=== PATIENT | male | born 1965 | race Caucasian/White ===

== ENCOUNTER 2018-06-03 11:03 | Emergency (ER) | payer MEDICARE, MEDICAID, SELFPAY ==
[2018-06-03 11:06] VITALS: BP 136/82; PULSE 90; RESP 18; TEMP 36.2; O2SAT 98
--- NOTE | 2018-06-03 11:12 | DI.RAD.S_ITS ---
PROCEDURE: XR KNEE RT 3V INDICATIONS: twist and fall TECHNIQUE: 3 views of the knee were acquired. COMPARISON: None. FINDINGS: Bones: No fractures or dislocations. No suspicious bony lesions. Soft tissues: No joint effusion. No suspicious soft tissue calcifications. IMPRESSION: No acute radiographic findings. If pain persists, followup imaging in 5-7 days is recommended to exclude occult fracture. Dictated by: Erma Jewell M.D. on 06/03/2018 at 12:28 Approved by: Erma Jewell M.D. on 06/03/2018 at 12:28
--- NOTE | 2018-06-03 11:56 | ED.LOWEXIN ---
HPI - Extremity Injury (Lower) <Mony Parra PA-C - Last Filed: 06/03/18 19:37> General Chief Complaint: Extremity Injury, Lower Stated Complaint: FELL, HURT RT KNEE Time Seen by Provider: 06/03/18 11:43 Source: patient Mode of arrival: ambulatory Limitations: no limitations History of Present Illness HPI Narrative: This 52-year-old male slipped on ice last night and fell with his right knee at an awkward angle. He states that it is jacked up . He denies any other injury. He is not sure the exactly how he landed. He states that he was able to get up and bear weight but it was very painful and continues to hurt a lot today. He did take some aspirin, but not feeling better so came here to make sure no fracture. He states he does have a feeling like the knee will give out when he bears weight as well. He denies any other complaints today. He does take pain medication for chronic back problems. Related Data Home Medications Medication Instructions Recorded Confirmed aspirin 325 mg PO DAILY 06/03/18 06/03/18 cyclobenzaprine 10 mg PO TID PRN 06/03/18 06/03/18 methocarbamol 500 mg PO DAILY 06/03/18 06/03/18 quetiapine [Seroquel] 50 mg PO BEDTIME 06/03/18 06/03/18 Previous Rx's Medication Instructions Recorded hydrocodone-acetaminophen [[place]] 1 tab PO Q6H PRN #4 tab 06/03/18 meloxicam [Mobic] 15 mg PO DAILY #10 tab 06/03/18 Allergies Allergy/AdvReac Type Severity Reaction Status Date / Time Penicillins Allergy Severe Anaphylaxis Verified 06/03/18 11:09 Review of Systems <Mony Parra PA-C - Last Filed: 06/03/18 19:37> Review of Systems ROS Unobtainable: All systems reviewed & are unremarkable except as noted in HPI and below PFSH <Mony Parra PA-C - Last Filed: 06/03/18 19:37> Medical History Chronic back pain (Chronic) Degenerative disc disease (Chronic) Smoker (Chronic) Surgical History History of colostomy reversal (Resolved) Status post cholecystectomy (Resolved) Status post exploratory laparotomy (Resolved) Status post rotator cuff repair (Resolved) Family History Other No pertinent family history in first degree relatives Social History Smoking Status: Current every day smoker Family History Other No pertinent family history in first degree relatives Social History Smoking Status: Current every day smoker Exam <Mony Parra PA-C - Last Filed: 06/03/18 19:37> Narrative Exam Narrative: GENERAL APPEARANCE: Patient sitting comfortably, in no distress. LUNGS: Clear to auscultation bilaterally. HEART: Rate and rhythm regular without murmur, normal S1 and S2, no S3 or S4. MUSCULOSKELETAL: Right knee there is no effusion. No joint line tenderness but he is tender superior medial to the joint line. He has limited range of motion actively secondary to tenderness, near full passive range of motion. Unable to assess for laxity secondary to tenderness. Initial Vital Signs Initial Vital Signs: Vital Signs Temperature 97.1 F L 06/03/18 11:06 Pulse Rate 90 06/03/18 11:06 Respiratory Rate 18 06/03/18 11:06 Blood Pressure 136/82 06/03/18 11:06 Pulse Oximetry 98 06/03/18 11:06 <Narcisa Owens DO - Last Filed: 06/05/18 07:20> Initial Vital Signs Initial Vital Signs: Vital Signs Temperature 97.1 F L 06/03/18 11:06 Pulse Rate 90 06/03/18 11:06 Respiratory Rate 18 06/03/18 11:06 Blood Pressure 136/82 06/03/18 11:06 Pulse Oximetry 98 06/03/18 11:06 Course <Mony Parra PA-C - Last Filed: 06/03/18 19:37> Additional Information: Patient is comfortable ambulating with knee immobilizer. He will follow up with PCM in a few days for repeat exam and to determine whether any further workup/imaging needed. Orders Ordered: Discontinued Medications Hydrocodone Bitart/Acetaminophen ([place] 5/325) 2 tab PO NOW ONE Stop: 06/03/18 12:25 Last Admin: 06/03/18 12:27 Dose: 2 tab Vital Signs - 8 hr 06/03/18 12:53 Pulse Rate 87 Respiratory Rate 18 Blood Pressure [Left Arm] 134/94 H Pulse Oximetry 95 <Narcisa Owens DO - Last Filed: 06/05/18 07:20> Orders Ordered: Discontinued Medications Hydrocodone Bitart/Acetaminophen ([place] 5/325) 2 tab PO NOW ONE Stop: 06/03/18 12:25 Last Admin: 06/03/18 12:27 Dose: 2 tab Vital Signs - 8 hr 06/03/18 12:53 Pulse Rate 87 Respiratory Rate 18 Blood Pressure [Left Arm] 134/94 H Pulse Oximetry 95 MDM - Extremity Injury (Lower) <Mony Parra PA-C - Last Filed: 06/03/18 19:37> Imaging Data knee: Radiologist's impression: Shane Antunez 52 M [address] [address] XRay Report Signed Patient: Shane Antunez MMR#: [id number] : 1965Acct:[id number] Age/Sex: 52 / MDate of Service: 06/03/18 Loc: ED Accession Number: [id number] Procedure: XR knee RT 3V Ordering Provider: Narcisa Owens D.O. PROCEDURE: XR KNEE RT 3V INDICATIONS: twist and fall TECHNIQUE: 3 views of the knee were acquired. COMPARISON: None. FINDINGS: Bones: No fractures or dislocations. No suspicious bony lesions. Soft tissues: No joint effusion. No suspicious soft tissue calcifications. IMPRESSION: No acute radiographic findings. If pain persists, followup imaging in 5-7 days is recommended to exclude occult fracture. Dictated by: Erma Jewell M.D. on 06/03/2018 at 12:28 Approved by: Erma Jewell M.D. on 06/03/2018 at 12:28 Discharge Plan Departure Patient Disposition: Home Clinical Impression: Internal derangement of knee Qualifiers: Laterality: right Qualified Code(s): M23.91 - Unspecified internal derangement of right knee Discharge Date/Time: 06/03/18 13:04 Interventions: ED Discharge Assessment Last Done: 06/03/18 13:03 Instructions: DI for Knee Pain Activity Restrictions/Additional Instructions: Please wear your knee brace whenever your bearing weight. Rest Try the once daily anti-inflammatory meloxicam that I have sent in for you, as this is more likely to help the acute inflammation than your back pain medicine. Please see your PCP in a few days to reassess. If you are not getting better, you may need further testing and referral. Return if you have any acutely worsening symptoms in the interim Prescriptions: New hydrocodone-acetaminophen [[place]] 5-325 mg tablet 1 tab PO Q6H PRN (Reason: acute knee pain) Qty: 4 RF: 0 meloxicam [Mobic] 15 mg tablet 15 mg PO DAILY Qty: 10 RF: 0 No Action cyclobenzaprine 10 mg Tablet 10 mg PO TID PRN (Reason: Back Pain) RF: 0 methocarbamol 500 mg tablet 500 mg PO DAILY RF: 0 aspirin 325 mg Tablet 325 mg PO DAILY RF: 0 quetiapine [Seroquel] 50 mg Tablet 50 mg PO BEDTIME RF: 0 Referrals: Abdi Allne MD [Non-Staff] - <Narcisa Owens DO - Last Filed: 06/05/18 07:20> Cosign ED Attending Cosignature Attestation: I was immediately available in the department for consultation. This documentation has been reviewed and I agree with assessment and plan. Supervised by Narcisa Owens DO
[2018-06-03] MEDS: HYDROCODONE/ACET 5/325 TABLET 2 TAB PO (12:27)
--- NOTE | 2018-06-03 12:36 | ED_ITS ---
HPI - Extremity Injury (Lower) <Mony Parra PA-C - Last Filed: 06/03/18 19:37> General Chief Complaint: Extremity Injury, Lower Stated Complaint: FELL, HURT RT KNEE Time Seen by Provider: 06/03/18 11:43 Source: patient Mode of arrival: ambulatory Limitations: no limitations History of Present Illness HPI Narrative: This 52-year-old male slipped on ice last night and fell with his right knee at an awkward angle. He states that it is jacked up . He denies any other injury. He is not sure the exactly how he landed. He states that he was able to get up and bear weight but it was very painful and continues to hurt a lot today. He did take some aspirin, but not feeling better so came here to make sure no fracture. He states he does have a feeling like the knee will give out when he bears weight as well. He denies any other complaints today. He does take pain medication for chronic back problems. Related Data Home Medications Medication Instructions Recorded Confirmed aspirin 325 mg PO DAILY 06/03/18 06/03/18 cyclobenzaprine 10 mg PO TID PRN 06/03/18 06/03/18 methocarbamol 500 mg PO DAILY 06/03/18 06/03/18 quetiapine [Seroquel] 50 mg PO BEDTIME 06/03/18 06/03/18 Previous Rx's Medication Instructions Recorded hydrocodone-acetaminophen [[place]] 1 tab PO Q6H PRN #4 tab 06/03/18 meloxicam [Mobic] 15 mg PO DAILY #10 tab 06/03/18 Allergies Allergy/AdvReac Type Severity Reaction Status Date / Time Penicillins Allergy Severe Anaphylaxis Verified 06/03/18 11:09 Review of Systems <Mony Parra PA-C - Last Filed: 06/03/18 19:37> Review of Systems ROS Unobtainable: All systems reviewed & are unremarkable except as noted in HPI and below PFSH <Mony Parra PA-C - Last Filed: 06/03/18 19:37> Medical History Chronic back pain (Chronic) Degenerative disc disease (Chronic) Smoker (Chronic) Surgical History History of colostomy reversal (Resolved) Status post cholecystectomy (Resolved) Status post exploratory laparotomy (Resolved) Status post rotator cuff repair (Resolved) Family History Other No pertinent family history in first degree relatives Social History Smoking Status: Current every day smoker Family History Other No pertinent family history in first degree relatives Social History Smoking Status: Current every day smoker Exam <Mony Parra PA-C - Last Filed: 06/03/18 19:37> Narrative Exam Narrative: GENERAL APPEARANCE: Patient sitting comfortably, in no distress. LUNGS: Clear to auscultation bilaterally. HEART: Rate and rhythm regular without murmur, normal S1 and S2, no S3 or S4. MUSCULOSKELETAL: Right knee there is no effusion. No joint line tenderness but he is tender superior medial to the joint line. He has limited range of motion actively secondary to tenderness, near full passive range of motion. Unable to assess for laxity secondary to tenderness. Initial Vital Signs Initial Vital Signs: Vital Signs Temperature 97.1 F L 06/03/18 11:06 Pulse Rate 90 06/03/18 11:06 Respiratory Rate 18 06/03/18 11:06 Blood Pressure 136/82 06/03/18 11:06 Pulse Oximetry 98 06/03/18 11:06 <Narcisa Owens DO - Last Filed: 06/05/18 07:20> Initial Vital Signs Initial Vital Signs: Vital Signs Temperature 97.1 F L 06/03/18 11:06 Pulse Rate 90 06/03/18 11:06 Respiratory Rate 18 06/03/18 11:06 Blood Pressure 136/82 06/03/18 11:06 Pulse Oximetry 98 06/03/18 11:06 Course <Mony Parra PA-C - Last Filed: 06/03/18 19:37> Additional Information: Patient is comfortable ambulating with knee immobilizer. He will follow up with PCM in a few days for repeat exam and to determine whether any further workup/imaging needed. Orders Ordered: Discontinued Medications Hydrocodone Bitart/Acetaminophen ([place] 5/325) 2 tab PO NOW ONE Stop: 06/03/18 12:25 Last Admin: 06/03/18 12:27 Dose: 2 tab Vital Signs - 8 hr 06/03/18 12:53 Pulse Rate 87 Respiratory Rate 18 Blood Pressure [Left Arm] 134/94 H Pulse Oximetry 95 <Narcisa Owens DO - Last Filed: 06/05/18 07:20> Orders Ordered: Discontinued Medications Hydrocodone Bitart/Acetaminophen ([place] 5/325) 2 tab PO NOW ONE Stop: 06/03/18 12:25 Last Admin: 06/03/18 12:27 Dose: 2 tab Vital Signs - 8 hr 06/03/18 12:53 Pulse Rate 87 Respiratory Rate 18 Blood Pressure [Left Arm] 134/94 H Pulse Oximetry 95 MDM - Extremity Injury (Lower) <Mony Parra PA-C - Last Filed: 06/03/18 19:37> Imaging Data knee: Radiologist's impression: Shane Antunez 52 M [address] [address] XRay Report Signed Patient: Shane Antunez MMR#: [id number] : 1965Acct:[id number] Age/Sex: 52 / MDate of Service: 06/03/18 Loc: ED Accession Number: [id number] Procedure: XR knee RT 3V Ordering Provider: Narcisa Owens D.O. PROCEDURE: XR KNEE RT 3V INDICATIONS: twist and fall TECHNIQUE: 3 views of the knee were acquired. COMPARISON: None. FINDINGS: Bones: No fractures or dislocations. No suspicious bony lesions. Soft tissues: No joint effusion. No suspicious soft tissue calcifications. IMPRESSION: No acute radiographic findings. If pain persists, followup imaging in 5-7 days is recommended to exclude occult fracture. Dictated by: Erma Jewell M.D. on 06/03/2018 at 12:28 Approved by: Erma Jewell M.D. on 06/03/2018 at 12:28 Discharge Plan Departure Patient Disposition: Home Clinical Impression: Internal derangement of knee Qualifiers: Laterality: right Qualified Code(s): M23.91 - Unspecified internal derangement of right knee Discharge Date/Time: 06/03/18 13:04 Interventions: ED Discharge Assessment Last Done: 06/03/18 13:03 Instructions: DI for Knee Pain Activity Restrictions/Additional Instructions: Please wear your knee brace whenever your bearing weight. Rest Try the once daily anti-inflammatory meloxicam that I have sent in for you, as this is more likely to help the acute inflammation than your back pain medicine. Please see your PCP in a few days to reassess. If you are not getting better, you may need further testing and referral. Return if you have any acutely worsening symptoms in the interim Prescriptions: New hydrocodone-acetaminophen [Rector] 5-325 mg tablet 1 tab PO Q6H PRN (Reason: acute knee pain) Qty: 4 RF: 0 meloxicam [Mobic] 15 mg tablet 15 mg PO DAILY Qty: 10 RF: 0 No Action cyclobenzaprine 10 mg Tablet 10 mg PO TID PRN (Reason: Back Pain) RF: 0 methocarbamol 500 mg tablet 500 mg PO DAILY RF: 0 aspirin 325 mg Tablet 325 mg PO DAILY RF: 0 quetiapine [Seroquel] 50 mg Tablet 50 mg PO BEDTIME RF: 0 Referrals: Abdi Allen MD [Non-Staff] - <Narcisa Owens DO - Last Filed: 06/05/18 07:20> Cosign ED Attending Cosignature Attestation: I was immediately available in the department for consultation. This documentation has been reviewed and I agree with assessment and plan. Supervised by Narcisa Owens DO
[2018-06-03 12:53] VITALS: BP 134/94; PULSE 87; RESP 18; O2SAT 95
== END 2018-06-03 13:04 | disposition home or self-care (01) ==
PROVIDERS: Emergency Provider Internal Medicine
DX: M23.91 Unspecified internal derangement of right knee (principal); W01.0XXA Fall on same level from slipping, tripping and stumbling without subsequent striking against object, initial encounter
CPT/HCPCS: 29530; 73562; 99283

== ENCOUNTER → 2018-09-17 12:34 | Outpatient (CLI) | payer MEDICARE, MEDICAID, SELFPAY ==
--- NOTE | 2018-09-17 | DI.MRI.S_ITS ---
PROCEDURE: MR KNEE RT WO CON INDICATIONS: Sprain of medial collateral ligament of right knee. Medial right knee pain TECHNIQUE: Noncontrast sagittal PD fast spin echo and T2 fast spin echo with fat saturation, sagittal 3-D FLASH with fat saturation; coronal T1 spin echo and PD fast spin echo with fat saturation, and axial PD fast spin echo with fat saturation through the knee. COMPARISON: None. FINDINGS: Image quality: Excellent. Menisci: The medial and lateral menisci demonstrate normal morphology and internal signal. The meniscal root ligaments appear intact. Cruciate ligaments: The anterior and posterior cruciate ligaments appear intact. Medial structures: The medial collateral ligament appears intact but there is mild edema involving the anterior extension of the MCL into the medial patellar retinaculum. This appears to represent sprain injury without disruption of the ligamentous structures. The posterior oblique ligament, semimembranosus tendon insertions, oblique popliteal ligament, and meniscocapsular junction appear intact. Visualized portions of the pes anserinus tendons appear normal. No abnormal bursal fluid. Lateral structures: The lateral collateral ligament, long and short heads of the biceps femoris tendon appear intact. The popliteus tendon appears normal; the popliteofibular ligament appears intact. The posterosuperior and anteroinferior popliteomeniscal fascicles appear intact. The arcuate and fabellofibular ligaments appear intact, on either side of the lateral inferior geniculate artery. Iliotibial band appears normal. Anterior structures: The quadriceps and patellar tendons appear intact. Patellar alignment is normal. No femoral trochlear dysplasia or ventral trochlear prominence. No edema in the infrapatellar fat pad. Bones and cartilage: No bone marrow contusions or fractures. The cartilage of the medial and lateral femorotibial compartments, as well as the patellofemoral compartment, appears normal in thickness. Joint space: There is physiologic knee joint fluid. No Bobby's cyst. Normal appearing synovial plicae are incidentally noted. IMPRESSION: Anterior mild soft tissue injury involving the medial collateral ligament as it contiguously extends anteriorly into the medial patellar retinaculum appears present. This is most convincingly demonstrated on the axial fat suppressed proton density scanning series 5, centered on image 25. A ligamentous disruption is not present, no underlying bone bruising is found. There is no sign of osteochondral injury. No effusion or loose body is present. Dictated by: Pedro Mcdaniel M.D. on 09/17/2018 at 15:52 Approved by: Pedro Mcdaniel M.D. on 09/17/2018 at 15:54
== END ==
PROVIDERS: Visit Provider Physician Assistant Surgical
DX: M25.561 Pain in right knee (principal); S83.411D Sprain of medial collateral ligament of right knee, subsequent encounter
CPT/HCPCS: 73721

== ENCOUNTER → 2018-12-26 10:47 | Outpatient (CLI) | payer MEDICARE, MEDICAID, SELFPAY ==
--- NOTE | 2018-12-26 10:52 | DI.MRI.S_ITS ---
PROCEDURE: MR LUMBAR SPINE WO CON INDICATIONS: lumbar pain with radiculopathy TECHNIQUE: Noncontrast sagittal T1 spin echo and T2 fast echo, sagittal STIR, axial T1 and T2 fast spin echo through the lumbar spine. In cases with scoliosis, additional coronal T2 fast spin echo may be performed. COMPARISON: [facility], MR, L-SPINE WITHOUT CONTRAST, 08/17/2010, 17:39. [facility], CR, XR LUMBAR SPINE 2-3V, 12/26/2018, 11:12. FINDINGS: Image quality: Excellent. Alignment and Curvature: There is normal bony alignment. Bone Marrow: Marrow is of normal overall signal. No acute vertebral body compression fractures. Spinal Cord: Conus medullaris terminates at the T12-L1 level. Visualized cord demonstrates normal signal and size. Paraspinous Soft Tissues: No paravertebral masses. T12-L1: No canal stenosis or foraminal stenosis. Facet joints are unremarkable. L1-L2: Unchanged. Mild disc height loss. Mild disc bulge. No canal stenosis or foraminal stenosis. Facet joints are unremarkable. L2-L3: Unchanged. Disc height preserved. No canal stenosis or foraminal stenosis. Facet joint hypertrophy. L3-L4: Unchanged. Disc height preserved. No canal stenosis or foraminal stenosis. Facet joint hypertrophy. L4-L5: Unchanged. Disc desiccation. Disc height preserved. Central posterior annulus tear associated with mild central posterior disc protrusion indenting on the ventral aspect of the thecal sac, abutting the bilateral L5 nerve roots in the lateral recesses. Bilateral facet hypertrophy. Mild bilateral foraminal stenosis. L5-S1: Unchanged. Disc desiccation. Diffuse disc bulge. No canal stenosis or significant foraminal stenosis. Bilateral facet hypertrophy. IMPRESSION: 1. As before, at L4-L5 there is a central posterior annulus tear associated with mild central posterior disc protrusion, abutting the bilateral L5 nerve roots in the lateral recesses. 2. Multilevel facet hypertrophy. Dictated by: Jeremy Sanders M.D. on 12/29/2018 at 10:55 Approved by: Jeremy Sanders M.D. on 12/29/2018 at 11:08
--- NOTE | 2018-12-26 10:52 | DI.RAD.S_ITS ---
PROCEDURE: XR LUMBAR SPINE 2-3V INDICATIONS: lumbar pain with radiculopathy TECHNIQUE: 3 views of the lumbar spine were acquired. COMPARISON: [facility], MR, MR LUMBAR SPINE WO CON, 12/26/2018, 10:56. [facility], CR, XR HIP W PEL IF DONE NOEL 3TO4V, 12/26/2018, 11:14. FINDINGS: Bones: 5 [id number] vertebrae are present. There is normal bony alignment. No vertebral body compression fractures. No suspicious bony lesions. The disc heights are well-preserved. Lower lumbar spine facet arthropathy is seen. Soft tissues: Overlying bowel gas pattern is normal. No suspicious soft tissue calcifications. Cholecystectomy clips are seen. IMPRESSION: Lower lumbar spine facet arthropathy seen by plain film. Dictated by: Patel Machado M.D. on 12/26/2018 at 14:31 Approved by: Patel Machado M.D. on 12/26/2018 at 14:33
--- NOTE | 2018-12-26 10:52 | DI.RAD.S_ITS ---
PROCEDURE: XR HIP W PEL IF DONE LT MIN 4V INDICATIONS: lumbar pain with radiculopathy TECHNIQUE: AP pelvis with lateral view(s) of both hip(s). COMPARISON: [facility], CR, XR LUMBAR SPINE 2-3V, 12/26/2018, 11:12. [facility], MR, MR LUMBAR SPINE WO CON, 12/26/2018, 10:56. FINDINGS: Bones: No acute fractures or dislocations. A remote appearing bone fragment can be seen adjacent to the right lateral acetabulum measuring 9 mm. This may be related to a remote fracture or an unusual appearing os acetabuli. Pelvic ring appears intact. No suspicious bony lesions. There is mild to moderate superior joint space narrowing seen of both hips, with associated remodeling changes with subchondral sclerosis and osteophyte formation. Soft tissues: The visualized bowel gas pattern is normal. No suspicious soft tissue calcifications. IMPRESSION: Mild to moderate degenerative changes are seen of both hips. A remote fracture fragment versus an os acetabuli can be seen on the right. Dictated by: Patel Machado M.D. on 12/26/2018 at 14:33 Approved by: Patel Machado M.D. on 12/26/2018 at 14:35
== END ==
PROVIDERS: PCP Student in an Organized Health Care Education/Training Program; Visit Provider Registered Nurse
DX: M51.16 Intervertebral disc disorders with radiculopathy, lumbar region (principal); M25.551 Pain in right hip; M47.27 Other spondylosis with radiculopathy, lumbosacral region
CPT/HCPCS: 72100; 72148; 73522

== ENCOUNTER 2018-12-26 11:26 | Emergency (ER) | payer MEDICARE, MEDICAID, SELFPAY ==
[2018-12-26 11:34] VITALS: BP 145/99; PULSE 82; RESP 20; TEMP 36.6; O2SAT 98; BMI 27.3
[2018-12-26] MEDS: KETOROLAC 60 MG/2 ML VIAL IM (12:42)
[2018-12-26 12:48] LABS: INR 0.9 (0.9-1.3)
[2018-12-26 12:49] LABS: Add Manual Diff / Slide Review NO; Basophils Absolute Auto 100 /uL (0-100); Basophils Percent Auto 0.7 % (0-2); Eosinophils Absolute Auto 200 /uL (0-450); Eosinophils Percent Auto 2.6 % (2-4); Hematocrit 42.9 % (41-53); Hemoglobin 14.5 g/dL (13.5-17.5); Lymphocytes Absolute Auto 1300 /uL (1100-4500); Lymphocytes Percent Auto 16.3 % (25-40); Mean Corpuscular HGB Conc 33.8 % (30-36); Mean Corpuscular Hemoglobin 30.9 PG (26-34); Mean Corpuscular Volume 91.4 fL (80-100); Monocytes Absolute Auto 500 /uL (0-900); Monocytes Percent Auto 5.9 % (3-14); Neutrophils Absolute Auto 6000 /uL (1500-7000); Neutrophils Percent Auto 74.5 % (50-75); Platelet Count 245 X10^3/uL (150-400); Red Blood Cell Count 4.69 X10^6/uL (4.5-5.9); Red Cell Distribution Width 15.7 % (11.6-14.8); White Blood Cell Count 8.1 X10^3/uL (4.5-11.0)
[2018-12-26 12:50] LABS: PTT Partial Thromboplastin Tim 33 SECONDS (26.4-36.2)
[2018-12-26 12:57] LABS: Alanine Aminotransferase 34 IU/L (21-72); Albumin 4.6 g/dL (3.5-5.0); Albumin Globulin Ratio 1.4 (1.0-2.8); Alkaline Phosphatase 118 U/L (38-126); Aspartate Aminotransferase 49 IU/L (17-59); BUN Creatinine Ratio 11.3 (6-22); Bilirubin Total 0.5 mg/dL (0.2-1.3); Blood Urea Nitrogen 9 mg/dL (9-20); Calcium 9.5 mg/dL (8.4-10.2); Carbon Dioxide 29 mmol/L (22-32); Chloride 102 mmol/L (98-107); Estimated Glomerular Filt Rate > 60.0 mL/min (>60); Globulin 3.4 g/dL (1.7-4.1); Glucose 99 mg/dL (70-100); HEMOLYSIS < 15 (0-50); Magnesium 2.2 mg/dL (1.6-2.3); Potassium 4.4 mmol/L (3.4-5.1); Sodium 141 mmol/L (137-145)
[2018-12-26 13:26] VITALS: BP 152/86; PULSE 98; RESP 20; O2SAT 99
--- NOTE | 2018-12-26 13:33 | ED_ITS ---
HPI - Male Genitourinary <EUGENIO Gonzalez - Last Filed: 12/26/18 14:14> General Chief complaint: Urogenital-Male Stated complaint: surg 2yrs ago/hernia injury x3 days Time Seen by Provider: 12/26/18 11:48 Source: patient and family Mode of arrival: ambulatory Limitations: no limitations History of Present Illness HPI Narrative: The patient is a 53-year-old male current smoker with history of hernia who presents with a chief complaint of ?I think I ruptured my hernia again.He states that he was lifting motor 2 days ago, when he felt sudden pain on his left lower quadrant. He states he has history of hernia repair at that location, with mesh placement. He states that there pain has gotten better over the past 2 days, but he came to town today for an MRI of his back. He states that while he was here getting an MRI, he figured he should come to the emergency department to have this evaluated. He denies any fevers nausea vomiting or diarrhea. He has not taken anything for the pain. He denies any chest pain or shortness of breath. He denies any dysuria urgency or frequency or testicular pain. Related Data Previous Rx's Medication Instructions Recorded cyclobenzaprine 10 mg tablet 10 mg PO TID PRN #90 tab 11/13/18 acetaminophen 300 mg-codeine 30 mg 1 tab PO TID PRN #10 tab 11/18/18 tablet meloxicam 7.5 mg tablet 15 mg PO DAILY #180 tab MDD 15 mg 12/14/18 pregabalin 25 mg capsule 25 mg PO TID #90 cap 12/14/18 hydrocodone-acetaminophen [[place]] 1 tab PO Q4-6H PRN #7 tab 12/26/18 Allergies Allergy/AdvReac Type Severity Reaction Status Date / Time Penicillins Allergy Severe Anaphylaxis Verified 12/14/18 13:36 Review of Systems <EUGENIO Gonzalez - Last Filed: 12/26/18 14:14> Review of Systems Narrative: GENERAL: Denies chills, fatigue, malaise, fever, sweats. HEENT: Denies sinus pain, ear pain, sore throat, difficulty swallowing, dizziness. RESPIRATORY: Denies dyspnea, cough, wheezing, hemoptysis, sputum. CARDIOVASCULAR: Denies chest pain, palpitations, orthopnea, edema, GASTROINTESTINAL: See HPI : Denies dysuria, frequency, incontinence, hematuria, urinary retention. MUSCULOSKELETAL: denies weakness, joint pain, or bony pain SKIN: Denies rash, skin lesions, or other NEUROLOGIC: Denies weakness, headache, numbness, change in speech, confusion, seizures, incoordination. PSYCHIATRIC: No concerning psychosocial issues. 12 point review of systems is negative except for those stated above PFSH <EUGENIO Gonzalez - Last Filed: 12/26/18 14:14> Medical History Chronic back pain (Chronic) Degenerative disc disease (Chronic) Smoker (Chronic) Surgical History History of colostomy reversal (Resolved) Status post cholecystectomy (Resolved) Status post exploratory laparotomy (Resolved) Status post rotator cuff repair (Resolved) Family History Other No pertinent family history in first degree relatives Social History Smoking Status: Current every day smoker Family History Other No pertinent family history in first degree relatives Social History Smoking Status: Current every day smoker Exam <EUGENIO Gonzalez - Last Filed: 12/26/18 14:14> Narrative Exam Narrative: GENERAL: This is a well-nourished, well-developed patient, no acute distress HEAD: Atraumatic. Normocephalic. No temporal or scalp tenderness. EYES: Pupils equal round and reactive. Extraocular motions intact. No scleral icterus. No injection or drainage. ENT: Nose without bleeding, purulent drainage or septal hematoma. Throat without erythema, tonsillar hypertrophy or exudate. Uvula midline. Airway patent. NECK: Trachea midline. No JVD or lymphadenopathy. Supple, nontender, no meningeal signs. CARDIOVASCULAR: Regular rate and rhythm RESPIRATORY: Clear to auscultation. Breath sounds equal bilaterally. No wheezes, rales, or rhonchi. No cough. No increased respiratory effort. No accessory muscle use. GASTROINTESTINAL: Abdomen soft, diffusely tender to palpation left side nondistended. No hepato-splenomegaly, or palpable masses. No guarding. Active bowel sounds all 4 quadrants. BACK: Nontender without deformity or crepitance. No flank tenderness. NEURO: AOx3. SKIN: No rash or erythema. Initial Vital Signs Initial Vital Signs: Vital Signs Temperature 97.9 F 12/26/18 11:34 Pulse Rate 82 12/26/18 11:34 Respiratory Rate 20 12/26/18 11:34 Blood Pressure 145/99 H 12/26/18 11:34 Pulse Oximetry 98 12/26/18 11:34 <Abdi Cabrera DO - Last Filed: 12/26/18 14:24> Initial Vital Signs Initial Vital Signs: Vital Signs Temperature 97.9 F 12/26/18 11:34 Pulse Rate 82 12/26/18 11:34 Respiratory Rate 20 12/26/18 11:34 Blood Pressure 145/99 H 12/26/18 11:34 Pulse Oximetry 98 12/26/18 11:34 Course <EUGENIO Gonzalez - Last Filed: 12/26/18 14:14> Orders Ordered: ED Orders 12/26/18 12:31 Complete Blood Count AUTO DIFF Stat Comprehensive Metabolic Panel Stat Magnesium Stat Partial Thromboplastin Time Stat Prothrombin Time INR Stat Discontinued Medications Ketorolac Tromethamine (Toradol) 60 mg IM NOW ONE Stop: 12/26/18 12:37 Last Admin: 12/26/18 12:42 Dose: 60 mg Documented by: TASHA Vital Signs Vital signs: Vital Signs - 8 hr 12/26/18 11:34 12/26/18 13:26 Temperature 97.9 F Pulse Rate 82 98 H Respiratory Rate 20 20 Blood Pressure 145/99 H Blood Pressure [Right Arm] 152/86 H Pulse Oximetry 98 99 <Abdi Cabrera DO - Last Filed: 12/26/18 14:24> Orders Ordered: ED Orders 12/26/18 12:31 Complete Blood Count AUTO DIFF Stat Comprehensive Metabolic Panel Stat Magnesium Stat Partial Thromboplastin Time Stat Prothrombin Time INR Stat Discontinued Medications Ketorolac Tromethamine (Toradol) 60 mg IM NOW ONE Stop: 12/26/18 12:37 Last Admin: 12/26/18 12:42 Dose: 60 mg Documented by: RSTONE Vital Signs Vital signs: Vital Signs - 8 hr 12/26/18 11:34 12/26/18 13:26 Temperature 97.9 F Pulse Rate 82 98 H Respiratory Rate 20 20 Blood Pressure 145/99 H Blood Pressure [Right Arm] 152/86 H Pulse Oximetry 98 99 MDM - Male Genitourinary <Narcisa Lr, CHANNELING MACHINE OPERATOR-BC - Last Filed: 12/26/18 14:14> Lab Data Result diagrams: 12/26/18 12:31 12/26/18 12:31 Labs: Lab Results 12/26/18 12/26/18 12/26/18 Range/Units 12:31 12:31 12:31 WBC 8.1 (4.5-11.0) X10^3/uL RBC 4.69 (4.5-5.9) X10^6/uL Hgb 14.5 (13.5-17.5) g/dL Hct 42.9 (41-53) % MCV 91.4 (80-100) fL MCH 30.9 (26-34) PG MCHC 33.8 (30-36) % RDW 15.7 H (11.6-14.8) % Plt Count 245 (150-400) X10^3/uL Neut % (Auto) 74.5 (50-75) % Lymph % (Auto) 16.3 L (25-40) % Page % (Auto) 5.9 (3-14) % Eos % (Auto) 2.6 (2-4) % Baso % (Auto) 0.7 (0-2) % Neut # (Auto) 6000 (6164-5824) /uL Lymph # (Auto) 1300 (7925-8482) /uL [place] # (Auto) 500 (0-900) /uL Eos # (Auto) 200 (0-450) /uL Baso # (Auto) 100 (0-100) /uL PT 10.0 L (10.1-12.7) SECONDS INR 0.9 (0.9-1.3) APTT 33 (26.4-36.2) SECONDS Sodium 141 (137-145) mmol/L Potassium 4.4 (3.4-5.1) mmol/L Chloride 102 (98-107) mmol/L Carbon Dioxide 29 (22-32) mmol/L BUN 9 (9-20) mg/dL Creatinine 0.80 (0.66-1.25) mg/dL Estimated GFR > 60.0 (>60) mL/min BUN/Creatinine Ratio 11.3 (6-22) Glucose 99 (70-100) mg/dL Calcium 9.5 (8.4-10.2) mg/dL Magnesium 2.2 (1.6-2.3) mg/dL Total Bilirubin 0.5 (0.2-1.3) mg/dL AST 49 (17-59) IU/L ALT 34 (21-72) IU/L Alkaline Phosphatase 118 (38-126) U/L Total Protein 8.0 (6.3-8.2) g/dL Albumin 4.6 (3.5-5.0) g/dL Globulin 3.4 (1.7-4.1) g/dL Albumin/Globulin Ratio 1.4 (1.0-2.8) Urine Dip Bedside Urine Glucose Negative Bedside Urine Bilirubin - Negative Bedside Urine Ketone - Negative Urine Specific [place] 1.010 Bedside Urine Occult Blood - Negative Bedside Urine pH 6.0 Bedside Urine Protein - Negative Bedside Urine Urobilinogen - Negative Bedside Urine Nitrite - Negative Bedside Urine Leukocytes - Negative Esterase MDM Narrative Medical decision making narrative: The patient is a 53-year-old male who presents with a chief complaint of a probable hernia. He states that he felt pain and burning 2 days ago when lifting a motor. He does not suspect any strangulation, as he does not have any fever vomiting diarrhea and the pain has been improving. I tend to agree with him, supported by the fact that he has no leukocytosis. I discussed at length the possibility of an ultrasound to visualize the etiology of his pain. He does not have an acute abdominal exam. However the patient does not want to wait for any imaging to be done today, and would rather follow-up with his PCP. The patient repeatedly declined any imaging today. I discussed at length follow up with his PCP, return precautions such as worsening pain, inability keep down fluids etc. Patient have no questions or concerns upon discharge. <Abdi Cabrera, - Last Filed: 12/26/18 14:24> Lab Data Labs: Lab Results 12/26/18 12/26/18 12/26/18 Range/Units 12:31 12:31 12:31 WBC 8.1 (4.5-11.0) X10^3/uL RBC 4.69 (4.5-5.9) X10^6/uL Hgb 14.5 (13.5-17.5) g/dL Hct 42.9 (41-53) % MCV 91.4 (80-100) fL MCH 30.9 (26-34) PG MCHC 33.8 (30-36) % RDW 15.7 H (11.6-14.8) % Plt Count 245 (150-400) X10^3/uL Neut % (Auto) 74.5 (50-75) % Lymph % (Auto) 16.3 L (25-40) % Page % (Auto) 5.9 (3-14) % Eos % (Auto) 2.6 (2-4) % Baso % (Auto) 0.7 (0-2) % Neut # (Auto) 6000 (4868-7022) /uL Lymph # (Auto) 1300 (2485-8382) /uL Page # (Auto) 500 (0-900) /uL Eos # (Auto) 200 (0-450) /uL Baso # (Auto) 100 (0-100) /uL PT 10.0 L (10.1-12.7) SECONDS INR 0.9 (0.9-1.3) APTT 33 (26.4-36.2) SECONDS Sodium 141 (137-145) mmol/L Potassium 4.4 (3.4-5.1) mmol/L Chloride 102 (98-107) mmol/L Carbon Dioxide 29 (22-32) mmol/L BUN 9 (9-20) mg/dL Creatinine 0.80 (0.66-1.25) mg/dL Estimated GFR > 60.0 (>60) mL/min BUN/Creatinine Ratio 11.3 (6-22) Glucose 99 (70-100) mg/dL Calcium 9.5 (8.4-10.2) mg/dL Magnesium 2.2 (1.6-2.3) mg/dL Total Bilirubin 0.5 (0.2-1.3) mg/dL AST 49 (17-59) IU/L ALT 34 (21-72) IU/L Alkaline Phosphatase 118 (38-126) U/L Total Protein 8.0 (6.3-8.2) g/dL Albumin 4.6 (3.5-5.0) g/dL Globulin 3.4 (1.7-4.1) g/dL Albumin/Globulin Ratio 1.4 (1.0-2.8) Urine Dip Bedside Urine Glucose Negative Bedside Urine Bilirubin - Negative Bedside Urine Ketone - Negative Urine Specific [place] 1.010 Bedside Urine Occult Blood - Negative Bedside Urine pH 6.0 Bedside Urine Protein - Negative Bedside Urine Urobilinogen - Negative Bedside Urine Nitrite - Negative Bedside Urine Leukocytes - Negative Esterase Discharge Plan Departure Patient Disposition: Home Clinical Impression: Abdominal pain Qualifiers: Abdominal location: left lower quadrant Qualified Code(s): R10.32 - Left lower quadrant pain Discharge Date/Time: 12/26/18 13:27 Instructions: DI for Abdominal Pain-Adult, Abdominal Hernia Activity Restrictions/Additional Instructions: I have given you a small prescription of pain medication. This can be constip ating or sedating. As discussed, your lab work came back normal. You declined to wait for an abdominal ultrasound today. However given your pain at your previous hernia site, I believe an ultrasound would be beneficial. Please follow up with primary care provider in the next few days. Please come back to the emergency department for any acute concerns such as severe abdominal pain, inability keep down fluids etc Prescriptions: New hydrocodone-acetaminophen [[place]] 5-325 mg tablet 1 tab PO Q4-6H PRN (Reason: pain) Qty: 7 RF: 0 No Action acetaminophen-codeine 300-30 mg tablet 1 tab PO TID PRN (Reason: pain) Qty: 10 RF: 0 meloxicam 7.5 mg tablet 15 mg PO DAILY MDD 15 mg Qty: 180 RF: 1 cyclobenzaprine 10 mg tablet 10 mg PO TID PRN (Reason: Back Pain) Qty: 90 RF: 2 pregabalin 25 mg capsule 25 mg PO TID Qty: 90 RF: 3 Referrals: Collin Renee MD [Primary Care Provider] - <Abdi Cabrera DO - Last Filed: 12/26/18 14:24> Sign Out Provider Sign Out Attestation: I was available for consultation during this patient's emergency department encounter
[2018-12-30 11:59] LABS: Cholesterol 231 mg/dL (140-199); Triglycerides 115 mg/dL (35-150)
[2018-12-30 12:09] LABS: HDL Cholesterol 121 mg/dL (40-60); LDL Cholesterol Calculated 87 mg/dL (<100)
[2018-12-30 12:16] LABS: Vitamin D 25 Hydroxy (D3) 15.3 ng/mL (30.0-100.0)
== END 2018-12-26 13:27 | disposition home or self-care (01) ==
PROVIDERS: Emergency Provider Nurse Practitioner Family; PCP Student in an Organized Health Care Education/Training Program
DX: R10.32 Left lower quadrant pain (principal); M54.16 Radiculopathy, lumbar region; M25.551 Pain in right hip; M47.27 Other spondylosis with radiculopathy, lumbosacral region
CPT/HCPCS: 72100; 72148; 73522; 80053; 80061; 81003; 82306; 83735; 85025; 85610; 85730; 96372; 99282; 99284; J1885

== ENCOUNTER 2019-01-05 12:43 | Emergency (ER) | payer MEDICARE, MEDICAID, SELFPAY ==
[2019-01-05 13:02] VITALS: BP 148/99; PULSE 70; RESP 14; TEMP 36.2; O2SAT 99
--- NOTE | 2019-01-05 13:06 | ED.ABDPAIN ---
HPI - Abdominal Pain General Chief Complaint: Abdominal Pain Stated Complaint: Severe stomach pain on left side Time Seen by Provider: 01/05/19 12:59 Source: patient Mode of arrival: ambulatory Limitations: no limitations History of Present Illness HPI narrative: The patient is a 53-year-old male with history of colectomy presenting with worsening abdominal pain. He says it has been ongoing for last 2 weeks he was seen and evaluated here December 26 read blood work and a CT. He says it has gotten worse. He is able to eat and drink normally. He denies any nausea or vomiting no fevers. He is having bowel movements. He has intense pain that starts on the right side of his abdomen and moved to the left. He is unable to get comfortable. MD complaint: abdominal pain Onset (ago): week(s) (2) Pain Consistency: intermittent Severity: mild Quality: cramping and stabbing Related Data Home Medications Medication Instructions Recorded Confirmed quetiapine 50 mg PO BEDTIME 01/05/19 01/05/19 tramadol 50 mg PO BID PRN 01/05/19 Previous Rx's Medication Instructions Recorded cyclobenzaprine 10 mg tablet 10 mg PO TID PRN #90 tab 11/13/18 meloxicam 7.5 mg tablet 15 mg PO DAILY #180 tab MDD 15 mg 12/14/18 pregabalin 25 mg capsule 25 mg PO TID #90 cap 12/14/18 hydrocodone-acetaminophen [[place]] 1 tab PO Q4-6H PRN #7 tab 12/26/18 hydrocodone-acetaminophen 1 tab PO Q6H PRN #10 tab 01/05/19 ondansetron 4 mg PO Q6-8H PRN #10 tab 01/05/19 Allergies Allergy/AdvReac Type Severity Reaction Status Date / Time Penicillins Allergy Severe Anaphylaxis Verified 12/14/18 13:36 Review of Systems Review of Systems Narrative: GENERAL: Denies chills, fatigue, malaise, fever, sweats, travel HEENT: Denies sinus pain, ear pain, sore throat, difficulty swallowing, neck pain RESPIRATORY: Denies dyspnea, cough, wheezing, hemoptysis, sputum. CARDIOVASCULAR: Denies chest pain, palpitations, orthopnea, edema GASTROINTESTINAL: See HPI : Denies dysuria, frequency, incontinence, hematuria, urinary retention, flank pain. MUSCULOSKELETAL: Denies weakness, joint pain, or bony pain SKIN: No rash, no erythema, no pruritus NEUROLOGIC: Denies weakness, dizziness, headache, numbness, change in speech, confusion PSYCHIATRIC: No concerning psychosocial issues. 12 point review of systems is negative except for those stated above and HPI PFSH Medical History Chronic back pain (Chronic) Degenerative disc disease (Chronic) Smoker (Chronic) Surgical History History of colostomy reversal (Resolved) Status post cholecystectomy (Resolved) Status post exploratory laparotomy (Resolved) Status post rotator cuff repair (Resolved) Family History Other No pertinent family history in first degree relatives Social History Smoking Status: Current every day smoker Family History Other No pertinent family history in first degree relatives Social History Smoking Status: Current every day smoker Exam Initial Vital Signs Initial Vital Signs: Vital Signs Temperature 97.2 F L 01/05/19 13:02 Pulse Rate 70 01/05/19 13:02 Respiratory Rate 14 01/05/19 13:02 Blood Pressure 148/99 H 01/05/19 13:02 Pulse Oximetry 99 01/05/19 13:02 GENERAL: Alert male hunched over appears in pain HEENT: Head atraumatic,EOMI, pupils reactive, face symmetric, moist mucous membranes CARDIOVASCULAR: Regular rate and rhythm without murmurs, rubs or gallops. RESPIRATORY: Breath sounds equal bilaterally, no wheezes rales or rhonchi. ABDOMEN: Soft, scars noted abdomen is nondistended normal bowel sounds minimally tender across the mid abdomen no guarding rebound or localization EXTREMITIES: Normal range of motion, no clubbing or edema. Neurovascularly intact NEUROLOGICAL: Alert and oriented x4.Normal gait and speech. SKIN: Warm, dry, no laceration, no petechiae, no rashes or lesions. Course Orders Ordered: ED Orders 01/05/19 13:10 Complete Blood Count AUTO DIFF Stat Comprehensive Metabolic Panel Stat Lipase Stat 01/05/19 13:23 CT abdomen pelvis w con Stat Discontinued Medications Hydromorphone HCl (Dilaudid) 0.5 mg IV NOW ONE Stop: 01/05/19 13:18 Last Admin: 01/05/19 13:29 Dose: 0.5 mg Documented by: GINO Hydromorphone HCl (Dilaudid) 1 mg IV NOW ONE Stop: 01/05/19 15:53 Last Admin: 01/05/19 16:00 Dose: 1 mg Documented by: GINO Sodium Chloride (Normal Saline 0.9%) 1,000 mls @ 150 mls/hr IV CONT SHAINA Last Infusion: 01/05/19 16:28 Dose: 0 mls/hr Documented by: Admin: 01/05/19 13:29 Dose: 150 mls/hr Documented by: GINO Ketorolac Tromethamine (Toradol) 30 mg IV NOW ONE Stop: 01/05/19 15:15 Last Admin: 01/05/19 15:34 Dose: 30 mg Documented by: GINO Prochlorperazine (Compazine) 10 mg IV NOW ONE Stop: 01/05/19 15:53 Last Admin: 01/05/19 15:59 Dose: 10 mg Documented by: GINO Vital Signs Vital signs: Vital Signs - 8 hr 01/05/19 13:02 01/05/19 14:23 01/05/19 15:04 Temperature 97.2 F L Pulse Rate 70 85 81 Respiratory Rate 14 20 17 Blood Pressure 148/99 H Blood Pressure [Left Arm] 130/80 129/81 Pulse Oximetry 99 99 97 01/05/19 15:59 01/05/19 16:29 Temperature Pulse Rate 70 74 Respiratory Rate 14 Blood Pressure 115/73 119/78 Blood Pressure [Left Arm] Pulse Oximetry 96 MDM - Abdominal Pain Lab Data Attestation: I reviewed the patient's lab results. Result diagrams: 01/05/19 13:10 01/05/19 13:10 Labs: Lab Results 01/05/19 01/05/19 Range/Units 13:10 13:10 WBC 5.5 (4.5-11.0) X10^3/uL RBC 4.79 (4.5-5.9) X10^6/uL Hgb 14.7 (13.5-17.5) g/dL Hct 43.5 (41-53) % MCV 90.7 (80-100) fL MCH 30.7 (26-34) PG MCHC 33.8 (30-36) % RDW 15.7 H (11.6-14.8) % Plt Count 166 (150-400) X10^3/uL Neut % (Auto) 63.4 (50-75) % Lymph % (Auto) 27.8 (25-40) % [place] % (Auto) 5.0 (3-14) % Eos % (Auto) 2.7 (2-4) % Baso % (Auto) 1.1 (0-2) % Neut # (Auto) 3500 (0060-7371) /uL Lymph # (Auto) 1500 (0343-6329) /uL [place] # (Auto) 300 (0-900) /uL Eos # (Auto) 100 (0-450) /uL Baso # (Auto) 100 (0-100) /uL Sodium 142 (137-145) mmol/L Potassium 4.2 (3.4-5.1) mmol/L Chloride 102 (98-107) mmol/L Carbon Dioxide 23 (22-32) mmol/L BUN 9 (9-20) mg/dL Creatinine 0.70 (0.66-1.25) mg/dL Estimated GFR > 60.0 (>60) mL/min BUN/Creatinine Ratio 12.9 (6-22) Glucose 115 H (70-100) mg/dL Calcium 8.8 (8.4-10.2) mg/dL Total Bilirubin 0.5 (0.2-1.3) mg/dL AST 172 H (17-59) IU/L ALT 76 H (21-72) IU/L Alkaline Phosphatase 127 H (38-126) U/L Total Protein 8.0 (6.3-8.2) g/dL Albumin 4.8 (3.5-5.0) g/dL Globulin 3.2 (1.7-4.1) g/dL Albumin/Globulin Ratio 1.5 (1.0-2.8) Lipase 169 (23-300) U/L Point of care testing: Urine Dip Bedside Urine Glucose Negative Bedside Urine Bilirubin - Negative Bedside Urine Ketone - Negative Urine Specific [place] 1.010 Bedside Urine Occult Blood - Negative Bedside Urine pH 6.0 Bedside Urine Protein - Negative Bedside Urine Urobilinogen - Negative Bedside Urine Nitrite - Negative Bedside Urine Leukocytes - Negative Esterase Imaging Data Chest x-ray: Radiologist's impression: PROCEDURE: CT ABDOMEN PELVIS W CON INDICATIONS: severe abd pain TECHNIQUE: After the administration of intravenous contrast, 5 mm thick sections acquired from the diaphragm to the symphysis. 5 mm coronal and sagittal reformats were acquired. For radiation dose reduction, the following was used: automated exposure control, adjustment of mA and/or kV according to patient size. COMPARISON: None. FINDINGS: Image quality: Excellent. ABDOMEN: Lung bases: Lung bases are clear. Heart size is normal. Solid organs: Liver is enlarged, and demonstrates diffusely decreased density. Gallbladder is surgically absent. Biliary system is non dilated. Pancreas enhances normally. Spleen is normal in size and enhancement. No adrenal nodules. Kidneys demonstrate normal size and enhancement, without hydronephrosis. Peritoneum and bowel: Small hiatal hernia. Bowel loops demonstrate normal wall thickness and caliber. No free fluid or air. Normal appendix. Bowel anastomosis within the mid sigmoid colon. Nodes and vessels: No retroperitoneal or mesenteric adenopathy by size criteria. Aorta and inferior vena cava are normal in size. Miscellaneous: No ventral hernias. PELVIS: Genitourinary: Bladder wall thickness is normal. Miscellaneous: No inguinal hernias or adenopathy. Bones: No suspicious bony lesions. No vertebral body compression fractures. IMPRESSION: 1. No acute process. 2. Normal appendix. 3. Hepatic stent ptosis. Dictated by: Blank Pedroza M.D. on 01/05/2019 at 13:58 MDM Narrative Medical decision making narrative: Patient's pain is slightly better after Dilaudid of still having pain he is given Toradol and another dose of Dilaudid. At this time CT does not show any abnormality. Blood work also reassuring. I recommended that he follow up PCP and may need a referral to surgery is for consultation. But at this time there is no need for any emergent surgery consultation. Discharge Plan Departure Patient Disposition: Home Clinical Impression: Abdominal pain Qualifiers: Abdominal location: generalized Qualified Code(s): R10.84 - Generalized abdominal pain Discharge Date/Time: 01/05/19 16:30 Instructions: DI for Abdominal Pain-Adult Activity Restrictions/Additional Instructions: *You have been diagnosed with abdominal pain *What to do: You may require a surgery referral which her primary care physician help you with. At this time her CT scan does not show any need for emergent surgery but it does not identify the problem either. Blood work today is reassuring. *Continue to take medications as directed [place] 1 tablet every 6 hours if needed for pain Zofran 4 mg every 8 hours if needed for nausea or vomiting *Follow up with your primary care provider in 2-3 days *Return to ER if you should have increasing abdominal pain inability to tolerate fluids, persistent vomiting, or any new, worsening or concerning symptoms CONTROLLED SUBSTANCE DISCHARGE (Narcotoic/benzodiazepine/Flexeril/Phenergan) 1. You have been prescribed narcotic medications, it does have acetaminophen/Tylenol/paracetamol in it so do not take extra Tylenol or Tylenol containing products 2. Please understand that we cannot provide further refills of narcotics, benzodiazepines or controlled substances through the ED and her pain management will need to be through your provider. 3. While on these medications you cannot drive or operate heavy machinery. 4. You cannot sign legal documents or perform any duties such as this. 5. As long as you're taking opiate pain medications he should also be taking a stool softener such as Colace, Dulcolax, MiraLAX or prune juice, to help avoid constipation. Prescriptions: New hydrocodone-acetaminophen 5-325 mg tablet 1 tab PO Q6H PRN (Reason: pain) Qty: 10 RF: 0 ondansetron 4 mg tablet,disintegrating 4 mg PO Q6-8H PRN (Reason: nausea and vomiting) Qty: 10 RF: 0 No Action meloxicam 7.5 mg tablet 15 mg PO DAILY MDD 15 mg Qty: 180 RF: 1 cyclobenzaprine 10 mg tablet 10 mg PO TID PRN (Reason: Back Pain) Qty: 90 RF: 2 tramadol 50 mg tablet 50 mg PO BID PRN (Reason: pain) RF: 0 quetiapine 50 mg tablet 50 mg PO BEDTIME RF: 0 hydrocodone-acetaminophen [[place]] 5-325 mg tablet 1 tab PO Q4-6H PRN (Reason: pain) Qty: 7 RF: 0 pregabalin 25 mg capsule 25 mg PO TID Qty: 90 RF: 3 Referrals: Collin Renee MD [Primary Care Provider] -
[2019-01-05 13:23] LABS: Add Manual Diff / Slide Review NO; Basophils Absolute Auto 100 /uL (0-100); Basophils Percent Auto 1.1 % (0-2); Eosinophils Absolute Auto 100 /uL (0-450); Eosinophils Percent Auto 2.7 % (2-4); Hematocrit 43.5 % (41-53); Hemoglobin 14.7 g/dL (13.5-17.5); Lymphocytes Absolute Auto 1500 /uL (1100-4500); Lymphocytes Percent Auto 27.8 % (25-40); Mean Corpuscular HGB Conc 33.8 % (30-36); Mean Corpuscular Hemoglobin 30.7 PG (26-34); Mean Corpuscular Volume 90.7 fL (80-100); Monocytes Absolute Auto 300 /uL (0-900); Neutrophils Absolute Auto 3500 /uL (1500-7000); Neutrophils Percent Auto 63.4 % (50-75); Platelet Count 166 X10^3/uL (150-400); Red Blood Cell Count 4.79 X10^6/uL (4.5-5.9); Red Cell Distribution Width 15.7 % (11.6-14.8); White Blood Cell Count 5.5 X10^3/uL (4.5-11.0)
--- NOTE | 2019-01-05 13:23 | DI.CT.S_ITS ---
PROCEDURE: CT ABDOMEN PELVIS W CON INDICATIONS: severe abd pain TECHNIQUE: After the administration of intravenous contrast, 5 mm thick sections acquired from the diaphragm to the symphysis. 5 mm coronal and sagittal reformats were acquired. For radiation dose reduction, the following was used: automated exposure control, adjustment of mA and/or kV according to patient size. COMPARISON: None. FINDINGS: Image quality: Excellent. ABDOMEN: Lung bases: Lung bases are clear. Heart size is normal. Solid organs: Liver is enlarged, and demonstrates diffusely decreased density. Gallbladder is surgically absent. Biliary system is non dilated. Pancreas enhances normally. Spleen is normal in size and enhancement. No adrenal nodules. Kidneys demonstrate normal size and enhancement, without hydronephrosis. Peritoneum and bowel: Small hiatal hernia. Bowel loops demonstrate normal wall thickness and caliber. No free fluid or air. Normal appendix. Bowel anastomosis within the mid sigmoid colon. Nodes and vessels: No retroperitoneal or mesenteric adenopathy by size criteria. Aorta and inferior vena cava are normal in size. Miscellaneous: No ventral hernias. PELVIS: Genitourinary: Bladder wall thickness is normal. Miscellaneous: No inguinal hernias or adenopathy. Bones: No suspicious bony lesions. No vertebral body compression fractures. IMPRESSION: 1. No acute process. 2. Normal appendix. 3. Hepatic stent ptosis. Dictated by: Blank Pedroza M.D. on 01/05/2019 at 13:58 Approved by: Blank Pedroza M.D. on 01/05/2019 at 14:07
[2019-01-05] MEDS: HYDROMORPHONE 1 MG INJ 0.5 MG IV (13:29)
[2019-01-05] MEDS: SODIUM CHLORIDE 0.9% 1,000 ML 150 ML IV (13:29)
[2019-01-05 13:35] LABS: Alanine Aminotransferase 76 IU/L (21-72); Albumin 4.8 g/dL (3.5-5.0); Albumin Globulin Ratio 1.5 (1.0-2.8); Alkaline Phosphatase 127 U/L (38-126); Aspartate Aminotransferase 172 IU/L (17-59); BUN Creatinine Ratio 12.9 (6-22); Bilirubin Total 0.5 mg/dL (0.2-1.3); Blood Urea Nitrogen 9 mg/dL (9-20); Calcium 8.8 mg/dL (8.4-10.2); Carbon Dioxide 23 mmol/L (22-32); Chloride 102 mmol/L (98-107); Estimated Glomerular Filt Rate > 60.0 mL/min (>60); Globulin 3.2 g/dL (1.7-4.1); Glucose 115 mg/dL (70-100); HEMOLYSIS < 15 (0-50); Lipase 169 U/L (23-300); Potassium 4.2 mmol/L (3.4-5.1); Sodium 142 mmol/L (137-145)
[2019-01-05 14:23] VITALS: BP 130/80; PULSE 85; RESP 20; O2SAT 99
[2019-01-05 15:04] VITALS: BP 129/81; PULSE 81; RESP 17; O2SAT 97
[2019-01-05] MEDS: KETOROLAC 60 MG/2 ML VIAL 30 MG IV (15:34)
[2019-01-05 15:59] VITALS: BP 115/73; PULSE 70
[2019-01-05] MEDS: PROCHLORPERAZINE 10 MG/2 ML VIAL IV (15:59)
[2019-01-05] MEDS: HYDROMORPHONE 1 MG INJ IV (16:00)
[2019-01-05 16:29] VITALS: BP 119/78; PULSE 74; RESP 14; O2SAT 96
== END 2019-01-05 16:30 | disposition home or self-care (01) ==
PROVIDERS: Emergency Provider Emergency Medicine; PCP Student in an Organized Health Care Education/Training Program
DX: R10.84 Generalized abdominal pain (principal)
CPT/HCPCS: 36591; 74177; 80053; 81003; 83690; 85025; 96361; 96374; 96375; 96376; 99283; 99285; J0780; J1170; J1885; Q9967

== ENCOUNTER → 2019-05-30 12:21 | Outpatient (CLI) | payer MEDICARE, MEDICAID, SELFPAY ==
--- NOTE | 2019-05-30 | DI.MRI.S_ITS ---
PROCEDURE: MR LUMBAR SPINE WO CON INDICATIONS: Radiculopathy, lumbar region TECHNIQUE: Noncontrast sagittal T1 spin echo and T2 fast echo, sagittal STIR, axial T1 and T2 fast spin echo through the lumbar spine. In cases with scoliosis, additional coronal T2 fast spin echo may be performed. COMPARISON: [facility], MR, MR LUMBAR SPINE WO CON, 12/26/2018, 10:56. FINDINGS: Image quality: Excellent. Alignment and Curvature: There is normal bony alignment. Bone Marrow: Marrow is of normal overall signal. No acute vertebral body compression fractures. Spinal Cord: Conus medullaris terminates at the T12 level. Visualized cord demonstrates normal signal and size. Paraspinous Soft Tissues: No paravertebral masses. L1-L2: There is moderate disc desiccation and height loss. The extent of disc desiccation is slightly increased when compared with the prior MRI dated 12/26/18. There is a small focal posterior high intensity zone. No canal stenosis. Mild facet ligamentum flavum hypertrophy. No neural foraminal stenosis. L2-L3: Mild facet ligamentum flavum hypertrophy. No canal stenosis or neuroforaminal narrowing. L3-L4: Mild facet ligamentum flavum hypertrophy. No canal stenosis or neuroforaminal stenosis. L4-L5: Mild disc desiccation and height loss similar in extent to the prior study. Central broad-based disc bulge is present with moderate facet and ligamentum flavum hypertrophy. There is resultant mild canal stenosis. Previously visualized posterior annular tear is less conspicuous on the prior study but likely still present. There is mild epidural lipomatosis. No neuroforaminal stenosis. L5-S1: Mild disc desiccation and height loss. Posterior broad-based disc bulge. Moderate facet ligamentum flavum hypertrophy. No canal stenosis. Mild bilateral neuroforaminal narrowing. These findings are unchanged. IMPRESSION: 1. Slightly increased disc desiccation and height loss of L1-L2 when compared with the prior MRI dated 12/26/18. 2. Unchanged posterior annulus tear at L1-L2 and L4-L5. 3. Mild canal stenosis redemonstrated at L4-5 unchanged from the prior study. No new canal stenosis or significant foraminal stenosis. Dictated by: Erma Jewell M.D. on 05/31/2019 at 9:34 Approved by: Erma Jewell M.D. on 05/31/2019 at 9:44
== END ==
PROVIDERS: PCP Family Medicine; Referring Provider Orthopaedic Surgery; Visit Provider Orthopaedic Surgery
DX: M51.16 Intervertebral disc disorders with radiculopathy, lumbar region (principal); M51.17 Intervertebral disc disorders with radiculopathy, lumbosacral region; M48.061 Spinal stenosis, lumbar region without neurogenic claudication
CPT/HCPCS: 72148

== ENCOUNTER 2019-06-10 09:39 | Emergency (ER) | payer MEDICARE, MEDICAID, SELFPAY ==
[2019-06-10] VITALS (7 sets, daily range): BP systolic 93–122; BP diastolic 59–74; PULSE 63–105; RESP 15–16; TEMP 36.8; O2SAT 98–99; BMI 25.8
--- NOTE | 2019-06-10 10:58 | PC.NURSE ---
pt upset, due to long wait 1 hour and 20 minutes pt here due to right hip pain, radiating pain right lateral leg, usually stops at the knee, now down to the ankle. MRI done ,waiting for result. requesting pain medication, states, takes vicodin last dose , was friday. denies bowel/bladder issue.
--- NOTE | 2019-06-10 11:08 | DI.RAD.S_ITS ---
PROCEDURE: XR HIP W PEL IF DONE RT 2V INDICATIONS: hip pain post fall TECHNIQUE: AP pelvis with lateral view(s) of the right hip(s). COMPARISON: [facility], CR, XR HIP W PEL IF DONE NOEL 3TO4V, 12/26/2018, 11:14. FINDINGS: Bones: No fractures or dislocations. Pelvic ring appears intact. No suspicious bony lesions. Soft tissues: The visualized bowel gas pattern is normal. No suspicious soft tissue calcifications. IMPRESSION: No evidence acute bony abnormality of the pelvis and right hip. If clinical suspicion and/or symptoms persist, further assessment with repeat plain films, or advanced imaging (e.g., CT, MRI, or bone scan) may be helpful for further assessment. Dictated by: Jeremy Sanders M.D. on 06/10/2019 at 11:40 Approved by: Jeremy Sanders M.D. on 06/10/2019 at 11:41
[2019-06-10] MEDS: THIAMINE 200 MG/2 ML VIAL 100 MG IM (11:28)
[2019-06-10] MEDS: OXYCODONE IR 5 MG TABLET PO (11:29)
--- NOTE | 2019-06-10 11:30 | ED.LOWEXIN ---
HPI - Extremity Injury (Lower) <Santa GonzalesDONAVON - Last Filed: 06/10/19 22:17> General Chief Complaint: Extremity Injury, Lower Stated Complaint: pain in right hip going down leg Time Seen by Provider: 06/10/19 10:56 Source: patient Mode of arrival: Ambulatory Limitations: no limitations History of Present Illness HPI Narrative: 53yo history of alcoholism, presents to the emergency department complaining of increasing right hip pain. He states he has had ongoing right hip pain for over the past few years but lately it has increased. He states about 2 weeks ago he had an MRI which he has not had the results of but is being seen by his primary care provider. Patient states he was recently in rehabilitation for alcoholism last week. Patient states has had worsening right hip pain since rehabilitation and states he has had an increase in falls since rehabilitation. He believes this is due to increasing right hip pain, patient reports the pain usually is in his hip and radiates down his knee and now the pain is radiating past his knee. Patient denies any dizziness or vertigo. He denies chest pain, shortness of breath, headaches, abdominal pain vision changes, nausea, vomiting, diarrhea, or other concerns. He denies hitting his head when he fell. He states he fell a few times last week from tripping over his feet and the sidewalk, reports he fell onto his right hip and his pain has been worse since then. He has been taking Vicodin without significant pain relief. Patient states he has an appointment next week for follow-up with but is hip pain. Related Data Home Medications Medication Instructions Recorded Confirmed quetiapine 50 mg PO BEDTIME 01/05/19 01/05/19 tramadol 50 mg PO BID PRN 01/05/19 Previous Rx's Medication Instructions Recorded cyclobenzaprine 10 mg tablet 10 mg PO TID PRN #90 tab 11/13/18 meloxicam 7.5 mg tablet 15 mg PO DAILY #180 tab MDD 15 mg 12/14/18 pregabalin 25 mg capsule 25 mg PO TID #90 cap 12/14/18 hydrocodone-acetaminophen [Northrop] 1 tab PO Q4-6H PRN #7 tab 12/26/18 hydrocodone-acetaminophen 1 tab PO Q6H PRN #10 tab 01/05/19 ondansetron 4 mg PO Q6-8H PRN #10 tab 01/05/19 oxycodone 5 mg PO BID PRN #10 tab 06/10/19 Allergies Allergy/AdvReac Type Severity Reaction Status Date / Time Penicillins Allergy Severe Anaphylaxis Verified 06/10/19 10:01 Review of Systems <WILLIS MoreiraP - Last Filed: 06/10/19 22:17> Review of Systems Narrative: REVIEW OF SYSTEMS: GENERAL: Denies fever or chills. HENT: No head trauma. EYES: No double vision or vision loss. CARDIOVASCULAR: No chest pain or syncope. RESPIRATORY: No shortness of breath or cough. GASTROINTESTINAL: No nausea, vomiting, diarrhea, or constipation. GENITOURINARY: No flank pain or dysuria. MUSCULOSKELETAL: Complains of right hip pain, see HPI. INTEGUMENTARY: No rash, lesions, or pruritus. NEURO: No numbness, tingling. PSYCH: No behavior or mood changes. Patient History <Santa Gonzales INTERNATIONAL LOGISTICS COORDINATOR - Last Filed: 06/10/19 22:17> Social History Smoking Status: Current every day smoker Smoking Status: Current every day smoker alcohol intake frequency: holidays/special occasions only Substance Use Type: does not use Exam <WILLIS MoreiraP - Last Filed: 06/10/19 22:17> Initial Vital Signs Initial Vital Signs: Vital Signs Pulse Rate 73 06/10/19 10:00 Respiratory Rate 16 06/10/19 10:00 Blood Pressure 102/62 06/10/19 10:00 Pulse Oximetry 98 06/10/19 10:00 PHYSICAL EXAMINATION: GENERAL: Well groomed, alert, and cooperative. Answers questions promptly and appropriately. Vital signs noted. HENT: Normocephalic, atraumatic. Ear canals patent. Oral mucosa is pink and moist. EYES: PERRLA, EOMIs, No opthalmopelgia, conjunctiva pink, sclera white, no periorbital swelling. CHEST: Normal to inspection and without deformities. CARDIOVASCULAR: S1 and S2 sounds normal. Regular rate and rhythm, no murmurs, clicks, or bruits. No pedal edema. RESPIRATORY: Normal respiratory rate, trachea midline, airway patent. No stridor, nasal flaring or accessory muscle use. Lungs are clear in all byrd without wheeze, rhonchi, or crackles. GASTROINTESTINAL: Bowel sounds normoactive. Abdomen is soft and non-tender. No organomegaly, no bulge. MUSCULOSKELETAL: Normal gait and coordination, patient was able to ambulate over 30 ft without stumbling or ataxia. Equal tone and mass bilaterally. EXTREMITIES: CMS intact. Moves all extremities. SKIN: Warm, dry, soft, appropriate color for ethnicity. No lesions, rashes, or wounds. NEURO: Alert and Oriented X 3. Good coordination. No sensory deficits. Patient ambulated without ataxia. PSYCH: Patient was originally agitated due to week, remains calm and cooperative during emergency department stay. <Shane Cali MD - Last Filed: 06/11/19 07:42> Initial Vital Signs Initial Vital Signs: Vital Signs Pulse Rate 73 06/10/19 10:00 Respiratory Rate 16 06/10/19 10:00 Blood Pressure 102/62 06/10/19 10:00 Pulse Oximetry 98 06/10/19 10:00 Course <DONAVON Moreira - Last Filed: 06/10/19 22:17> Orders Ordered: Discontinued Medications Oxycodone HCl (Percolone) 5 mg PO NOW ONE Stop: 06/10/19 11:23 Last Admin: 06/10/19 11:29 Dose: 5 mg Documented by: THAIS Thiamine HCl (Vitamin B-1) 100 mg IM NOW ONE Stop: 06/10/19 11:17 Last Admin: 06/10/19 11:28 Dose: 100 mg Documented by: THAIS Consultations Consultation #1: Patient staffed with Dr. Cali Vital Signs Vital signs: Vital Signs - 8 hr 06/10/19 10:00 06/10/19 10:01 06/10/19 10:30 Temperature 98.2 F Pulse Rate 73 72 82 Pulse Rate [Orthostatic Lying] Pulse Rate [Orthostatic Sitting] Pulse Rate [Orthostatic Standing] Respiratory Rate 16 15 16 Blood Pressure 103/60 Blood Pressure [Left Arm] 102/62 106/62 Blood Pressure [Orthostatic Lying] Blood Pressure [Orthostatic Sitting] Blood Pressure [Orthostatic Standing] Pulse Oximetry 98 99 99 06/10/19 12:23 06/10/19 12:30 06/10/19 12:49 Temperature Pulse Rate 66 105 H Pulse Rate [Orthostatic Lying] 63 Pulse Rate [Orthostatic Sitting] 78 Pulse Rate [Orthostatic Standing] 100 H Respiratory Rate 16 16 Blood Pressure Blood Pressure [Left Arm] 111/65 93/59 L Blood Pressure [Orthostatic Lying] 115/68 Blood Pressure [Orthostatic Sitting] 106/62 Blood Pressure [Orthostatic Standing] 93/59 L Pulse Oximetry 98 98 06/10/19 13:02 Temperature Pulse Rate 74 Pulse Rate [Orthostatic Lying] Pulse Rate [Orthostatic Sitting] Pulse Rate [Orthostatic Standing] Respiratory Rate 16 Blood Pressure Blood Pressure [Left Arm] 122/74 Blood Pressure [Orthostatic Lying] Blood Pressure [Orthostatic Sitting] Blood Pressure [Orthostatic Standing] Pulse Oximetry 98 <Shane Cali MD - Last Filed: 06/11/19 07:42> Orders Ordered: Discontinued Medications Oxycodone HCl (Percolone) 5 mg PO NOW ONE Stop: 06/10/19 11:23 Last Admin: 06/10/19 11:29 Dose: 5 mg Documented by: THAIS Thiamine HCl (Vitamin B-1) 100 mg IM NOW ONE Stop: 06/10/19 11:17 Last Admin: 06/10/19 11:28 Dose: 100 mg Documented by: THAIS Vital Signs Vital signs: Vital Signs - 8 hr 06/10/19 10:00 06/10/19 10:01 06/10/19 10:30 Temperature 98.2 F Pulse Rate 73 72 82 Pulse Rate [Orthostatic Lying] Pulse Rate [Orthostatic Sitting] Pulse Rate [Orthostatic Standing] Respiratory Rate 16 15 16 Blood Pressure 103/60 Blood Pressure [Left Arm] 102/62 106/62 Blood Pressure [Orthostatic Lying] Blood Pressure [Orthostatic Sitting] Blood Pressure [Orthostatic Standing] Pulse Oximetry 98 99 99 06/10/19 12:23 06/10/19 12:30 06/10/19 12:49 Temperature Pulse Rate 66 105 H Pulse Rate [Orthostatic Lying] 63 Pulse Rate [Orthostatic Sitting] 78 Pulse Rate [Orthostatic Standing] 100 H Respiratory Rate 16 16 Blood Pressure Blood Pressure [Left Arm] 111/65 93/59 L Blood Pressure [Orthostatic Lying] 115/68 Blood Pressure [Orthostatic Sitting] 106/62 Blood Pressure [Orthostatic Standing] 93/59 L Pulse Oximetry 98 98 06/10/19 13:02 Temperature Pulse Rate 74 Pulse Rate [Orthostatic Lying] Pulse Rate [Orthostatic Sitting] Pulse Rate [Orthostatic Standing] Respiratory Rate 16 Blood Pressure Blood Pressure [Left Arm] 122/74 Blood Pressure [Orthostatic Lying] Blood Pressure [Orthostatic Sitting] Blood Pressure [Orthostatic Standing] Pulse Oximetry 98 MDM - Extremity Injury (Lower) <Santa Gonzales INTERNATIONAL LOGISTICS COORDINATOR - Last Filed: 06/10/19 22:17> Medical Records Attestation: I reviewed the patient's medical records. Lab Data Attestation: I reviewed the patient's lab results. Result diagrams: 06/10/19 11:43 06/10/19 11:43 Labs: Lab Results 06/10/19 06/10/19 06/10/19 Range/Units 11:43 11:43 11:43 WBC 6.5 (4.5-11.0) X10^3/uL RBC 3.86 L (4.5-5.9) X10^6/uL Hgb 12.9 L (13.5-17.5) g/dL Hct 38.1 L (41-53) % MCV 98.9 (80-100) fL MCH 33.6 (26-34) PG MCHC 33.9 (30-36) % RDW 13.6 (11.6-14.8) % Plt Count 245 (150-400) X10^3/uL Neut % (Auto) 67.5 (50-75) % Lymph % (Auto) 17.3 L (25-40) % Cloud % (Auto) 12.4 (3-14) % Eos % (Auto) 1.9 L (2-4) % Baso % (Auto) 0.9 (0-2) % Neut # (Auto) 4400 (8137-2436) /uL Lymph # (Auto) 1100 (5120-2006) /uL Cloud # (Auto) 800 (0-900) /uL Eos # (Auto) 100 (0-450) /uL Baso # (Auto) 100 (0-100) /uL Sodium 141 (137-145) mmol/L Potassium 4.0 (3.4-5.1) mmol/L Chloride 104 (98-107) mmol/L Carbon Dioxide 27 (22-32) mmol/L BUN 12 (9-20) mg/dL Creatinine 0.90 (0.66-1.25) mg/dL Estimated GFR > 60.0 (>60) mL/min BUN/Creatinine Ratio 13.3 (6-22) Glucose 104 H (70-100) mg/dL Calcium 9.3 (8.4-10.2) mg/dL Total Bilirubin 0.4 (0.2-1.3) mg/dL AST 32 (17-59) IU/L ALT 25 (<50) IU/L Alkaline Phosphatase 64 (38-126) U/L Troponin I < 0.012 (0.01-0.034) ng/mL Total Protein 7.1 (6.3-8.2) g/dL Albumin 4.0 (3.5-5.0) g/dL Globulin 3.1 (1.7-4.1) g/dL Albumin/Globulin Ratio 1.3 (1.0-2.8) Ethyl Alcohol < 10 ( - 10) mg/dL Imaging Data Extremity x-ray #1: Radiologist's Impression: [address] [address] XRay Report Signed Patient: Shane Antunez [facility]#: [id number] : 1965Acct:[id number] Age/Sex: 53 / MDate of Service: 06/10/19 Loc: ED Accession Number: [id number] Procedure: XR hip w pel if done RT 2V Ordering Provider: Santa Gonzales PROCEDURE: XR HIP W PEL IF DONE RT 2V INDICATIONS: hip pain post fall TECHNIQUE: AP pelvis with lateral view(s) of the right hip(s). COMPARISON: [facility] , XR HIP W PEL IF DONE NOEL 3TO4V, 12/26/2018, 11:14. FINDINGS: Bones: No fractures or dislocations. Pelvic ring appears intact. No suspicious bony lesions. Soft tissues: The visualized bowel gas pattern is normal. No suspicious soft tissue calcifications. IMPRESSION: No evidence acute bony abnormality of the pelvis and right hip. If clinical suspicion and/or symptoms persist, further assessment with repeat plain films, or advanced imaging (e.g., CT, MRI, or bone scan) may be helpful for further assessment. Dictated by: Jeremy Sanders M.D. on 06/10/2019 at 11:40 Approved by: Jeremy Sanders M.D. on 06/10/2019 at 11:41 ECG Data Interpretation: Normal sinus rhythm, rate 66, CT interval 162, QTC 383. No ST elevation or ST depression. No ectopy. No T-wave abnormality. EKG viewed by Dr. Cali per protocol. MDM Narrative Medical decision making narrative: 53-year-old male presents to the emergency department for increasing right hip pain after undergoing rehabilitation for alcoholism. I suspect pain is most likely due to pinched nerve versus sciatica versus increased lumbar herniation of discs. Previous MRI completed on 05/30/19 shows slightly increased disc to desiccation and height loss of L1-L2 compared to MRI on 12/26/18, unchanged posteriro annulus tear at L1-L2 and L4-L5, and mild canal stenosis redemonstrated at L4-5 unchanged from the prior study. . Less likely due to negative x-ray, patient's ability to bear weight on hip without extreme pain, and MRI showing disc degeneration, and the patient reporting this pain is a similar nature but increased in severity. Differential also includes Wernicke's encephalopathy due to alcoholism, however, patient reports taking the vitamins as directed by his rehab facility, he is alert and oriented, no ophthalmoplegia noted, and (no ataxia)--however, patient was given thiamine IM due to significant increased risk for this. Patient was able to ambulate without any difficulty after pain medication. Was alert and awake his entire emergency department stay and he remained hemodynamically stable. Less concern for cauda equina due lack of loss of bowel or bladder control, no saddle paresthesias, or no limb weakness. <Shane Cali MD - Last Filed: 06/11/19 07:42> Lab Data Labs: Lab Results 06/10/19 06/10/19 06/10/19 Range/Units 11:43 11:43 11:43 WBC 6.5 (4.5-11.0) X10^3/uL RBC 3.86 L (4.5-5.9) X10^6/uL Hgb 12.9 L (13.5-17.5) g/dL Hct 38.1 L (41-53) % MCV 98.9 (80-100) fL MCH 33.6 (26-34) PG MCHC 33.9 (30-36) % RDW 13.6 (11.6-14.8) % Plt Count 245 (150-400) X10^3/uL Neut % (Auto) 67.5 (50-75) % Lymph % (Auto) 17.3 L (25-40) % Cloud % (Auto) 12.4 (3-14) % Eos % (Auto) 1.9 L (2-4) % Baso % (Auto) 0.9 (0-2) % Neut # (Auto) 4400 (2346-4154) /uL Lymph # (Auto) 1100 (1447-2323) /uL Cloud # (Auto) 800 (0-900) /uL Eos # (Auto) 100 (0-450) /uL Baso # (Auto) 100 (0-100) /uL Sodium 141 (137-145) mmol/L Potassium 4.0 (3.4-5.1) mmol/L Chloride 104 (98-107) mmol/L Carbon Dioxide 27 (22-32) mmol/L BUN 12 (9-20) mg/dL Creatinine 0.90 (0.66-1.25) mg/dL Estimated GFR > 60.0 (>60) mL/min BUN/Creatinine Ratio 13.3 (6-22) Glucose 104 H (70-100) mg/dL Calcium 9.3 (8.4-10.2) mg/dL Total Bilirubin 0.4 (0.2-1.3) mg/dL AST 32 (17-59) IU/L ALT 25 (<50) IU/L Alkaline Phosphatase 64 (38-126) U/L Troponin I < 0.012 (0.01-0.034) ng/mL Total Protein 7.1 (6.3-8.2) g/dL Albumin 4.0 (3.5-5.0) g/dL Globulin 3.1 (1.7-4.1) g/dL Albumin/Globulin Ratio 1.3 (1.0-2.8) Ethyl Alcohol < 10 ( - 10) mg/dL Discharge Plan Departure Patient Disposition: Home Clinical Impression: Hip pain Qualifiers: Laterality: right Qualified Code(s): M25.551 - Pain in right hip Discharge Date/Time: 06/10/19 13:31 Instructions: DI for Hip Pain Activity Restrictions/Additional Instructions: Thank you for entrusting me with your care today. As discussed, your x-rays negative for any fractures. I suggest you continue taking your B vitamin complex and magnesium as instructed, increase fluid intake, follow-up with your primary care provider as scheduled next week. Please take naproxen for pain. I have prescribed you a few pills of a stronger pain medication to help with your pain over the next few days, this was sent to [facility] in [place]. You have been prescribed a narcotic medication, this medication can make you drowsy. Do not drive while using this medication or perform activities that require mental alertness. These medications can also make you constipated, please use [id number] docusate sodium as needed for constipation. Return emergency department for any new or worsening symptoms such as severe pain, syncope, vision changes, memory issues, chest pain, shortness of breath, severe abdominal pain, or other concerns. Prescriptions: New oxycodone 5 mg tablet 5 mg PO BID PRN (Reason: pain) Qty: 10 RF: 0 No Action meloxicam 7.5 mg tablet 15 mg PO DAILY MDD 15 mg Qty: 180 RF: 1 cyclobenzaprine 10 mg tablet 10 mg PO TID PRN (Reason: Back Pain) Qty: 90 RF: 2 tramadol 50 mg tablet 50 mg PO BID PRN (Reason: pain) RF: 0 quetiapine 50 mg tablet 50 mg PO BEDTIME RF: 0 hydrocodone-acetaminophen 5-325 mg tablet 1 tab PO Q6H PRN (Reason: pain) Qty: 10 RF: 0 ondansetron 4 mg tablet,disintegrating 4 mg PO Q6-8H PRN (Reason: nausea and vomiting) Qty: 10 RF: 0 hydrocodone-acetaminophen [Northrop] 5-325 mg tablet 1 tab PO Q4-6H PRN (Reason: pain) Qty: 7 RF: 0 pregabalin 25 mg capsule 25 mg PO TID Qty: 90 RF: 3 Referrals: Matt Roca MD [Primary Care Provider] -
[2019-06-10 11:53] LABS: Add Manual Diff / Slide Review NO; Basophils Absolute Auto 100 /uL (0-100); Basophils Percent Auto 0.9 % (0-2); Eosinophils Absolute Auto 100 /uL (0-450); Eosinophils Percent Auto 1.9 % (2-4); Hematocrit 38.1 % (41-53); Hemoglobin 12.9 g/dL (13.5-17.5); Lymphocytes Absolute Auto 1100 /uL (1100-4500); Lymphocytes Percent Auto 17.3 % (25-40); Mean Corpuscular HGB Conc 33.9 % (30-36); Mean Corpuscular Hemoglobin 33.6 PG (26-34); Mean Corpuscular Volume 98.9 fL (80-100); Monocytes Absolute Auto 800 /uL (0-900); Monocytes Percent Auto 12.4 % (3-14); Neutrophils Absolute Auto 4400 /uL (1500-7000); Neutrophils Percent Auto 67.5 % (50-75); Platelet Count 245 X10^3/uL (150-400); Red Blood Cell Count 3.86 X10^6/uL (4.5-5.9); Red Cell Distribution Width 13.6 % (11.6-14.8); White Blood Cell Count 6.5 X10^3/uL (4.5-11.0)
[2019-06-10 12:03] LABS: Alanine Aminotransferase 25 IU/L (<50); Albumin Globulin Ratio 1.3 (1.0-2.8); Alkaline Phosphatase 64 U/L (38-126); Aspartate Aminotransferase 32 IU/L (17-59); BUN Creatinine Ratio 13.3 (6-22); Bilirubin Total 0.4 mg/dL (0.2-1.3); Blood Urea Nitrogen 12 mg/dL (9-20); Calcium 9.3 mg/dL (8.4-10.2); Carbon Dioxide 27 mmol/L (22-32); Chloride 104 mmol/L (98-107); Estimated Glomerular Filt Rate > 60.0 mL/min (>60); Ethanol (ETOH) < 10 mg/dL; Globulin 3.1 g/dL (1.7-4.1); Glucose 104 mg/dL (70-100); HEMOLYSIS < 15 (0-50); Sodium 141 mmol/L (137-145); Total Protein 7.1 g/dL (6.3-8.2)
[2019-06-10 12:14] LABS: Troponin I < 0.012 ng/mL (0.01-0.034)
--- NOTE | 2019-06-10 13:03 | PC.NURSE ---
states, he has been taking so much pain medications and now he has a high tolerance. pt calm and cooperative with care.
== END 2019-06-10 13:31 | disposition home or self-care (01) ==
PROVIDERS: Emergency Provider Nurse Practitioner; PCP Family Medicine
DX: M25.551 Pain in right hip (principal)
CPT/HCPCS: 36415; 73502; 80053; 80320; 84484; 85025; 93005; 96372; 99284; 99285

== ENCOUNTER 2019-09-04 15:12 | Emergency (ER) | payer MEDICARE, MEDICAID, SELFPAY ==
[2019-09-04 15:22] VITALS: BP 123/76; PULSE 110; RESP 16; TEMP 37; O2SAT 97; BMI 25.5
[2019-09-04 15:42] LABS: Add Manual Diff / Slide Review NO; Basophils Absolute Auto 100 /uL (0-100); Basophils Percent Auto 1.9 % (0-2); Eosinophils Absolute Auto 100 /uL (0-450); Eosinophils Percent Auto 2.2 % (2-4); Hematocrit 39.7 % (41-53); Hemoglobin 13.5 g/dL (13.5-17.5); Lymphocytes Absolute Auto 1800 /uL (1100-4500); Lymphocytes Percent Auto 36.1 % (25-40); Mean Corpuscular HGB Conc 34.1 % (30-36); Mean Corpuscular Hemoglobin 31.5 PG (26-34); Mean Corpuscular Volume 92.4 fL (80-100); Monocytes Absolute Auto 400 /uL (0-900); Monocytes Percent Auto 7.7 % (3-14); Neutrophils Absolute Auto 2600 /uL (1500-7000); Neutrophils Percent Auto 52.1 % (50-75); Platelet Count 136 X10^3/uL (150-400); Red Blood Cell Count 4.29 X10^6/uL (4.5-5.9); Red Cell Distribution Width 16.6 % (11.6-14.8)
[2019-09-04 15:44] LABS: Bacteria Urine None Seen; RBC Urine None Seen (0-5/HPF)
[2019-09-04 15:47] LABS: Appearance Urine UA CLEAR; Bilirubin Urine UA NEGATIVE (NEGATIVE); Color Urine UA YELLOW; Glucose Urine UA NEGATIVE (Negative); Ketones Urine UA NEGATIVE (NEGATIVE); Leukocyte Esterase Urine UA NEGATIVE (NEGATIVE); Nitrite Urine UA NEGATIVE (Negative); Occult Blood Urine UA NEGATIVE (Negative); Protein Urine UA NEGATIVE (Negative); Specific Gravity Urine UA <=1.005 (1.000-1.035); Urobilinogen Urine UA 0.2 E.U./dL (0.2)
[2019-09-04 15:54] LABS: UR Morphine/Opiate cutoff 300 Negative (Negative); Ur Creatinine Normal (Normal); Ur Specific Gravity Normal (Normal); Urine Amphetamines Negative (Negative); Urine Barbiturates Negative (Negative); Urine Benzodiazepines Negative (Negative); Urine Cocaine Negative (Negative); Urine MDMA Negative (Negative); Urine Methadone Negative (Negative); Urine Methamphetamines Negative (Negative); Urine Oxycodone Negative (Negative); Urine Phencyclidine Negative (Negative); Urine Tetrahydrocannabinol Negative (Negative); Urine Tricyclic Antidepressant Negative (Negative); Urine pH Normal (Normal)
[2019-09-04 15:56] LABS: Culture Indicated Urine Cult Not Indicated; Squamous Epithelial Cell Urine 0-1 /HPF (0-5/HPF); WBC Urine 1-5/HPF (0-5/HPF)
[2019-09-04 16:01] LABS: Acetaminophen < 10 ug/mL (10-30); Alanine Aminotransferase 67 IU/L (<50); Albumin 4.5 g/dL (3.5-5.0); Albumin Globulin Ratio 1.3 (1.0-2.8); Alkaline Phosphatase 105 U/L (38-126); Aspartate Aminotransferase 194 IU/L (17-59); BUN Creatinine Ratio 8.6 (6-22); Bilirubin Total 0.4 mg/dL (0.2-1.3); Blood Urea Nitrogen 6 mg/dL (9-20); Calcium 9.3 mg/dL (8.4-10.2); Carbon Dioxide 24 mmol/L (22-32); Chloride 107 mmol/L (98-107); Estimated Glomerular Filt Rate > 60.0 mL/min (>60); Globulin 3.4 g/dL (1.7-4.1); Glucose 104 mg/dL (70-100); HEMOLYSIS < 15 (0-50); Potassium 4.1 mmol/L (3.4-5.1); Salicylate < 1.0 mg/dL (<20); Sodium 142 mmol/L (137-145); Total Protein 7.9 g/dL (6.3-8.2)
[2019-09-04 16:07] LABS: Ethanol (ETOH) 342 mg/dL
--- NOTE | 2019-09-04 17:39 | ED.ALCOHOL ---
HPI - Alcohol General Chief Complaint: Toxicology Problem Stated Complaint: wants detox Time Seen by Provider: 09/04/19 17:01 History of Present Illness HPI narrative: CC:Alcohol intoxication HPI: The patient is a 54-year-old male who presents to the emergency department for medical clearance to be transported by his friend Kleber Butcher to [facility] [place] [facility] rehab in [facility]. The patient states that his last drink was approximately 6 hours prior to admission. The patient complains of chronic back pain. He denies any recent fall or injury. He sees a pain specialist and has received 2 epidural steroid shots with minimal relief. He has had no recent fall or injury. The patient denies a history of diabetes mellitus hypertension stroke myocardial infarction congestive heart failure COPD. Admits to smoking cigarettes drinking alcohol but does not use any drugs and does not smoke marijuana. He denies any headache or change in vision at this time. Related Data Home Medications Medication Instructions Recorded Confirmed quetiapine 50 mg PO BEDTIME 01/05/19 01/05/19 tramadol 50 mg PO BID PRN 01/05/19 Previous Rx's Medication Instructions Recorded cyclobenzaprine 10 mg tablet 10 mg PO TID PRN #90 tab 11/13/18 meloxicam 7.5 mg tablet 15 mg PO DAILY #180 tab MDD 15 mg 12/14/18 pregabalin 25 mg capsule 25 mg PO TID #90 cap 12/14/18 hydrocodone-acetaminophen [[place]] 1 tab PO Q4-6H PRN #7 tab 12/26/18 hydrocodone-acetaminophen 1 tab PO Q6H PRN #10 tab 01/05/19 ondansetron 4 mg PO Q6-8H PRN #10 tab 01/05/19 oxycodone 5 mg PO BID PRN #10 tab 06/10/19 ibuprofen 600 mg PO QID PRN #20 tab 09/04/19 lorazepam [Ativan] 2 mg PO TID PRN #7 tab 09/04/19 Allergies Allergy/AdvReac Type Severity Reaction Status Date / Time Penicillins Allergy Severe Anaphylaxis Verified 06/10/19 10:01 Review of Systems Review of Systems Narrative: REVIEW OF SYSTEMS: CONSTITUTIONAL: No fever chills or sweats. NEUROLOGICAL: No headache numbness tingling paresthesias and seizures presents or paralysis. No seizures EENT: No sore throat her nosebleeds CARDIO-PULMONARY: Denies any chest pain shortness of breath cough GASTROINTESTINAL: No abdominal pain nausea vomiting. No diarrhea GENITAL URINARY: No urinary symptoms. MUSCULOSKELETAL/ RHEUMATOLOGICAL: The patient has chronic low back pain for which he receives epidural injections. DERMATOLOGICAL: No skin rash bruising noted Patient History Medical History Chronic back pain (Chronic) Degenerative disc disease (Chronic) Smoker (Chronic) Surgical History History of colostomy reversal (Resolved) Status post cholecystectomy (Resolved) Status post exploratory laparotomy (Resolved) Status post rotator cuff repair (Resolved) Family History Other No pertinent family history in first degree relatives Social History Smoking Status: Current every day smoker Smoking Status: Current every day smoker alcohol intake frequency: holidays/special occasions only Substance Use Type: does not use Exam Narrative Exam Narrative: PHYSICAL EXAM: CONSTITUTIONAL: Awake, Alert, Oriented, Coherent, Cooperative in NAD. Clinically Sober HEAD: AT/NC EENT: PERRL, FROM of eyes, no discharge, no nystagmus MOUTH: Wearing a mask NECK: Supple, no obvious JVD, Trachea is midline without stridor, no palpable LN. SPINE: Palpationof the cervical, Thoracic, or Sacral spine reveals no gross deformity or tenderness. No CVA tenderness. The patient is tender to palpation over his lower lumbar spine and right SI joint and sciatic notch. THORAX: No deformity, retractions, chest wall tenderness. LUNGS: Clear, symmetrical breath sounds without respiratory distress. HEART: Normal heart tones, regular rhythm and rate without murmur. ABDOMEN: Soft, non-tender, normal bowel sounds without guarding, rebound, rigidity or palpable mass. EXTREMITIES: No edema, deformity, tenderness or cyanosis. SKIN: No rash, bruising, petechiae or purpura. NEURO: Awake, alert, oriented, conversive, cranial nerves II-XII are symmetrical , moves all 4 extremities and is ambulatory. Initial Vital Signs Initial Vital Signs: Vital Signs Temperature 98.6 F 09/04/19 15:22 Pulse Rate 110 H 09/04/19 15:22 Respiratory Rate 16 09/04/19 15:22 Blood Pressure 123/76 09/04/19 15:22 Pulse Oximetry 97 09/04/19 15:22 Course Course Course Narrative: 1739: The patient is clinically sober he is ambulatory cranial nerves 2-12 were within normal limits he is speaking normally. The patient is a chronic alcoholic. The patient was medically cleared to go to [facility] [place]. Orders Ordered: ED Orders 09/04/19 15:28 Urinalysis and Microscopic Stat Urine Drug Screen, Rapid Stat 09/04/19 15:35 Acetaminophen Stat Complete Blood Count AUTO DIFF Stat Comprehensive Metabolic Panel Stat Ethanol (ETOH) Stat Salicylate Stat Discontinued Medications Ketorolac Tromethamine (Toradol) 30 mg IM NOW ONE Stop: 09/04/19 17:41 Last Admin: 09/04/19 17:54 Dose: 30 mg Documented by: YASMANI Lorazepam (Ativan) 4 mg PO NOW ONE Stop: 09/04/19 17:50 Last Admin: 09/04/19 18:24 Dose: 4 mg Documented by: YASMANI Lorazepam (Ativan) 1 mg PO NOW ONE Stop: 09/04/19 18:15 Last Admin: 09/04/19 18:23 Dose: 1 mg Documented by: YASMANI Vital Signs Vital signs: Vital Signs - 8 hr 09/04/19 15:22 09/04/19 18:28 Temperature 98.6 F 98.4 F Pulse Rate 110 H 90 Respiratory Rate 16 16 Blood Pressure 123/76 Blood Pressure [Left Arm] 162/78 H Pulse Oximetry 97 98 MDM - Alcohol Medical Records Attestation: I reviewed the patient's medical records. Lab Data Attestation: I reviewed the patient's lab results. Result diagrams: 09/04/19 15:35 09/04/19 15:35 Labs: Lab Results 09/04/19 09/04/19 09/04/19 Range/Units 15:28 15:28 15:35 WBC 5.0 (4.5-11.0) X10^3/uL RBC 4.29 L (4.5-5.9) X10^6/uL Hgb 13.5 (13.5-17.5) g/dL Hct 39.7 L (41-53) % MCV 92.4 (80-100) fL MCH 31.5 (26-34) PG MCHC 34.1 (30-36) % RDW 16.6 H (11.6-14.8) % Plt Count 136 L (150-400) X10^3/uL Neut % (Auto) 52.1 (50-75) % Lymph % (Auto) 36.1 (25-40) % [place] % (Auto) 7.7 (3-14) % Eos % (Auto) 2.2 (2-4) % Baso % (Auto) 1.9 (0-2) % Neut # (Auto) 2600 (4095-6867) /uL Lymph # (Auto) 1800 (4879-8111) /uL Cocke # (Auto) 400 (0-900) /uL Eos # (Auto) 100 (0-450) /uL Baso # (Auto) 100 (0-100) /uL Sodium (137-145) mmol/L Potassium (3.4-5.1) mmol/L Chloride (98-107) mmol/L Carbon Dioxide (22-32) mmol/L BUN (9-20) mg/dL Creatinine (0.66-1.25) mg/dL Estimated GFR (>60) mL/min BUN/Creatinine Ratio (6-22) Glucose (70-100) mg/dL Calcium (8.4-10.2) mg/dL Total Bilirubin (0.2-1.3) mg/dL AST (17-59) IU/L ALT (<50) IU/L Alkaline Phosphatase (38-126) U/L Total Protein (6.3-8.2) g/dL Albumin (3.5-5.0) g/dL Globulin (1.7-4.1) g/dL Albumin/Globulin Ratio (1.0-2.8) TSH Free T4 Urine Color Yellow Urine Appearance Clear Urine pH 6.0 (4.5-8.0) Ur Specific [place] <=1.005 (1.000-1.035) Urine Protein Negative (Negative) Urine Glucose (UA) Negative (Negative) g/dL Urine Ketones Negative (NEGATIVE) Urine Occult Blood Negative (Negative) Urine Nitrate Negative (Negative) Urine Bilirubin Negative (NEGATIVE) Urine Urobilinogen 0.2 (0.2) E.U./dL Ur Leukocyte Esterase Negative (NEGATIVE) Urine RBC None seen (0-5/HPF) Urine WBC 1-5/hpf (0-5/HPF) Ur Squamous Epith Cells 0-1 /hpf (0-5/HPF) Urine Bacteria None seen (None) Ur Culture Indicated? Cult not indicated Salicylates (<20) mg/dL U Opiates 300ng/mL cut Negative (Negative) Ur Oxycodone Screen Negative (Negative) Urine Methadone Screen Negative (Negative) Acetaminophen (10-30) ug/mL Ur Barbiturates Screen Negative (Negative) U Tricyclic Antidepress Negative (Negative) Ur Phencyclidine Scrn Negative (Negative) Ur Amphetamines Screen Negative (Negative) U Methamphetamines Scrn Negative (Negative) Ur MDMA Scrn (Ecstasy) Negative (Negative) U Benzodiazepines Scrn Negative (Negative) Urine Cocaine Screen Negative (Negative) U Marijuana (THC) Screen Negative (Negative) Ethyl Alcohol ( - 10) mg/dL 09/04/19 09/04/19 Range/Units 15:35 15:35 WBC (4.5-11.0) X10^3/uL RBC (4.5-5.9) X10^6/uL Hgb (13.5-17.5) g/dL Hct (41-53) % MCV (80-100) fL MCH (26-34) PG MCHC (30-36) % RDW (11.6-14.8) % Plt Count (150-400) X10^3/uL Neut % (Auto) (50-75) % Lymph % (Auto) (25-40) % Cocke % (Auto) (3-14) % Eos % (Auto) (2-4) % Baso % (Auto) (0-2) % Neut # (Auto) (3985-8977) /uL Lymph # (Auto) (6140-7843) /uL Cocke # (Auto) (0-900) /uL Eos # (Auto) (0-450) /uL Baso # (Auto) (0-100) /uL Sodium 142 (137-145) mmol/L Potassium 4.1 (3.4-5.1) mmol/L Chloride 107 (98-107) mmol/L Carbon Dioxide 24 (22-32) mmol/L BUN 6 L (9-20) mg/dL Creatinine 0.70 (0.66-1.25) mg/dL Estimated GFR > 60.0 (>60) mL/min BUN/Creatinine Ratio 8.6 (6-22) Glucose 104 H (70-100) mg/dL Calcium 9.3 (8.4-10.2) mg/dL Total Bilirubin 0.4 (0.2-1.3) mg/dL AST 194 H (17-59) IU/L ALT 67 H (<50) IU/L Alkaline Phosphatase 105 (38-126) U/L Total Protein 7.9 (6.3-8.2) g/dL Albumin 4.5 (3.5-5.0) g/dL Globulin 3.4 (1.7-4.1) g/dL Albumin/Globulin Ratio 1.3 (1.0-2.8) TSH Cancelled Free T4 Cancelled Urine Color Urine Appearance Urine pH (4.5-8.0) Ur Specific [place] (1.000-1.035) Urine Protein (Negative) Urine Glucose (UA) (Negative) g/dL Urine Ketones (NEGATIVE) Urine Occult Blood (Negative) Urine Nitrate (Negative) Urine Bilirubin (NEGATIVE) Urine Urobilinogen (0.2) E.U./dL Ur Leukocyte Esterase (NEGATIVE) Urine RBC (0-5/HPF) Urine WBC (0-5/HPF) Ur Squamous Epith Cells (0-5/HPF) Urine Bacteria (None) Ur Culture Indicated? Salicylates < 1.0 (<20) mg/dL U Opiates 300ng/mL cut (Negative) Ur Oxycodone Screen (Negative) Urine Methadone Screen (Negative) Acetaminophen < 10 L (10-30) ug/mL Ur Barbiturates Screen (Negative) U Tricyclic Antidepress (Negative) Ur Phencyclidine Scrn (Negative) Ur Amphetamines Screen (Negative) U Methamphetamines Scrn (Negative) Ur MDMA Scrn (Ecstasy) (Negative) U Benzodiazepines Scrn (Negative) Urine Cocaine Screen (Negative) U Marijuana (THC) Screen (Negative) Ethyl Alcohol 342 H ( - 10) mg/dL Discharge Plan Departure Patient Disposition: Home Clinical Impression: Alcoholic intoxication Qualifiers: Complication of substance-induced condition: with unspecified complication Qualified Code(s): F10.929 - Alcohol use, unspecified with intoxication, unspecified Chronic low back pain Qualifiers: Back pain laterality: right Sciatica presence: with sciatica Sciatica laterality: sciatica of right side Qualified Code(s): M54.41 - Lumbago with sciatica, right side Sciatica Qualifiers: Laterality: right Qualified Code(s): M54.31 - Sciatica, right side Discharge Date/Time: 09/04/19 18:32 Instructions: DI for Low Back Pain, DI for Sciatica, DI for Alcohol Abuse Activity Restrictions/Additional Instructions: 1. For pain and discomfort take ibuprofen every 8 hours. 2. [facility] directly [facility] Prescriptions: New ibuprofen 600 mg tablet 600 mg PO QID PRN (Reason: pain) Qty: 20 RF: 0 lorazepam [Ativan] 2 mg tablet 2 mg PO TID PRN (Reason: alcohol withdrawal) Qty: 7 RF: 0 No Action meloxicam 7.5 mg tablet 15 mg PO DAILY MDD 15 mg Qty: 180 RF: 1 cyclobenzaprine 10 mg tablet 10 mg PO TID PRN (Reason: Back Pain) Qty: 90 RF: 2 tramadol 50 mg tablet 50 mg PO BID PRN (Reason: pain) RF: 0 quetiapine 50 mg tablet 50 mg PO BEDTIME RF: 0 hydrocodone-acetaminophen 5-325 mg tablet 1 tab PO Q6H PRN (Reason: pain) Qty: 10 RF: 0 ondansetron 4 mg tablet,disintegrating 4 mg PO Q6-8H PRN (Reason: nausea and vomiting) Qty: 10 RF: 0 hydrocodone-acetaminophen [[place]] 5-325 mg tablet 1 tab PO Q4-6H PRN (Reason: pain) Qty: 7 RF: 0 oxycodone 5 mg tablet 5 mg PO BID PRN (Reason: pain) Qty: 10 RF: 0 pregabalin 25 mg capsule 25 mg PO TID Qty: 90 RF: 3 Referrals: Matt Roca MD [Primary Care Provider] - Stand Alone Forms: Work Release Note
[2019-09-04] MEDS: KETOROLAC 60 MG/2 ML VIAL 30 MG IM (17:54)
[2019-09-04] MEDS: LORazepam 0.5 MG TABLET 1 MG PO (18:23)
[2019-09-04] MEDS: LORazepam 0.5 MG TABLET 4 MG PO (18:24)
[2019-09-04 18:28] VITALS: BP 162/78; PULSE 90; RESP 16; TEMP 36.9; O2SAT 98
== END 2019-09-04 18:32 | disposition home or self-care (01) ==
PROVIDERS: Emergency Provider Emergency Medicine; PCP Family Medicine
DX: F10.129 Alcohol abuse with intoxication, unspecified (principal); Y90.8 Blood alcohol level of 240 mg/100 ml or more; M54.41 Lumbago with sciatica, right side
CPT/HCPCS: 36415; 80053; 80305; 80320; 80329; 81001; 85025; 96372; 99283; 99284; G0480; J1885

== ENCOUNTER → 2020-05-17 07:00 | Outpatient (CLI) | payer MEDICARE, MEDICAID, SELFPAY ==
--- NOTE | 2020-05-17 07:01 | DI.RAD.S_ITS ---
PROCEDURE: XR LUMBAR SPINE MIN 4V INDICATIONS: UPDATE IMAGING TECHNIQUE: 5 views of the lumbar spine were acquired. COMPARISON: [facility], CR, XR LUMBAR SPINE 2-3V, 12/26/2018, 11:12. FINDINGS: Bones: 5 nonrib-bearing vertebrae are present. There is normal bony alignment. No vertebral body compression fractures. No suspicious bony lesions. Note is made of mild facet osteoarthritis at L4-5 and mild to moderate such degenerative change at L5-S1. Soft tissues: Overlying bowel gas pattern is normal. No suspicious soft tissue calcifications. Surgical clips indicate prior cholecystectomy. Oblique images: No pars defects. 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 No subluxation is associated. Dictated by: Pedro Mcdaniel M.D. on 05/17/2020 at 9:19 Approved by: Pedro Mcdaniel M.D. on 05/17/2020 at 9:20
== END ==
PROVIDERS: PCP Internal Medicine; Referring Provider Physical Medicine & Rehabilitation; Visit Provider Physical Medicine & Rehabilitation
DX: M54.5 Low back pain (principal); M47.26 Other spondylosis with radiculopathy, lumbar region; M47.27 Other spondylosis with radiculopathy, lumbosacral region; M21.371 Foot drop, right foot; R26.81 Unsteadiness on feet
CPT/HCPCS: 72110; 99214

== ENCOUNTER → 2020-06-06 10:08 | Outpatient (CLI) | payer MEDICARE, MEDICAID, SELFPAY ==
[2020-06-06 12:49] LABS: COVID19 -Nasal RAPID Negative (Negative)
== END ==
PROVIDERS: PCP Internal Medicine; Visit Provider Physical Medicine & Rehabilitation
DX: Z20.822 Contact with and (suspected) exposure to COVID-19 (principal)
CPT/HCPCS: 87635; C9803

== ENCOUNTER 2020-06-08 14:54 | Outpatient (CLI) | payer MEDICARE, MEDICAID, SELFPAY ==
[2020-06-08] VITALS (9 sets, daily range): BP systolic 114–159; BP diastolic 61–90; PULSE 62–79; RESP 14–20; TEMP 36.6; O2SAT 99–100
--- NOTE | 2020-06-08 14:57 | DI.RAD.S_ITS ---
PROCEDURE: PAIN L/S TRANSFORAMINAL INJECT INDICATIONS: SPONDYLOSIS COMPARISON: [facility], CR, XR LUMBAR SPINE MIN 4V, 05/17/2020, 7:02. FINDINGS: Fluoroscopic spot filming was performed to verify placement of a spinal needle at the L4-L5 level, as labeled on the films. Appropriate location of the needle tip was confirmed by injection of iodinated contrast. IMPRESSION: Intraprocedural examination within normal limits. Dictated by: Patel Machado M.D. on 06/08/2020 at 15:31 Approved by: Patel Machado M.D. on 06/08/2020 at 15:31
[2020-06-08] MEDS: fentaNYL 100 MCG/2 ML INJ 50 MCG IV (15:35)
[2020-06-08] MEDS: BUPIVACAINE 0.25% (PF) VIAL 2 ML INJ (15:38)
[2020-06-08] MEDS: MIDAZOLAM 5 MG/5 ML VIAL IV (15:38)
[2020-06-08] MEDS: IOPAMIDOL 15 ML VIAL 3 ML INJ (15:38)
[2020-06-08] MEDS: BETAMETHASONE 30 MG/5 ML MDV 6 MG INJ (15:39)
[2020-06-08] MEDS: DEXAMETHASONE 10 MG/ML VIAL 20 MG INJ (15:39)
--- NOTE | 2020-06-08 15:47 | P.PCN_ITS ---
Date/Time/Diagnoses Date of procedure: 06/08/20 Time of procedure: 15:48 Pre-procedure diagnosis: 1. FORAMINAL STENOSIS WITH LE SYMPTOMS Post-procedure diagnosis: same Procedure Notes Procedure: 1. FLUOROSCOPICALLY GUIDED CONTRAST CONTROLLED TRANSFORAMINAL EPIDURAL STEROID INJECTION - RIGHT L4/5 TFESI Indications: Shane is referred by Dr. Escalera for treatment of Foraminal Stenosis with Right LE Symptoms Physician: Garrett Corral Total Fluoroscopy time (seconds): 8 Total sedation minutes: 9 Complications: none Procedure in detail & Post-procedure care: FINDINGS Foraminal Nerve Root Compression secondary to disc disease and facet hypertrophy DESCRIPTION OF PROCEDURE Following review of allergy and review of potential side effects and complications, including, but not necessarily limited to, infection, allergic reaction, local tissue breakdown, stroke, temporary or permanent nerve injury, paralysis, and possible , the patient indicated that the patient understood and agreed to proceed. An informed consent document was signed by the patient, witnessed by a nurse, and placed in the patient's chart. Additionally, other treatment options including medications, modalities, and physical therapy were reviewed with the patient. After review of previous anaesthesic history and IV conscious sedation the patient was deemed safe to proceed with today?s procedure with IV conscious sedation as ASA class II designation. Safety time-out was performed to confirm patient ID, procedure to be performed and site of procedure. IV sedation was accomplished with a combination of 3mg of Versed and 50mcg of Fentanyl was administered by the RN after DO order, titrated to patient comfort during the course of the procedure while the patient remained responsive to all verbal c ommands In the prone position following sterile prep and drape of the lumbar region, the Right L4/5 posterior neuroforamen was identified fluoroscopically. The skin was anesthetized via a 25-gauge 1.5-inch needle with 1% lidocaine solution. At this point, a 25-gauge 3.5-inch spinal needle was atraumatically introduced and advanced under fluoroscopic guidance through the posterior Right L4/5 neuroforamen to approximately the anterior aspect of the canal. Depth was confirmed on lateral view. Following negative aspiration, injection of approximately 1.5cc of Isovue 200 under live fluoroscopy in the AP view confirmed excellent flow along the nerve root, into the epidural space without vascular or intrathecal uptake observed Radiological data, including multiple fluoroscopic views of the lumbosacral spine, reveal a spinal needle at the right L4/5 posterior neuroforamen. Subsequent views show flow of contrast material flowing superiorly and inferiorly along the nerve root confirming epidural flow. Subsequently, a test dose of 1.5 cc of 1% lidocaine solution was administered and patient was observed for two minutes for signs or symptoms of complications, including abdominal pain, shortness of breath, bilateral upper or lower extremity weakness, nausea and vomiting, prior to steroid injection. At this point, a total of 3cc or 20mg of dexamethasone and 6mg of betamethasone was injected without incident. The procedure tolerated the procedure well without signs or symptoms of complications prior to transfer to the recovery area continued monitoring without incident. The patient was then transferred to the recovery area where they were observed for an appropriate time after the injection. The patient reported a VAS score of 7 prior to the procedure and a post- procedure VAS of 0. POST OP INSTRUCTIONS The patient was provided a Pain Log to continue to record their response to the target-specific procedure prior to follow-up visit with their referring physician. Additionally, specific post-injection care instructions and a contact number to our office were provided if concerns arise regarding possible complications associated with the procedure are suspected.
== END 2020-06-08 16:10 | disposition home or self-care (01) ==
LOC: RAD 14:57
PROVIDERS: PCP Internal Medicine; Referring Provider Physical Medicine & Rehabilitation; Visit Provider Physical Medicine & Rehabilitation
DX: M47.816 Spondylosis without myelopathy or radiculopathy, lumbar region (principal); M51.26 Other intervertebral disc displacement, lumbar region
CPT/HCPCS: 64483; J0702; J1100; J2250; J3010

== ENCOUNTER 2020-06-27 11:37 | Emergency (ER) | payer MEDICARE, MEDICAID, SELFPAY ==
[2020-06-27 11:37] VITALS: BP 128/71; PULSE 83; RESP 16; TEMP 36.9; O2SAT 97; BMI 25.8
[2020-06-27 12:08] LABS: Add Manual Diff / Slide Review NO; Basophils Absolute Auto 100 /uL (0-100); Basophils Percent Auto 0.9 % (0-2); Eosinophils Absolute Auto 0 /uL (0-450); Eosinophils Percent Auto 0.4 % (2-4); Hematocrit 36.7 % (41-53); Hemoglobin 12.4 g/dL (13.5-17.5); Lymphocytes Absolute Auto 1800 /uL (1100-4500); Mean Corpuscular HGB Conc 33.8 % (30-36); Mean Corpuscular Hemoglobin 31.5 PG (26-34); Mean Corpuscular Volume 93.1 fL (80-100); Monocytes Absolute Auto 400 /uL (0-900); Monocytes Percent Auto 3.9 % (3-14); Neutrophils Absolute Auto 7200 /uL (1500-7000); Neutrophils Percent Auto 75.8 % (50-75); Platelet Count 115 X10^3/uL (150-400); Red Blood Cell Count 3.94 X10^6/uL (4.5-5.9); Red Cell Distribution Width 16.4 % (11.6-14.8); White Blood Cell Count 9.4 X10^3/uL (4.5-11.0)
[2020-06-27 12:15] LABS: INR 0.9 (0.9-1.3)
[2020-06-27 12:18] LABS: PTT Partial Thromboplastin Tim 32 SECONDS (26.4-36.2)
[2020-06-27 12:20] LABS: Ethanol (ETOH) 297 mg/dL
[2020-06-27 12:21] LABS: Alanine Aminotransferase 47 IU/L (<50); Albumin 4.2 g/dL (3.5-5.0); Albumin Globulin Ratio 1.4 (1.0-2.8); Alkaline Phosphatase 105 U/L (38-126); Aspartate Aminotransferase 55 IU/L (17-59); BUN Creatinine Ratio 14.1 (6-22); Bilirubin Total 0.3 mg/dL (0.2-1.3); Blood Urea Nitrogen 9 mg/dL (9-20); Carbon Dioxide 30 mmol/L (22-32); Chloride 108 mmol/L (98-107); Estimated Glomerular Filt Rate > 60.0 mL/min (>60); Globulin 2.9 g/dL (1.7-4.1); Glucose 108 mg/dL (70-100); HEMOLYSIS < 15 (0-50); Potassium 3.8 mmol/L (3.4-5.1); Sodium 145 mmol/L (137-145); Total Protein 7.1 g/dL (6.3-8.2)
[2020-06-27] MEDS: LORazepam 2 MG/ML INJ 1 MG IV (12:57)
[2020-06-27 13:05] LABS: Bacteria Urine None Seen; RBC Urine None Seen (0-5/HPF); WBC Urine None Seen (0-5/HPF)
[2020-06-27 13:11] LABS: Appearance Urine UA CLEAR; Bilirubin Urine UA NEGATIVE (NEGATIVE); Color Urine UA YELLOW; Glucose Urine UA NEGATIVE (Negative); Ketones Urine UA NEGATIVE (NEGATIVE); Leukocyte Esterase Urine UA NEGATIVE (NEGATIVE); Nitrite Urine UA NEGATIVE (Negative); Occult Blood Urine UA NEGATIVE (Negative); Protein Urine UA NEGATIVE (Negative); Urobilinogen Urine UA 0.2 E.U./dL (0.2)
--- NOTE | 2020-06-27 13:13 | DI.CT.S_ITS ---
PROCEDURE: CT ABDOMEN PELVIS W CON INDICATIONS: abd and rectal pain, dark/ tarry stools hx colectomy TECHNIQUE: After the administration of intravenous contrast, 5 mm thick sections acquired from the diaphragm to the symphysis. 5 mm coronal and sagittal reformats were acquired. For radiation dose reduction, the following was used: automated exposure control, adjustment of mA and/or kV according to patient size. COMPARISON: [facility], CT, CT ABDOMEN PELVIS W CON, 01/05/2019, 13:39. FINDINGS: Image quality: Excellent. ABDOMEN: Lung bases: Lung bases are clear. Heart size is normal. Small hiatal hernia. Solid organs: Hepatic steatosis. Liver is normal in size and enhancement. Gallbladder is surgically absent. Biliary system is non dilated. Pancreas enhances normally. Spleen is normal in size and enhancement. No adrenal nodules. Kidneys demonstrate normal size and enhancement, without hydronephrosis. Peritoneum and bowel: Appendix is normal, measuring 6 mm in diameter. The terminal ileum may be mildly thickened. Bowel loops demonstrate normal caliber. There are postsurgical changes with surgical anastomosis in sigmoid colon. No free fluid or air. Nodes and vessels: No retroperitoneal or mesenteric adenopathy by size criteria. Aorta and inferior vena cava are normal in size. Miscellaneous: No ventral hernias. PELVIS: Genitourinary: Bladder wall thickness is normal. Miscellaneous: There is perianal stranding. A 2.0 x 2.1 cm rim enhancing fluid collection is seen posterior to anus, suspicious for a perianal abscess. No inguinal hernias or adenopathy. Bones: No suspicious bony lesions. No vertebral body compression fractures. IMPRESSION: 1. There is perianal stranding. A 2.0 x 2.1 cm rim enhancing fluid collection is seen posterior to the anus suspicious for a perianal abscess. 2. Question mild thickening of the terminal ileum. Differential diagnosis include inflammatory bowel disease such as Crohn's disease versus artifact. 3. Normal appendix. 4. Hepatic steatosis. Dictated by: Mikayla Law M.D. on 06/27/2020 at 14:19 Approved by: Mikayla Law M.D. on 06/27/2020 at 14:29
[2020-06-27 13:16] LABS: UR Morphine/Opiate cutoff 300 Negative (Negative); Ur Creatinine Normal (Normal); Ur Specific Gravity Normal (Normal); Urine Amphetamines Negative (Negative); Urine Barbiturates Negative (Negative); Urine Benzodiazepines Negative (Negative); Urine Cocaine Negative (Negative); Urine MDMA Negative (Negative); Urine Methadone Negative (Negative); Urine Methamphetamines Negative (Negative); Urine Oxycodone Negative (Negative); Urine Phencyclidine Negative (Negative); Urine Tetrahydrocannabinol Negative (Negative); Urine Tricyclic Antidepressant Negative (Negative); Urine pH Normal (Normal)
[2020-06-27 13:18] LABS: Culture Indicated Urine Cult Not Indicated; Urine Comments Microscopic Normal
[2020-06-27] MEDS: levoFLOXacin 750 MG/150 ML PIGGYBACK 100 MG IV (15:23)
[2020-06-27] MEDS: HYDROCODONE/ACET 5/325 TABLET 1 TAB PO (15:24)
[2020-06-27] MEDS: PANTOPRAZOLE 40 MG VIAL IV (15:24)
--- NOTE | 2020-06-27 16:22 | ED_ITS ---
HPI - GI Bleed <EUGENIO Gonzalez - Last Filed: 06/27/20 17:00> General Chief complaint: GI Bleed Stated complaint: Rectal pain Time Seen by Provider: 06/27/20 12:10 Source: patient and EMS Mode of arrival: EMS Limitations: no limitations History of Present Illness HPI Narrative: The patient is a 54-year-old male current everyday smoker current alcohol user who presents with a chief complaint of lower abdominal pain that has been ongoing for the past week or so, accompanied by black tarry stools and rectal pain. He states that the rectal pain is what makes him come to the emergency department today mostly. He does drink every day, states that he has been medicating with alcohol this morning with multiple shots and ears. He denies any fevers, complains of muscle aches and fatigue. Denies any cough or congestion. He does have a history of a cholecystectomy followed by a colectomy related to a bowel riley. No nausea or vomiting was noted. Related Data Home Medications Medication Instructions Recorded Confirmed quetiapine 50 mg PO BEDTIME 01/05/19 05/17/20 Previous Rx's Medication Instructions Recorded cyclobenzaprine 10 mg tablet 10 mg PO TID PRN #90 tab 11/13/18 ondansetron 4 mg PO Q6-8H PRN #10 tab 01/05/19 ibuprofen 600 mg PO QID PRN #20 tab 09/04/19 diazepam 10 mg tablet 10 mg PO .COMPLEX PRN #10 tab 05/17/20 methylprednisolone 4 mg tablets in See Rx Instructions PO PER PKG DIR 05/17/20 a dose pack #21 ea hydrocodone-acetaminophen [[place]] 1 tab PO Q4-6H PRN #10 tab 06/27/20 levofloxacin 750 mg PO DAILY #10 tab 06/27/20 pantoprazole [Protonix] 40 mg PO DAILY #14 tab 06/27/20 Allergies Allergy/AdvReac Type Severity Reaction Status Date / Time Penicillins Allergy Severe Anaphylaxis Verified 05/17/20 07:46 Review of Systems <EUGENIO Gonzalez - Last Filed: 06/27/20 17:00> Review of Systems Narrative: GENERAL: Denies chills, fatigue, malaise, fever, sweats. HEENT: Denies sinus pain, ear pain, sore throat, difficulty swallowing, dizziness. RESPIRATORY: Denies dyspnea, cough, wheezing, hemoptysis, sputum. CARDIOVASCULAR: Denies chest pain, palpitations, orthopnea, edema, GASTROINTESTINAL: see HPI : Denies dysuria, frequency, incontinence, hematuria, urinary retention. MUSCULOSKELETAL: denies weakness, joint pain, or bony pain SKIN: Denies rash, skin lesions, or other NEUROLOGIC: Denies weakness, headache, numbness, change in speech, confusion, seizures, incoordination. PSYCHIATRIC: No concerning psychosocial issues. 12 point review of systems is negative except for those stated above Patient History <GERALDINE Gonzalez-BC - Last Filed: 06/27/20 17:00> Medical History Chronic back pain Degenerative disc disease Facet arthropathy, lumbar [place] Gait instability Herniated nucleus pulposus, L4-5 Smoker Surgical History History of colostomy reversal Status post cholecystectomy Status post exploratory laparotomy Status post rotator cuff repair Family History Other No pertinent family history in first degree relatives Social History Smoking Status: Current every day smoker Smoking Status: Current every day smoker alcohol intake frequency: 3 or more drinks per day Alcohol type: beer Substance Use Type: does not use Exam <GERALDINE Gonzalez- - Last Filed: 06/27/20 17:00> Narrative Exam Narrative: GENERAL: This is a well-nourished, well-developed patient, in mild distress. HEAD: Atraumatic. Normocephalic. No temporal or scalp tenderness. EYES: Pupils equal round and reactive. Extraocular motions intact. No scleral icterus. No injection or drainage. ENT: Nose without bleeding, purulent drainage or septal hematoma. Wearing a mask. Airway patent. NECK: Trachea midline. No JVD or lymphadenopathy. Supple, nontender, no menin geal signs. CARDIOVASCULAR: Regular rate and rhythm RESPIRATORY: Clear to auscultation. Breath sounds equal bilaterally. No wheezes, rales, or rhonchi. No cough. No increased respiratory effort. No accessory muscle use. GASTROINTESTINAL: Abdomen soft, diffusely tender, nondistended. No hepato-sp lenomegaly, or palpable masses. No guarding. Rectal exam with Isabella RN at bedside, no gross blood, no stool EXTREMITIES: No clubbing, cyanosis, or edema. No joint tenderness, effusion, or edema noted. BACK: Nontender without deformity or crepitance. No flank tenderness. NEURO: AOx3. SKIN: No rash or erythema on visible skin Initial Vital Signs Initial Vital Signs: Vital Signs Temperature 98.4 F 06/27/20 11:37 Pulse Rate 83 06/27/20 11:37 Respiratory Rate 16 06/27/20 11:37 Blood Pressure 128/71 06/27/20 11:37 Pulse Oximetry 97 06/27/20 11:37 <Regulo Barahona MD - Last Filed: 06/28/20 12:18> Initial Vital Signs Initial Vital Signs: Vital Signs Temperature 98.4 F 06/27/20 11:37 Pulse Rate 83 06/27/20 11:37 Respiratory Rate 16 06/27/20 11:37 Blood Pressure 128/71 06/27/20 11:37 Pulse Oximetry 97 06/27/20 11:37 Course <EUGENIO Gonzalez - Last Filed: 06/27/20 17:00> Orders Ordered: Discontinued Medications Hydrocodone Bitart/Acetaminophen (Hydrocodone/Acet 5/325 Tablet) 1 tab PO NOW ONE Stop: 06/27/20 15:13 Last Admin: 06/27/20 15:24 Dose: 1 tab Documented by: SHANON Levofloxacin (Levaquin) 750 mg in 150 mls @ 100 mls/hr IV NOW ONE Stop: 06/27/20 16:41 Last Infusion: 06/27/20 16:56 Dose: 0 mls/hr Documented by: Admin: 06/27/20 15:23 Dose: 100 mls/hr Documented by: SHANON Lorazepam (Lorazepam 2 Mg/Ml Inj) 1 mg IV NOW ONE Stop: 06/27/20 12:51 Last Admin: 06/27/20 12:57 Dose: 1 mg Documented by: KARISHMA Pantoprazole Sodium (Pantoprazole 40 Mg Vial) 40 mg IV NOW ONE Stop: 06/27/20 15:13 Last Admin: 06/27/20 15:24 Dose: 40 mg Documented by: SHANON Vital Signs Vital signs: Vital Signs - 8 hr 06/27/20 11:37 06/27/20 16:36 Temperature 98.4 F Pulse Rate 83 83 Respiratory Rate 16 16 Blood Pressure 128/71 139/87 Pulse Oximetry 97 99 <Regulo Barahona MD - Last Filed: 06/28/20 12:18> Orders Ordered: Discontinued Medications Hydrocodone Bitart/Acetaminophen (Hydrocodone/Acet 5/325 Tablet) 1 tab PO NOW ONE Stop: 06/27/20 15:13 Last Admin: 06/27/20 15:24 Dose: 1 tab Documented by: SHANON Levofloxacin (Levaquin) 750 mg in 150 mls @ 100 mls/hr IV NOW ONE Stop: 06/27/20 16:41 Last Infusion: 06/27/20 16:56 Dose: 0 mls/hr Documented by: Admin: 06/27/20 15:23 Dose: 100 mls/hr Documented by: SHANON Lorazepam (Lorazepam 2 Mg/Ml Inj) 1 mg IV NOW ONE Stop: 06/27/20 12:51 Last Admin: 06/27/20 12:57 Dose: 1 mg Documented by: KARISHMA Pantoprazole Sodium (Pantoprazole 40 Mg Vial) 40 mg IV NOW ONE Stop: 06/27/20 15:13 Last Admin: 06/27/20 15:24 Dose: 40 mg Documented by: SHANON Vital Signs Vital signs: Vital Signs - 8 hr 06/27/20 11:37 06/27/20 16:36 Temperature 98.4 F Pulse Rate 83 83 Respiratory Rate 16 16 Blood Pressure 128/71 139/87 Pulse Oximetry 97 99 MDM - GI Bleed <GERALDINE Gonzalez-BC - Last Filed: 06/27/20 17:00> Lab Data Attestation: I reviewed the patient's lab results. Result diagrams: 06/27/20 11:53 06/27/20 11:53 Labs: Lab Results 06/27/20 06/27/20 06/27/20 Range/Units 11:53 11:53 11:53 WBC 9.4 (4.5-11.0) X10^3/uL RBC 3.94 L (4.5-5.9) X10^6/uL Hgb 12.4 L (13.5-17.5) g/dL Hct 36.7 L (41-53) % MCV 93.1 (80-100) fL MCH 31.5 (26-34) PG MCHC 33.8 (30-36) % RDW 16.4 H (11.6-14.8) % Plt Count 115 L (150-400) X10^3/uL Neut % (Auto) 75.8 H (50-75) % Lymph % (Auto) 19.0 L (25-40) % [place] % (Auto) 3.9 (3-14) % Eos % (Auto) 0.4 L (2-4) % Baso % (Auto) 0.9 (0-2) % Neut # (Auto) 7200 H (3851-5030) /uL Lymph # (Auto) 1800 (5739-8496) /uL [place] # (Auto) 400 (0-900) /uL Eos # (Auto) 0 (0-450) /uL Baso # (Auto) 100 (0-100) /uL PT 10.0 L (10.1-12.7) SECONDS INR 0.9 (0.9-1.3) APTT 32 (26.4-36.2) SECONDS Sodium 145 (137-145) mmol/L Potassium 3.8 (3.4-5.1) mmol/L Chloride 108 H (98-107) mmol/L Carbon Dioxide 30 (22-32) mmol/L BUN 9 (9-20) mg/dL Creatinine 0.64 L (0.66-1.25) mg/dL Estimated GFR > 60.0 (>60) mL/min BUN/Creatinine Ratio 14.1 (6-22) Glucose 108 H (70-100) mg/dL Calcium 9.0 (8.4-10.2) mg/dL Total Bilirubin 0.3 (0.2-1.3) mg/dL AST 55 (17-59) IU/L ALT 47 (<50) IU/L Alkaline Phosphatase 105 (38-126) U/L Total Protein 7.1 (6.3-8.2) g/dL Albumin 4.2 (3.5-5.0) g/dL Globulin 2.9 (1.7-4.1) g/dL Albumin/Globulin Ratio 1.4 (1.0-2.8) Urine Color Urine Appearance Urine pH (4.5-8.0) Ur Specific [place] (1.000-1.035) Urine Protein (Negative) Urine Glucose (UA) (Negative) g/dL Urine Ketones (NEGATIVE) Urine Occult Blood (Negative) Urine Nitrate (Negative) Urine Bilirubin (NEGATIVE) Urine Urobilinogen (0.2) E.U./dL Ur Leukocyte Esterase (NEGATIVE) Urine RBC (0-5/HPF) Urine WBC (0-5/HPF) Urine Bacteria (None) Ur Culture Indicated? Micro UA Comment U Opiates 300ng/mL cut (Negative) Ur Oxycodone Screen (Negative) Urine Methadone Screen (Negative) Ur Barbiturates Screen (Negative) U Tricyclic Antidepress (Negative) Ur Phencyclidine Scrn (Negative) Ur Amphetamines Screen (Negative) U Methamphetamines Scrn (Negative) Ur MDMA Scrn (Ecstasy) (Negative) U Benzodiazepines Scrn (Negative) Urine Cocaine Screen (Negative) U Marijuana (THC) Screen (Negative) Ethyl Alcohol ( - 10) mg/dL 06/27/20 06/27/20 06/27/20 Range/Units 11:53 12:56 12:56 WBC (4.5-11.0) X10^3/uL RBC (4.5-5.9) X10^6/uL Hgb (13.5-17.5) g/dL Hct (41-53) % MCV (80-100) fL MCH (26-34) PG MCHC (30-36) % RDW (11.6-14.8) % Plt Count (150-400) X10^3/uL Neut % (Auto) (50-75) % Lymph % (Auto) (25-40) % [place] % (Auto) (3-14) % Eos % (Auto) (2-4) % Baso % (Auto) (0-2) % Neut # (Auto) (8291-4889) /uL Lymph # (Auto) (0725-7744) /uL [place] # (Auto) (0-900) /uL Eos # (Auto) (0-450) /uL Baso # (Auto) (0-100) /uL PT (10.1-12.7) SECONDS INR (0.9-1.3) APTT (26.4-36.2) SECONDS Sodium (137-145) mmol/L Potassium (3.4-5.1) mmol/L Chloride (98-107) mmol/L Carbon Dioxide (22-32) mmol/L BUN (9-20) mg/dL Creatinine (0.66-1.25) mg/dL Estimated GFR (>60) mL/min BUN/Creatinine Ratio (6-22) Glucose (70-100) mg/dL Calcium (8.4-10.2) mg/dL Total Bilirubin (0.2-1.3) mg/dL AST (17-59) IU/L ALT (<50) IU/L Alkaline Phosphatase (38-126) U/L Total Protein (6.3-8.2) g/dL Albumin (3.5-5.0) g/dL Globulin (1.7-4.1) g/dL Albumin/Globulin Ratio (1.0-2.8) Urine Color Yellow Urine Appearance Clear Urine pH 7.0 (4.5-8.0) Ur Specific [place] 1.010 (1.000-1.035) Urine Protein Negative (Negative) Urine Glucose (UA) Negative (Negative) g/dL Urine Ketones Negative (NEGATIVE) Urine Occult Blood Negative (Negative) Urine Nitrate Negative (Negative) Urine Bilirubin Negative (NEGATIVE) Urine Urobilinogen 0.2 (0.2) E.U./dL Ur Leukocyte Esterase Negative (NEGATIVE) Urine RBC None seen (0-5/HPF) Urine WBC None seen (0-5/HPF) Urine Bacteria None seen (None) Ur Culture Indicated? Cult not indicated Micro UA Comment Microscopic normal U Opiates 300ng/mL cut Negative (Negative) Ur Oxycodone Screen Negative (Negative) Urine Methadone Screen Negative (Negative) Ur Barbiturates Screen Negative (Negative) U Tricyclic Antidepress Negative (Negative) Ur Phencyclidine Scrn Negative (Negative) Ur Amphetamines Screen Negative (Negative) U Methamphetamines Scrn Negative (Negative) Ur MDMA Scrn (Ecstasy) Negative (Negative) U Benzodiazepines Scrn Negative (Negative) Urine Cocaine Screen Negative (Negative) U Marijuana (THC) Screen Negative (Negative) Ethyl Alcohol 297 H ( - 10) mg/dL Imaging Data CT scan - abdomen/pelvis: Radiologist's Impression: [address] [id number] Scan ReportSigned Patient: Shane Antunez [facility]#: [id number]: 1965Acct:[id number]/Sex: 54 / MDate of Service: 06/27/20Loc: EDAccession Number: [id number] Procedure: CT abdomen pelvis w con Ordering Provider: Narcisa LrBC PROCEDURE: CT ABDOMEN PELVIS W CON INDICATIONS: abd and rectal pain, dark/ tarry stools hx colectomy TECHNIQUE: After the administration of intravenous contrast, 5 mm thick sections acquired from the diaphragm to the symphysis. 5 mm coronal and sagittal reformats were acquired. For radiation dose reduction, the following was used: automated exposure control, adjustment of mA and/or kV according to patient size. COMPARISON: [facility], CT, CT ABDOMEN PELVIS W CON, 01/05/2019, 13:39. FINDINGS: Image quality: Excellent. ABDOMEN: Lung bases: Lung bases are clear. Heart size is normal. Small hiatal hernia. Solid organs: Hepatic steatosis. Liver is normal in size and enhancement. Gallbladder is surgically absent. Biliary system is non dilated. Pancreas enhances normally. Spleen is normal in size and enhancement. No adrenal nodules. Kidneys demonstrate normal size and enhancement, without hydronephrosis. Peritoneum and bowel: Appendix is normal, measuring 6 mm in diameter. The terminal ileum may be mildly thickened. Bowel loops demonstrate normal caliber. There are postsurgical changes with surgical anastomosis in sigmoid colon. No free fluid or air. Nodes and vessels: No retroperitoneal or mesenteric adenopathy by size criteria. Aorta and inferior vena cava are normal in size. Miscellaneous: No ventral hernias. PELVIS: Genitourinary: Bladder wall thickness is normal. Miscellaneous: There is perianal stranding. A 2.0 x 2.1 cm rim enhancing fluid collection is seen posterior to anus, suspicious for a perianal abscess. No inguinal hernias or adenopathy. Bones: No suspicious bony lesions. No vertebral body compression fractures. IMPRESSION: 1. There is perianal stranding. A 2.0 x 2.1 cm rim enhancing fluid collection is seen posterior to the anus suspicious for a perianal abscess. 2. Question mild thickening of the terminal ileum. Differential diagnosis include inflammatory bowel disease such as Crohn's disease versus artifact. 3. Normal appendix. 4. Hepatic steatosis. Dictated by: Mikayla Law M.D. on 06/27/2020 at 14:19 Approved by: Mikayla Law M.D. on 06/27/2020 at 14:29 [facility] Narrative Medical decision making narrative: The patient is a 54-year-old male who presents with a chief complaint of rectal pain as well as black tarry stools. CT abdomen pelvis obtained which shows concern for a perianal abscess. His hi story of alcoholism as well as black tarry stools is concerning for a possible upper GI bleed. Given this etiology, lab work was done, he is not significantly anemic at this time, no leukocytosis noted. However patient is intoxicated with an alcohol of almost 300, which required careful use of pain medications. Given his scans, did speak with Dr. Byrd surgeon on-call, she states that we can start him on a dose of IV antibiotics followed by discharge and p.o. antibiotics. She encourage as follow-up with clinic late this week or early next week, as he will need repeat lab work, follow-up and an EGD. I discussed this all at length with the patient. Will use Levaquin a per Dr. Byrd's recommendations as the patient is anaphylactic to penicillins. Did discussed the possibility of tendon issues and discussed monitor for tendinitis. Encouraged follow-up with primary care provider. Patient also placed on Protonix. Discussed come back to ER for acute concerns such as inability keep down fluids, abdominal pain with fever etcetera <Regulo Barahona MD - Last Filed: 06/28/20 12:18> Lab Data Labs: Lab Results 06/27/20 06/27/20 06/27/20 Range/Units 11:53 11:53 11:53 WBC 9.4 (4.5-11.0) X10^3/uL RBC 3.94 L (4.5-5.9) X10^6/uL Hgb 12.4 L (13.5-17.5) g/dL Hct 36.7 L (41-53) % MCV 93.1 (80-100) fL MCH 31.5 (26-34) PG MCHC 33.8 (30-36) % RDW 16.4 H (11.6-14.8) % Plt Count 115 L (150-400) X10^3/uL Neut % (Auto) 75.8 H (50-75) % Lymph % (Auto) 19.0 L (25-40) % [place] % (Auto) 3.9 (3-14) % Eos % (Auto) 0.4 L (2-4) % Baso % (Auto) 0.9 (0-2) % Neut # (Auto) 7200 H (4374-4241) /uL Lymph # (Auto) 1800 (0433-8486) /uL [place] # (Auto) 400 (0-900) /uL Eos # (Auto) 0 (0-450) /uL Baso # (Auto) 100 (0-100) /uL PT 10.0 L (10.1-12.7) SECONDS INR 0.9 (0.9-1.3) APTT 32 (26.4-36.2) SECONDS Sodium 145 (137-145) mmol/L Potassium 3.8 (3.4-5.1) mmol/L Chloride 108 H (98-107) mmol/L Carbon Dioxide 30 (22-32) mmol/L BUN 9 (9-20) mg/dL Creatinine 0.64 L (0.66-1.25) mg/dL Estimated GFR > 60.0 (>60) mL/min BUN/Creatinine Ratio 14.1 (6-22) Glucose 108 H (70-100) mg/dL Calcium 9.0 (8.4-10.2) mg/dL Total Bilirubin 0.3 (0.2-1.3) mg/dL AST 55 (17-59) IU/L ALT 47 (<50) IU/L Alkaline Phosphatase 105 (38-126) U/L Total Protein 7.1 (6.3-8.2) g/dL Albumin 4.2 (3.5-5.0) g/dL Globulin 2.9 (1.7-4.1) g/dL Albumin/Globulin Ratio 1.4 (1.0-2.8) Urine Color Urine Appearance Urine pH (4.5-8.0) Ur Specific [place] (1.000-1.035) Urine Protein (Negative) Urine Glucose (UA) (Negative) g/dL Urine Ketones (NEGATIVE) Urine Occult Blood (Negative) Urine Nitrate (Negative) Urine Bilirubin (NEGATIVE) Urine Urobilinogen (0.2) E.U./dL Ur Leukocyte Esterase (NEGATIVE) Urine RBC (0-5/HPF) Urine WBC (0-5/HPF) Urine Bacteria (None) Ur Culture Indicated? Micro UA Comment U Opiates 300ng/mL cut (Negative) Ur Oxycodone Screen (Negative) Urine Methadone Screen (Negative) Ur Barbiturates Screen (Negative) U Tricyclic Antidepress (Negative) Ur Phencyclidine Scrn (Negative) Ur Amphetamines Screen (Negative) U Methamphetamines Scrn (Negative) Ur MDMA Scrn (Ecstasy) (Negative) U Benzodiazepines Scrn (Negative) Urine Cocaine Screen (Negative) U Marijuana (THC) Screen (Negative) Ethyl Alcohol ( - 10) mg/dL 06/27/20 06/27/20 06/27/20 Range/Units 11:53 12:56 12:56 WBC (4.5-11.0) X10^3/uL RBC (4.5-5.9) X10^6/uL Hgb (13.5-17.5) g/dL Hct (41-53) % MCV (80-100) fL MCH (26-34) PG MCHC (30-36) % RDW (11.6-14.8) % Plt Count (150-400) X10^3/uL Neut % (Auto) (50-75) % Lymph % (Auto) (25-40) % [place] % (Auto) (3-14) % Eos % (Auto) (2-4) % Baso % (Auto) (0-2) % Neut # (Auto) (5127-2478) /uL Lymph # (Auto) (7961-3101) /uL [place] # (Auto) (0-900) /uL Eos # (Auto) (0-450) /uL Baso # (Auto) (0-100) /uL PT (10.1-12.7) SECONDS INR (0.9-1.3) APTT (26.4-36.2) SECONDS Sodium (137-145) mmol/L Potassium (3.4-5.1) mmol/L Chloride (98-107) mmol/L Carbon Dioxide (22-32) mmol/L BUN (9-20) mg/dL Creatinine (0.66-1.25) mg/dL Estimated GFR (>60) mL/min BUN/Creatinine Ratio (6-22) Glucose (70-100) mg/dL Calcium (8.4-10.2) mg/dL Total Bilirubin (0.2-1.3) mg/dL AST (17-59) IU/L ALT (<50) IU/L Alkaline Phosphatase (38-126) U/L Total Protein (6.3-8.2) g/dL Albumin (3.5-5.0) g/dL Globulin (1.7-4.1) g/dL Albumin/Globulin Ratio (1.0-2.8) Urine Color Yellow Urine Appearance Clear Urine pH 7.0 (4.5-8.0) Ur Specific [place] 1.010 (1.000-1.035) Urine Protein Negative (Negative) Urine Glucose (UA) Negative (Negative) g/dL Urine Ketones Negative (NEGATIVE) Urine Occult Blood Negative (Negative) Urine Nitrate Negative (Negative) Urine Bilirubin Negative (NEGATIVE) Urine Urobilinogen 0.2 (0.2) E.U./dL Ur Leukocyte Esterase Negative (NEGATIVE) Urine RBC None seen (0-5/HPF) Urine WBC None seen (0-5/HPF) Urine Bacteria None seen (None) Ur Culture Indicated? Cult not indicated Micro UA Comment Microscopic normal U Opiates 300ng/mL cut Negative (Negative) Ur Oxycodone Screen Negative (Negative) Urine Methadone Screen Negative (Negative) Ur Barbiturates Screen Negative (Negative) U Tricyclic Antidepress Negative (Negative) Ur Phencyclidine Scrn Negative (Negative) Ur Amphetamines Screen Negative (Negative) U Methamphetamines Scrn Negative (Negative) Ur MDMA Scrn (Ecstasy) Negative (Negative) U Benzodiazepines Scrn Negative (Negative) Urine Cocaine Screen Negative (Negative) U Marijuana (THC) Screen Negative (Negative) Ethyl Alcohol 297 H ( - 10) mg/dL Discharge Plan Departure Patient Disposition: Home Clinical Impression: Anal abscess GI bleed Qualifiers: GI bleed type/associated pathology: unspecified gastrointestinal hemorrhage type Qualified Code(s): K92.2 - Gastrointestinal hemorrhage, unspecified Instructions: DI for Anal Abscess, Gastrointestinal Bleeding Activity Restrictions/Additional Instructions: Thank you for trusting us with your care today. As discussed, your evaluation is concerning for upper GI bleeding. This could be related to your alcohol use. It is also concerning for an anal abscess. I spoke with Dr. Byrd regarding both of these findings. We have given you an IV antibiotics in the emergency department I have sent in prescriptions of antibiotics for you. As discussed, please monitor for tendon pain etcetera. Please take this antibiotic with probiotic or yogurt. Dr. Mcdonald, like you to follow-up with her or surgery clinic late this week or early next week. I have included their contact information. I also sent a prescription of Protonix for you. This can help decrease GI bleeding. I advise you to stop drinking alcohol. I also sent in a prescription of hydrocodone with Tylenol for you. Please avoid alcohol as well as NSAIDs such as ibuprofen or Aleve You have been prescribed narcotic medications. While on these medications you cannot drive or operate heavy machinery. Additionally you cannot sign legal documents or perform any duties such as this. Many people get constipated on narcotic medications so it would be advisable to discuss stool softeners with the pharmacist when you burr picker your prescription. I also suggest a follow-up with primary care provider in the next few days Prescriptions: New levofloxacin 750 mg tablet 750 mg PO DAILY Qty: 10 RF: 0 pantoprazole [Protonix] 40 mg tablet,delayed release (DR/EC) 40 mg PO DAILY Qty: 14 RF: 0 hydrocodone-acetaminophen [[place]] 5-325 mg tablet 1 tab PO Q4-6H PRN (Reason: pain) Qty: 10 RF: 0 No Action cyclobenzaprine 10 mg tablet 10 mg PO TID PRN (Reason: Back Pain) Qty: 90 RF: 2 quetiapine 50 mg tablet 50 mg PO BEDTIME RF: 0 ondansetron 4 mg tablet,disintegrating 4 mg PO Q6-8H PRN (Reason: nausea and vomiting) Qty: 10 RF: 0 ibuprofen 600 mg tablet 600 mg PO QID PRN (Reason: pain) Qty: 20 RF: 0 methylprednisolone [Medrol ([place])] 4 mg tablets,dose pack See Rx Instructions PO PER PKG DIR Qty: 21 RF: 0 diazepam [Valium] 10 mg tablet 10 mg PO .COMPLEX PRN (Reason: sedation) Qty: 10 RF: 0 Referrals: [facility] [Provider Group] Jackie Byrd MD [Physician] - Regulo Escalera MD [Primary Care Provider] - <Regulo Barahona MD - Last Filed: 06/28/20 12:18> [facility] I was immediately available in the department for consultation. This documentation has been reviewed and I agree with assessment and plan. Supervised by Regulo Barahona MD
[2020-06-27 16:36] VITALS: BP 139/87; PULSE 83; RESP 16; O2SAT 99
== END 2020-06-27 17:04 | disposition home or self-care (01) ==
PROVIDERS: Emergency Medicine; Emergency Provider Nurse Practitioner Family; PCP Internal Medicine
DX: K92.2 Gastrointestinal hemorrhage, unspecified (principal); K61.0 Anal abscess; F10.129 Alcohol abuse with intoxication, unspecified; Y90.8 Blood alcohol level of 240 mg/100 ml or more; K62.89 Other specified diseases of anus and rectum
CPT/HCPCS: 74177; 80053; 80305; 80320; 81001; 85025; 85610; 85730; 93005; 96365; 96366; 96375; 99284; C9113; J1956; J2060

== ENCOUNTER → 2020-10-03 07:36 | Outpatient (CLI) | payer MEDICARE, MEDICAID, SELFPAY ==
[2020-10-03 12:55] LABS: COVID19 -Nasal RAPID Negative (Negative)
== END ==
PROVIDERS: PCP Internal Medicine; Visit Provider Physical Medicine & Rehabilitation
DX: Z20.822 Contact with and (suspected) exposure to COVID-19 (principal)
CPT/HCPCS: 87635; C9803

== ENCOUNTER 2020-10-05 13:59 | Outpatient (CLI) | payer MEDICARE, MEDICAID, SELFPAY ==
[2020-10-05] VITALS (8 sets, daily range): BP systolic 99–113; BP diastolic 50–74; PULSE 66–87; RESP 12–18; TEMP 36.6; O2SAT 98–100
--- NOTE | 2020-10-05 14:02 | DI.RAD.S_ITS ---
PROCEDURE: PAIN L INTERLAMINAR/CAUDAL INJ INDICATIONS: SPONDYLOSIS COMPARISON: None. FINDINGS: Fluoroscopic spot filming was performed to verify placement of spinal needles at the right L4-5 interlaminar notch border as labeled on the films. Appropriate location(s) of the needle tip(s) was confirmed by injection of iodinated contrast. IMPRESSION: Successful needle tip localization for right paramedian L4-L5 trans laminar epidural steroid injection. Dictated by: Pedro Mcdaniel M.D. on 10/05/2020 at 16:29 Approved by: Pedro Mcdaniel M.D. on 10/05/2020 at 16:30
[2020-10-05] MEDS: fentaNYL 100 MCG/2 ML INJ 50 MCG IV (14:43)
[2020-10-05] MEDS: MIDAZOLAM 5 MG/5 ML VIAL IV (14:48)
[2020-10-05] MEDS: DEXAMETHASONE 10 MG/ML VIAL 20 MG INJ (14:49)
[2020-10-05] MEDS: BUPIVACAINE 0.25% (PF) VIAL 2 ML INJ (14:49)
[2020-10-05] MEDS: IOPAMIDOL 15 ML VIAL 3 ML INJ (14:49)
[2020-10-05] MEDS: methylPREDNISolone acetate 80 MG/ML VIAL INJ (14:50)
--- NOTE | 2020-10-05 14:55 | P.PCN_ITS ---
Date/Time/Diagnoses Date of procedure: 10/05/20 Time of procedure: 14:55 Pre-procedure diagnosis: 1. HNP WITH RADICULAR FEATURES, 2. MULTILEVEL CENTRAL STENOSIS, Post-procedure diagnosis: same Procedure Notes Procedure: 1. FLUOROSCOPICALLY GUIDED CONTRAST CONTROLLED INTERLAMINAR EPIDURAL STEROID INJECTION -L4/5 Indications: Shane is referred by Dr. Escalera for treatment of Bilateral Foraminal Stenosis R>L LE symptoms. Physician: Garrett Corral Total Fluoroscopy time (seconds): 6 Total sedation minutes: 9 Complications: none Procedure in detail & Post-procedure care: FINDINGS Multilevel Central Spinal Stenosis with Nerve Root Compression DESCRIPTION OF PROCEDURE Fluoroscopically guided, contrast-controlled L4/5 translaminar epidural steroid injection. Following review of allergy and review of potential side effects and complications, including, but not necessarily limited to, infection, allergic reaction, local tissue breakdown, temporary as well as permanent nerve injury, paralysis, stroke and possible , the patient indicated that the patient understood and agreed to proceed. An informed consent document was signed by the patient, witnessed by a nurse, and placed in the patient's chart. Additionally, other treatment options including modalities, medications, and physical therapy were reviewed with the patient. After review of previous anaesthesic history and IV conscious sedation the patient was deemed safe to proceed with today?s procedure with IV conscious sedation as ASA class II designation. Safety time-out was performed to confirm patient ID, procedure to be performed and site of procedure. IV sedation was accomplished with a combination of 4mg of Versed and 50mcg of Fentanyl was administered by the RN after DO order, titrated to patient comfort during the course of the procedure while the patient remained responsive to all verbal commands In the prone position, following sterile prep and drape of the lumbar region, the L4/5 translaminar space was identified fluoroscopically. The skin was anesthetized via a 25-gauge, 1.5inch needle with 1% lidocaine solution. At this point, a 22-gauge short bevel spinal needle was atraumatically introduced and advanced under fluoroscopic guidance into the region of the L4/5 translaminar space. Depth was confirmed on lateral view. Radiological data, including multiple fluoroscopic views of the lumbar spine, reveal a spinal needle at the L4/5 translaminar space. Lateral views then show placement of the needle in the epidural space. Subsequent views show contrast material flowing superiorly and inferiorly in the epidural space. No vascular or intrathecal uptake is observed. At this point, using loss of resistance technique with saline and air, the epidural space was entered. This was confirmed following negative aspiration with injection of approximately 1.5cc of Isovue 200, showing excellent epidural flow without vascular or intrathecal uptake. At this point, 1cc of 1% lidocaine solution combined with 3cc or 20mg of dexamethasone and 80mg Depo medrol was injected without incident. The patient tolerated the procedure well without signs or symptoms of complica tions prior to transfer to the recovery area continued monitoring without incident. The patient was then transferred to the recovery area where they were observed for an appropriate period of time after the injection. The patient reported a VAS score of 6 prior to the procedure and a post- procedure VAS of 0. POST OP INSTRUCTIONS The patient was provided a Pain Log to continue to record their response to the target-specific procedure prior to follow-up visit with their referring physician. Additionally, specific post-injection care instructions and a contact number to our office were provided if concerns arise regarding possible complications associated with the procedure are suspected.
== END 2020-10-05 15:22 | disposition home or self-care (01) ==
LOC: RAD 14:01
PROVIDERS: PCP Internal Medicine; Referring Provider Physical Medicine & Rehabilitation; Visit Provider Physical Medicine & Rehabilitation
DX: M51.16 Intervertebral disc disorders with radiculopathy, lumbar region (principal); M48.061 Spinal stenosis, lumbar region without neurogenic claudication
CPT/HCPCS: 62323; J1040; J1100; J2250; J3010

== ENCOUNTER → 2020-12-12 08:28 | Outpatient (CLI) | payer MEDICARE, MEDICAID, SELFPAY ==
[2020-12-12 14:11] LABS: COVID19 -Nasal RAPID Negative (Negative)
== END ==
PROVIDERS: PCP Internal Medicine; Visit Provider Physical Medicine & Rehabilitation
DX: Z20.822 Contact with and (suspected) exposure to COVID-19 (principal)
CPT/HCPCS: 87635; C9803

== ENCOUNTER → 2021-02-06 09:02 | Outpatient (CLI) | payer MEDICARE, MEDICAID, SELFPAY ==
--- NOTE | 2021-02-06 | DI.US.S_ITS ---
PROCEDURE: US ABDOMEN LIMITED INDICATIONS: HISTORY ALCOHOL ABUSE TECHNIQUE: Real-time focused scanning was performed of the abdomen, with image documentation. COMPARISON: [facility], CT, CT ABDOMEN PELVIS W CON, 06/27/2020, 13:28. FINDINGS: Status post cholecystectomy. Normal caliber intrahepatic and extrahepatic biliary ducts. Normal hepatic parenchymal echogenicity, echotexture, and contour. No hepatic mass. Normal caliber main portal vein with patent appearance. Pancreas not visualized secondary to obscuration by overlying bowel gas. IMPRESSION: Pancreas not visualized. Status post cholecystectomy. Normal appearance of the liver and no biliary ductal dilatation demonstrated. Dictated by: Cayetano Scott M.D. on 02/06/2021 at 12:03 Approved by: Cayetano Scott M.D. on 02/06/2021 at 12:04
--- NOTE | 2021-02-06 09:41 | DI.RAD.S_ITS ---
PROCEDURE: XR HIP W PEL IF DONE NOEL MIN 4V INDICATIONS: BILATERAL HIP PAIN TECHNIQUE: AP pelvis with lateral view(s) of the bilateral hip(s). COMPARISON: [facility], CR, XR HIP W PEL IF DONE RT 2V, 06/10/2019, 11:13. FINDINGS: Bones: No fractures or dislocations. Pelvic ring appears intact. No suspicious bony lesions. Soft tissues: The visualized bowel gas pattern is normal. No suspicious soft tissue calcifications. Suture material overlies the left sacrum. IMPRESSION: No significant abnormality. Dictated by: Janes Daniels M.D. on 02/06/2021 at 10:03 Approved by: Janes Daniels M.D. on 02/06/2021 at 10:05
== END ==
PROVIDERS: PCP Internal Medicine; Referring Provider Internal Medicine; Visit Provider Internal Medicine
DX: F10.10 Alcohol abuse, uncomplicated (principal); M25.551 Pain in right hip; M25.552 Pain in left hip; Z90.49 Acquired absence of other specified parts of digestive tract
CPT/HCPCS: 73522; 76705

== ENCOUNTER → 2021-02-12 08:27 | Outpatient (CLI) | payer MEDICARE, MEDICAID, SELFPAY ==
[2021-02-12 13:36] LABS: COVID19 -Nasal RAPID Negative (Negative)
== END ==
PROVIDERS: PCP Internal Medicine; Visit Provider Physical Medicine & Rehabilitation
DX: Z20.822 Contact with and (suspected) exposure to COVID-19 (principal)
CPT/HCPCS: 87635; C9803

== ENCOUNTER 2021-02-13 09:01 | Outpatient (CLI) | payer MEDICARE, MEDICAID, SELFPAY ==
[2021-02-13] VITALS (10 sets, daily range): BP systolic 99–119; BP diastolic 54–70; PULSE 60–78; RESP 12–20; TEMP 36.6; O2SAT 98–100
--- NOTE | 2021-02-13 09:02 | DI.RAD.S_ITS ---
PROCEDURE: PAIN L INTERLAMINAR/CAUDAL INJ INDICATIONS: SPONDYLOSIS COMPARISON: [facility], XA, PAIN L INTERLAMINAR/CAUDAL INJ, 10/05/2020, 14:49. FINDINGS: Fluoroscopic spot filming was performed to verify placement of a spinal needle at the L4-L5 level, as labeled on the films. Appropriate location of the needle tip was confirmed by injection of iodinated contrast. IMPRESSION: Intraprocedural examination within normal limits. Dictated by: Patel Machado M.D. on 02/13/2021 at 13:07 Approved by: Patel Machado M.D. on 02/13/2021 at 13:07
[2021-02-13] MEDS: fentaNYL 100 MCG/2 ML INJ 50 MCG IV (10:27)
[2021-02-13] MEDS: MIDAZOLAM 5 MG/5 ML VIAL IV (10:27)
[2021-02-13] MEDS: IOPAMIDOL 15 ML VIAL 3 ML INJ (10:32)
[2021-02-13] MEDS: DEXAMETHASONE 10 MG/ML VIAL 20 MG INJ (10:33)
[2021-02-13] MEDS: BETAMETHASONE 30 MG/5 ML MDV 12 MG INJ (10:33)
[2021-02-13] MEDS: BUPIVACAINE 0.25% (PF) VIAL 2 ML INJ (10:33)
--- NOTE | 2021-02-13 10:38 | P.PCN_ITS ---
Date/Time/Diagnoses Date of procedure: 02/13/21 Time of procedure: 10:38 Pre-procedure diagnosis: 1. HNP WITH RADICULAR FEATURES, 2. MULTILEVEL CENTRAL STENOSIS, Post-procedure diagnosis: same Procedure Notes Procedure: 1. FLUOROSCOPICALLY GUIDED CONTRAST CONTROLLED INTERLAMINAR EPIDURAL STEROID INJECTION -L4/5 Indications: Shane is referred by Dr. Deleon for treatment of Bilateral Foraminal Stenosis R>L LE symptoms. Physician: Garrett Corral Total Fluoroscopy time (seconds): 4 Total sedation minutes: 7 Complications: none Procedure in detail & Post-procedure care: FINDINGS Multilevel Central Spinal Stenosis with Nerve Root Compression DESCRIPTION OF PROCEDURE Fluoroscopically guided, contrast-controlled L4/5 translaminar epidural steroid injection. Following review of allergy and review of potential side effects and complications, including, but not necessarily limited to, infection, allergic reaction, local tissue breakdown, temporary as well as permanent nerve injury, paralysis, stroke and possible , the patient indicated that the patient understood and agreed to proceed. An informed consent document was signed by the patient, witnessed by a nurse, and placed in the patient's chart. Additionally, other treatment options including modalities, medications, and physical therapy were reviewed with the patient. After review of previous anaesthesic history and IV conscious sedation the patient was deemed safe to proceed with today?s procedure with IV conscious sedation as ASA class II designation. Safety time-out was performed to confirm patient ID, procedure to be performed and site of procedure. IV sedation was accomplished with a combination of 3mg of Versed and 50mcg of Fentanyl was administered by the RN after DO order, titrated to patient comfort during the course of the procedure while the patient remained responsive to all verbal commands In the prone position, following sterile prep and drape of the lumbar region, the L4/5 translaminar space was identified fluoroscopically. The skin was anesthetized via a 25-gauge, 1.5inch needle with 1% lidocaine solution. At this point, a 22-gauge short bevel spinal needle was atraumatically introduced and advanced under fluoroscopic guidance into the region of the L4/5 translaminar space. Depth was confirmed on lateral view. Radiological data, including multiple fluoroscopic views of the lumbar spine, reveal a spinal needle at the L4/5 translaminar space. Lateral views then show placement of the needle in the epidural space. Subsequent views show contrast material flowing superiorly and inferiorly in the epidural space. No vascular or intrathecal uptake is observed. At this point, using loss of resistance technique with saline and air, the epidural space was entered. This was confirmed following negative aspiration with injection of approximately 1.5cc of Isovue 200, showing excellent epidural flow without vascular or intrathecal uptake. At this point, 1cc of 1% lidocaine solution combined with 4cc or 20mg of dexamethasone and 12mg betamethasone was injected without incident. The patient tolerated the procedure well without signs or symptoms of complications prior to transfer to the recovery area continued monitoring without incident. The patient was then transferred to the recovery area where they were observed for an appropriate period of time after the injection. The patient reported a VAS score of 6 prior to the procedure and a post- procedure VAS of 0. POST OP INSTRUCTIONS The patient was provided a Pain Log to continue to record their response to the target-specific procedure prior to follow-up visit with their referring physician. Additionally, specific post-injection care instructions and a contact number to our office were provided if concerns arise regarding possible complications associated with the procedure are suspected.
== END 2021-02-13 11:11 | disposition home or self-care (01) ==
LOC: RAD 09:02
PROVIDERS: PCP Internal Medicine; Referring Provider Physical Medicine & Rehabilitation; Visit Provider Physical Medicine & Rehabilitation
DX: M51.16 Intervertebral disc disorders with radiculopathy, lumbar region (principal); M48.061 Spinal stenosis, lumbar region without neurogenic claudication
CPT/HCPCS: 62323; J0702; J1100; J2250; J3010

== ENCOUNTER → 2021-05-07 09:52 | Outpatient (CLI) | payer MEDICARE, MEDICAID, SELFPAY ==
[2021-05-07 11:37] LABS: COVID19 -Nasal RAPID Negative (Negative)
== END ==
PROVIDERS: PCP Internal Medicine; Visit Provider Physical Medicine & Rehabilitation
DX: Z20.822 Contact with and (suspected) exposure to COVID-19 (principal)
CPT/HCPCS: 87635; C9803

== ENCOUNTER 2021-05-08 09:36 | Outpatient (CLI) | payer MEDICARE, MEDICAID, SELFPAY ==
[2021-05-08] VITALS (9 sets, daily range): BP systolic 99–124; BP diastolic 54–65; PULSE 65–81; RESP 12–20; TEMP 36.5; O2SAT 97–100
--- NOTE | 2021-05-08 09:39 | DI.RAD.S_ITS ---
PROCEDURE: PAIN L/S FACET INJ/BLK 1ST NOEL COMPARISON: None. INDICATIONS: SPONDYLOSIS FINDINGS: A single fluoroscopic image demonstrates needles have been placed for L4-L5 and L5-S1 facet joint pain injection. IMPRESSION: Imaging guidance utilized for 2 level facet joint pain injection. Dictated by: Jeremy Sanders M.D. on 05/08/2021 at 17:54 Approved by: Jeremy Sanders M.D. on 05/08/2021 at 18:00
[2021-05-08] MEDS: MIDAZOLAM 5 MG/5 ML VIAL IV (10:12)
[2021-05-08] MEDS: fentaNYL 100 MCG/2 ML INJ 50 MCG IV (10:12)
[2021-05-08] MEDS: BETAMETHASONE 30 MG/5 ML MDV 12 MG INJ (10:15)
[2021-05-08] MEDS: LIDOCAINE 1% 20 ML 10 ML INJ (10:15)
[2021-05-08] MEDS: BUPIVACAINE 0.5% (PF) VIAL 2 ML INJ (10:15)
[2021-05-08] MEDS: IOPAMIDOL 15 ML VIAL 3 ML INJ (10:15)
--- NOTE | 2021-05-08 10:27 | P.PCN_ITS ---
Date/Time/Diagnoses Date of procedure: 05/08/21 Time of procedure: 10:27 Pre-procedure diagnosis: 1. FACET ARTHROPATHY 2. AXIAL LBP 3. MULTILEVEL DDD Post-procedure diagnosis: same Procedure Notes Procedure: 1. FLUOROSCOPICALLY GUIDED CONTRAST CONTROLLED FACET JOINT INJECTIONS BILATERAL L4/5, L5/S1 Indications: Shane is referred by Dr. Deleon for treatment of Axial LBP Physician: Garrett Corral Total Fluoroscopy time (seconds): 11 Total sedation minutes: 12 Complications: none Procedure in detail & Post-procedure care: FINDINGS Multilevel Facet Arthropathy with Clinically significant axial LBP DESCRIPTION OF PROCEDURE Fluoroscopically guided, contrast-controlled bilateral L4/5, L5/S1 facet joint injections. Following review of allergy and review of potential side effects and complications, including, but not necessarily limited to, infection, allergic reaction, local tissue breakdown, stroke, temporary or permanent nerve injury, paralysis, and possible , the patient indicated that the patient understood and agreed to proceed. An informed consent document was signed by the patient, witnessed by a nurse, and placed in the patient's chart. Additionally, other treatment options including medications, modalities, and physical therapy were reviewed with the patient. After review of previous anaesthesic history and IV conscious sedation the patient was deemed safe to proceed with today?s procedure with IV conscious sedation as ASA class II designation. Safety time-out was performed to confirm patient ID, procedure to be performed and site of procedure. IV sedation was accomplished with a combination of 3mg of Versed and 50mcg of Fentanyl was administered by the RN after DO order, titrated to patient comfort during the course of the procedure while the patient remained responsive to all verbal commands In the prone position, following sterile prep and drape of the lumbar region, the posterior aspect of the L4/5, L5/S1 facet joints were identified fluoroscopically. The skin was anesthetized via a 25-gauge 1.5inch needle with 1% lidocaine solution into the corresponding facet joints. At this point, a 22- gauge 3.5-inch spinal needle was atraumatically introduced and advanced under fluoroscopic guidance into the corresponding facet joints. Following negative aspiration, injections of approximately 0.2cc of Isovue 200 confirmed intera rticular placement without vascular uptake. The identical procedure was then performed at the L4/5, L5/S1 facet joints on the left. Radiological data, including multiple fluoroscopic views of the lumbosacral spine, reveal a spinal needle at the L4/5, L5/S1 facet joints bilaterally. Subsequent views show flow of contrast material both superiorly and inferiorly within the joint space without vascular or intrathecal uptake. At this point, a total of 0.5cc including a mixture of 0.25cc Marcaine and 0.25cc betamethasone was injected without complication into each of the corresponding facet joints. The patient tolerated the procedure well without signs or symptoms of complications prior to transfer to the recovery area continued monitoring without incident. The patient was then transferred to the recovery area where they were observed for an appropriate period of time after the injection. The patient reported a VAS score of 7 prior to the procedure and a post- procedure VAS of 0. POST OP INSTRUCTIONS The patient was provided a Pain Log to continue to record their response to the target-specific procedure prior to follow-up visit with their referring physician. Additionally, specific post-injection care instructions and a contact number to our office were provided if concerns arise regarding possible complications associated with the procedure are suspected.
== END 2021-05-08 10:52 | disposition home or self-care (01) ==
LOC: RAD 09:38
PROVIDERS: PCP Internal Medicine; Referring Provider Physical Medicine & Rehabilitation; Visit Provider Physical Medicine & Rehabilitation
DX: M47.816 Spondylosis without myelopathy or radiculopathy, lumbar region (principal); M47.817 Spondylosis without myelopathy or radiculopathy, lumbosacral region; M51.36 Other intervertebral disc degeneration, lumbar region; M51.37 Other intervertebral disc degeneration, lumbosacral region
CPT/HCPCS: 64493; 64494; 99152; J0702; J2250; J3010

== ENCOUNTER → 2021-05-19 10:53 | Outpatient (CLI) | payer MEDICARE, MEDICAID, SELFPAY ==
--- NOTE | 2021-05-19 10:59 | DI.MRI.S_ITS ---
PROCEDURE: MR SHOULDER LT WO CON INDICATIONS: PAIN IN LT. SHOULDER TECHNIQUE: Noncontrast oblique coronal T2 fast spin echo with fat saturation, oblique sagittal T1 spin echo and T2 fast spin echo with fat saturation, axial T1 spin echo and T2 fast spin echo with fat saturation through the shoulder. COMPARISON: [facility], CR, XR SHOULDER 2+ VIEWS LEFT, 05/09/2021, 8:54. FINDINGS: Image quality: Excellent. Rotator cuff: Mild T2 signal elevation throughout the supraspinatus and infraspinatus tendons at the humeral insertion sites, indicating tendinopathy. Superimposed pinhole full-thickness tear of the posterior supraspinatus tendon at the musculotendinous junction, measuring roughly 5 mm anteroposterior. Low-grade partial-thickness bursal surface tearing of the posterior supraspinatus/anterior infraspinatus tendon junction at the humeral insertion site. Low-grade partial-thickness articular surface tearing of the mid subscapularis tendon at the humeral insertion site. Teres minor is intact. No rotator cuff atrophy. Bones and bursae: No bone marrow contusions or fractures. Acromioclavicular interval is widened to 8 mm. Mild acromioclavicular joint degeneration. The acromion demonstrates conventional anatomy, without an os acromiale. No pathologic subacromial-subdeltoid or subcoracoid bursal fluid is present. Capsule and soft tissues: Labrum is grossly unremarkable. Biceps tendon is not seen. The rotator interval appears normal, without fibrosis. The coracohumeral ligament is normal in thickness. IMPRESSION: 1. Supraspinatus and infraspinatus tendinopathy. Superimposed focal full-thickness tear of the posterior supraspinatus. 2. Low-grade partial-thickness tearing of the supraspinatus/infraspinatus junction, as well as the subscapularis. 3. Acromioclavicular separation. 4. Biceps tendon tear. Dictated by: Blank Pedroza M.D. on 05/21/2021 at 8:17 Approved by: Blank Pedroza M.D. on 05/21/2021 at 8:21
== END ==
PROVIDERS: PCP Internal Medicine; Referring Provider Orthopaedic Surgery; Visit Provider Orthopaedic Surgery
DX: M75.112 Incomplete rotator cuff tear or rupture of left shoulder, not specified as traumatic (principal); S43.102A Unspecified dislocation of left acromioclavicular joint, initial encounter; S46.212A Strain of muscle, fascia and tendon of other parts of biceps, left arm, initial encounter; M19.012 Primary osteoarthritis, left shoulder; M25.512 Pain in left shoulder
CPT/HCPCS: 73221

== ENCOUNTER 2022-01-31 13:11 | Outpatient (CLI) | payer MEDICARE, MEDICAID, SELFPAY ==
[2022-01-31] VITALS (10 sets, daily range): BP systolic 101–114; BP diastolic 56–67; PULSE 69–78; RESP 14–20; TEMP 36.7; O2SAT 99–100
--- NOTE | 2022-01-31 13:14 | DI.RAD.S_ITS ---
PROCEDURE: PAIN L/S FACET INJ/BLK 1ST NOEL COMPARISON: [facility], , PAIN L/S FACET INJ/BLK 1ST NOEL, 05/08/2021, 11:16. INDICATIONS: SPONDYLOSIS FINDINGS: Fluoroscopic spot filming was performed to verify placement of spinal needles on both sides at the L4, L5, and S1 levels, as labeled on the films. Appropriate needle placement was confirmed with injection of a small amount of iodinated contrast. IMPRESSION: Intraprocedural images within normal limits. Dictated by: Patel Machado M.D. on 01/31/2022 at 17:54 Approved by: Patel Machado M.D. on 01/31/2022 at 17:55
[2022-01-31] MEDS: BUPIVACAINE 0.5% (PF) VIAL 5 ML INJ (14:02)
[2022-01-31] MEDS: IOPAMIDOL 15 ML VIAL 3 ML INJ (14:02)
[2022-01-31] MEDS: LIDOCAINE 1% 20 ML INJ (14:03)
[2022-01-31] MEDS: MIDAZOLAM 2 MG/2 ML VIAL 4 MG IV (14:06)
--- NOTE | 2022-01-31 14:17 | P.PCN_ITS ---
Date/Time/Diagnoses Date of procedure: 01/31/22 Time of procedure: 14:17 Pre-procedure diagnosis: 1. FACET ARTHROPATHY Post-procedure diagnosis: same Procedure Notes Procedure: 1. BILATERAL- L4, L5 and S1 DIAGNOSTIC MB BLOCKS with LA Anesthetic Indications: Shane is referred by Dr. Deleon for treatment of Bilateral Axial LBP. Physician: Garrett Corral Total Fluoroscopy time (seconds): 15 Total sedation minutes: 16 Complications: none Procedure in detail & Post-procedure care: DESCRIPTION OF PROCEDURE Fluoroscopically guided, contrast-controlled bilateral L4, L5 and S1 medial branch blocks with 0.5cc of 0.5% Marcaine. Following review of allergy and review of potential side effects and complications, including, but not necessarily limited to, infection, allergic reaction, local tissue breakdown, nerve injury, paralysis, stroke and possible , the patient indicated that the patient understood and agreed to proceed. An informed consent document was signed by the patient, witnessed by a nurse, and placed in the patient's chart. After review of previous anaesthesic history and IV conscious sedation the patient was deemed safe to proceed with today's procedure with IV conscious sedation as ASA class II designation. Safety time-out was performed to confirm patient ID, procedure to be performed and site of procedure. IV sedation was accomplished with a combination of 4mg of Versed was administered by the RN after DO order, titrated to patient comfort during the course of the procedure while the patient remained responsive to all verbal commands In the prone position, following sterile prep and drape of the lumbar region, the right L4, L5 and S1 anatomical location of the medial branch of the dorsal ramus was identified fluoroscopically. Subsequently an anesthetic skin wheal using 1% lidocaine solution was initiated at each of the anatomical spots. Subsequently then a 22-gauge 3.5-inch spinal needle was atraumatically introduced and advanced under fluoroscopic guidance at each of the corresponding sites at the right L4, L5 and S1 MB. After negative aspiration, 0.2cc of Isovue 200 was injected, confirming placement without vascular or intrathecal uptake. Subsequently then 0.5cc of 0.5% Marcaine solution was injected at each of the corresponding sites at the right L4, L5 and S1 medial branch locations. The identical procedure was replicated on the left. The patient tolerated the procedure well without signs or symptoms of complications prior to transfer to the recovery area continued monitoring without incident. Post-procedure, the patient was monitored initiating provocative activities to measure the amount of relief from block of the facetogenic pain. The patient reported a VAS of 7 prior to the procedure and a post-procedure VAS of 1. It has been a pleasure to assist in the diagnostic and therapeutic care of your patient. POST OP INSTRUCTIONS The patient was provided with a Pain Log to complete over the next several hours and subsequent days prior to the patient's follow up with the ordering physician. If the patient has front end engineer relief to the solution applied, then they may be a candidate for medial branch rhizotomy. The patient is aware, was provided, once again, with a Pain Log and will follow up with the referring physician for review and clinical correlation
== END 2022-01-31 14:39 | disposition home or self-care (01) ==
LOC: RAD 13:13
PROVIDERS: PCP Internal Medicine; Referring Provider Physical Medicine & Rehabilitation; Visit Provider Physical Medicine & Rehabilitation
DX: M47.816 Spondylosis without myelopathy or radiculopathy, lumbar region (principal); M47.817 Spondylosis without myelopathy or radiculopathy, lumbosacral region
CPT/HCPCS: 64493; 64494; 99152; J2250

== ENCOUNTER → 2022-02-17 13:04 | Outpatient (CLI) | payer MEDICARE, MEDICAID, SELFPAY ==
--- NOTE | 2022-02-17 14:27 | DI.MRI.S_ITS ---
PROCEDURE: MR LUMBAR SPINE WO CON INDICATIONS: Acute on Chronic LBP TECHNIQUE: Noncontrast sagittal T1 spin echo and T2 fast echo, sagittal STIR, and T2 fast spin echo through the lumbar spine. In cases with scoliosis, additional coronal T2 fast spin echo may be performed. COMPARISON: [facility], XA, PAIN L/S FACET INJ/BLK 1ST NOEL, 01/31/2022, 14:01. [facility], MR, MR LUMBAR SPINE WO CON, 05/30/2019, 12:35. FINDINGS: Image quality: Excellent. Alignment and Curvature: There is normal bony alignment. No change compared to prior MR. Bone Marrow: Marrow is of normal overall signal. No acute vertebral body compression fractures. No suspicious bone edema. Discs: Chronic and mild disc desiccation and height loss at L1-2. Disc desiccation with minor posterior height loss at L4-5 and L5-S1, stable. Spinal Cord: Conus medullaris terminates at the T12-L1 level. Visualized cord demonstrates normal signal and size. No abnormal epidural fluid collections. Paraspinous Soft Tissues: No paravertebral masses. No suspicious soft tissue abnormalities or fluid collections. T12-L1: Normal. L1-L2: Minimal circumferential disc osteophyte. No foraminal or central canal narrowing. Stable compared to prior. L2-L3: Normal. L3-L4: Mild bilateral facet arthropathy. Minimal, stable circumferential disc bulge. Stable compared to prior. L4-L5: Mild to moderate bilateral symmetric facet arthropathy and ligamentum flavum hypertrophy. Chronic, mild circumferential disc bulge with a tiny, stable central annular tear. Mild, stable central canal stenosis, lateral recess narrowing, but no nerve root displacement. No neural foraminal narrowing. L5-S1: Mild to moderate bilateral facet arthropathy. Minimal broad-based circumferential disc bulge. Facet degeneration contacts the exiting right L5 nerve root in the neural foramen. Slight progression compared to the prior study. Mild left foraminal narrowing, stable. IMPRESSION: 1. No significant changes compared to prior study from 2019. 2. There has been slight progression of neural foraminal narrowing on the right at L5-S1 secondary to facet spurring. This might be clinically significant. 3. Stable tiny posterior annular tear L4-5. Dictated by: Anna Humphrey M.D. on 02/17/2022 at 13:36 Approved by: Anna Humphrey M.D. on 02/17/2022 at 13:55
== END ==
PROVIDERS: PCP Internal Medicine; Referring Provider Physical Medicine & Rehabilitation; Visit Provider Physical Medicine & Rehabilitation
DX: M51.26 Other intervertebral disc displacement, lumbar region (principal); M48.07 Spinal stenosis, lumbosacral region; M48.061 Spinal stenosis, lumbar region without neurogenic claudication; M47.816 Spondylosis without myelopathy or radiculopathy, lumbar region; M47.817 Spondylosis without myelopathy or radiculopathy, lumbosacral region
CPT/HCPCS: 72148; A9579

== ENCOUNTER 2022-04-29 17:13 | Inpatient (IN) | payer MEDICARE, MEDICAID, SELFPAY ==
[2022-04-29] VITALS (15 sets, daily range): BP systolic 132–163; BP diastolic 65–103; PULSE 102–133; RESP 9–45; TEMP 36.9; O2SAT 97–100
[2022-04-29 18:18] LABS: INR 0.9 (0.9-1.3); Prothrombin Time 10.4 SECONDS (10.1-12.7)
[2022-04-29 18:21] LABS: Add Manual Diff / Slide Review NO; Basophils Absolute Auto 0 /uL (0-100); Basophils Percent Auto 0.1 % (0-2); Eosinophils Absolute Auto 0 /uL (0-450); Hemoglobin 13.5 g/dL (13.5-17.5); Lymphocytes Absolute Auto 700 /uL (1100-4500); Mean Corpuscular HGB Conc 32.3 % (30-36); Mean Corpuscular Hemoglobin 31.7 PG (26-34); Mean Corpuscular Volume 98.2 fL (80-100); Monocytes Absolute Auto 400 /uL (0-900); Monocytes Percent Auto 1.6 % (3-14); Neutrophils Absolute Auto 21100 /uL (1500-7000); Neutrophils Percent Auto 95.3 % (50-75); PTT Partial Thromboplastin Tim 28 SECONDS (26-36); Platelet Count 306 X10^3/uL (150-400); Red Blood Cell Count 4.27 X10^6/uL (4.5-5.9); Red Cell Distribution Width 14.2 % (11.6-14.8); White Blood Cell Count 22.1 X10^3/uL (4.5-11.0)
--- NOTE | 2022-04-29 18:26 | ED_ITS ---
HPI - GI Bleed General Chief complaint: GI Bleed Stated complaint: GI Bleed back pain Time Seen by Provider: 04/29/22 18:25 Source: patient Mode of arrival: EMS Limitations: no limitations History of Present Illness HPI Narrative: This is a 56-year-old man with history of alcohol abuse, patient states he only other medication is Seroquel for sleep. Patient does have a history of cholecystectomy, injury to repair with complications requiring colostomy and then reanastomosis after 8 months. Patient presents today after having a fall about 3 days ago he is unsure if he hit his head but states he hit his right chest and back. He states he developed right chest pain, he states he is had a headache since then. He states if he had migraines he feels like this would feel like. He denies loss of consciousness. He denies shortness of breath. Does have pain with movement. He is had nausea and vomiting for the past 2 days he noticed he is had some brown discoloration when he vomits. He denies black or bloody stools. He is had diarrhea, he denies fevers or chills. He states he feels very shaky like he is going through DTs. He is had a cough which he states has been nonproductive no bright red blood or sputum production. Patient denies other surgeries described above. He denies any daily medications. He is allergic to penicillin. He states quit smoking 4 days ago, he states he typically drinks 2-3 beers that are 24 oz daily, his last drink was earlier this morning. He denies any illicit or IV drugs. Patient states with alcohol withdrawal he has not had seizures or hallucinations in the past. Related Data Home Medications Medication Instructions Recorded Confirmed quetiapine 100 mg tablet 100 mg PO BEDTIME 12/24/21 04/29/22 Allergies Allergy/AdvReac Type Severity Reaction Status Date / Time Penicillins Allergy Severe Anaphylaxis Verified 12/24/21 08:42 Review of Systems Review of Systems ROS Unobtainable: All systems reviewed & are unremarkable except as noted in HPI and below Patient History Medical History Alcoholism Chronic back pain Degenerative disc disease Facet arthropathy, lumbar Footdrop Gait instability Hepatic steatosis Herniated nucleus pulposus, L4-5 Melanotic stools Rectal pain RUQ pain Smoker Surgical History History of colostomy reversal Status post cholecystectomy Status post exploratory laparotomy Status post rotator cuff repair Family History Other No pertinent family history in first degree relatives Social History marital status: household members: spouse Smoking Status: Current every day smoker alcohol intake: current substance use type: does not use Smoking Status: Current every day smoker alcohol intake frequency: 3 or more drinks per day Alcohol type: beer Substance Use Type: does not use Exam Narrative Exam Narrative: GEN: Patient appears in moderate distress. HEAD: No evidence of trauma, no raccoon/Arellano sign. NECK: Nontender, painless range of motion, trachea midline Positive for Nexus criteria, there is no midline line tenderness, distracting injury, altered mental status, neuro deficit, positive for recent EtOH. EYES: PERRLA, EOMI ENT: External inspection normal, trachea is midline, TM's are normal no hemotypanum, Nares are clear, no septal hematoma, no dental or oral injury, airway is normal and with normal occlusion, No bony tenderness RESP: Chest is tender on the right, patient has about a palm size area of ecchymosis on the right lateral chest. No hematoma sort of patchy. And has symmetric movement, no ecchymosis, breath sounds are normal no crackles, wheezes or rales CVS: Heart sounds are normal, no murmur noted, No JVD. Patient is tachycardic. ABG/GI: Nontender, soft, normal bowel sounds, no distention, no organomegaly, pelvic rock is negative NEURO: Oriented AOx3, neuro is grossly intact, sensation and motor is normal all 4 extremities moving, cranial nerves II through XII are intact, GCS is 1, oriana ent does have generalized tremor PSYCH: Normal mood and affect SKIN: Intact, warm and dry, no crepitus and without decubitus BACK: No CVA tenderness, no vertebral tenderness, no step-off's, no crepitus EXT: Atraumatic, hips are nontender, no pedal edema, normal color and temperature, normal range of motion of extremities with normal tendon exam, 2+ pulses in all four extremities Initial Vital Signs Initial Vital Signs: Vital Signs Temperature 98.4 F 04/29/22 17:33 Pulse Rate 127 H 04/29/22 17:33 Respiratory Rate 20 04/29/22 17:33 Blood Pressure 132/85 04/29/22 17:33 Pulse Oximetry 99 04/29/22 17:33 Oxygen Delivery Method 04/29/22 17:33 Scores GCS Randlett coma scale eye opening: Spontaneous Sallie coma scale verbal response: Orientated Randlett coma scale motor response: Obey commands Sallie coma scale total score: 15 Course Orders Ordered: Acetaminophen (Acetaminophen 325 Mg Tablet) 650 mg PO Q6H PRN PRN Reason: Fever/Mild Pain (1-3) Last Admin: 04/30/22 02:04 Dose: 650 mg Documented By: SARAH Hydrocodone Bitart/Acetaminophen (Hydrocodone/Acet 5/325 Tablet) 1 tab PO Q4HR PRN PRN Reason: Pain, Moderate (4-6) Last Admin: 04/30/22 06:27 Dose: 1 tab Documented By: Admin: 04/29/22 23:24 Dose: 1 tab Documented By: AT Folic Acid (Folic Acid 1 Mg Tablet) 1 mg PO DAILY [facility] Thiamine HCl 500 mg/ Sodium (Chloride) 105 mls @ 420 mls/hr IV TID [facility] Last Infusion: 04/30/22 01:13 Dose: 0 mls/hr Documented By: Admin: 04/29/22 22:53 Dose: 420 mls/hr Documented By: AT Metronidazole (Flagyl) 500 mg in 100 mls @ 100 mls/hr IV Q8H [facility] Last Infusion: 04/30/22 01:13 Dose: 0 mls/hr Documented By: Admin: 04/29/22 23:25 Dose: 100 mls/hr Documented By: AT Levofloxacin (Levaquin) 750 mg in 150 mls @ 100 mls/hr IV Q24H [facility] Dextrose/Sodium Chloride (Dextrose 5%-0.9% Ns) 1,000 mls @ 100 mls/hr IV CONT [facility] Last Admin: 04/30/22 02:06 Dose: 100 mls/hr Documented By: SARAH Multivitamins (Multivitamin 1 Tablet) 1 tab PO DAILY [facility] Naloxone HCl (Naloxone 0.4 Mg/Ml Vial) 0.2 mg IV Q2MIN PRN PRN Reason: Opiate Reversal Ondansetron HCl (Ondansetron 4 Mg/2 Ml Inj) 4 mg IV Q8HR PRN PRN Reason: Nausea And Vomiting Last Admin: 04/30/22 02:04 Dose: 4 mg Documented By: SARAH Pantoprazole Sodium (Pantoprazole 40 Mg Vial) 40 mg IV BID SHAINA Discontinued Medications Lactated Ringer's (Lactated Ringers) 1,000 mls @ 1,000 mls/hr IV BOLUS ONE Stop: 04/29/22 20:03 Last Infusion: 04/29/22 21:22 Dose: 0 mls/hr Documented By: Admin: 04/29/22 19:20 Dose: 1,000 mls/hr Documented By: AT Lactated Ringer's (Lactated Ringers) 2,109.21 mls @ 703.07 mls/hr 30 ml/kg infuse over 3 hr (2109.21 ml) IV NOW ONE Stop: 04/29/22 22:10 Last Infusion: 04/30/22 02:09 Dose: 0 mls/hr Documented By: Admin: 04/29/22 21:22 Dose: 703.07 mls/hr Documented By: AT Levofloxacin (Levaquin) 750 mg in 150 mls @ 100 mls/hr IV NOW ONE Stop: 04/29/22 22:14 Last Infusion: 04/29/22 23:01 Dose: 0 mls/hr Documented By: Admin: 04/29/22 21:21 Dose: 100 mls/hr Documented By: AT Lactated Ringer's (Lactated Ringers) 1,000 mls @ 125 mls/hr IV CONT SHAINA Last Admin: 04/29/22 23:08 Dose: Not Given Documented By: AT Ondansetron HCl (Ondansetron 4 Mg/2 Ml Inj) 4 mg IV NOW PRN PRN Reason: Nausea And Vomiting Last Admin: 04/29/22 19:32 Dose: 4 mg Documented By: AT Pantoprazole Sodium (Pantoprazole 40 Mg Vial) 80 mg IV NOW ONE Stop: 04/29/22 17:49 Last Admin: 04/29/22 19:31 Dose: 80 mg Documented By: AT Phenobarbital (Phenobarbital 65 Mg/Ml Vial) 260 mg IV NOW ONE Stop: 04/29/22 19:05 Last Admin: 04/29/22 19:19 Dose: 260 mg Documented By: AT Phenobarbital (Phenobarbital 65 Mg/Ml Vial) 130 mg IV NOW ONE Stop: 04/29/22 21:52 Last Admin: 04/29/22 22:53 Dose: 130 mg Documented By: AT Vital Signs Vital signs: Vital Signs - 8 hr 04/29/22 18:00 04/29/22 18:30 04/29/22 18:30 Pulse Rate 130 H 125 H Respiratory Rate 13 9 L Blood Pressure 133/77 Pulse Oximetry 99 Oxygen Delivery Method 04/29/22 19:00 04/29/22 19:00 04/29/22 19:30 Pulse Rate 133 H Respiratory Rate 22 Blood Pressure 145/103 H 145/95 H Pulse Oximetry 99 Oxygen Delivery Method Room Air 04/29/22 19:30 04/29/22 20:00 04/29/22 20:00 Pulse Rate 114 H 116 H Respiratory Rate 20 15 Blood Pressure 146/81 H Pulse Oximetry 100 100 Oxygen Delivery Method 04/29/22 20:30 04/29/22 20:30 04/29/22 21:00 Pulse Rate 113 H Respiratory Rate 45 H Blood Pressure 143/82 H 145/81 H Pulse Oximetry 100 Oxygen Delivery Method 04/29/22 21:00 Pulse Rate 116 H Respiratory Rate 17 Blood Pressure Pulse Oximetry 97 Oxygen Delivery Method MDM - GI Bleed Lab Data Result diagrams: 04/30/22 05:57 04/30/22 05:57 Labs: Lab Results 04/29/22 04/29/22 04/29/22 Range/Units 17:30 17:30 17:30 WBC 22.1 H (4.5-11.0) X10^3/uL RBC 4.27 L (4.5-5.9) X10^6/uL Hgb 13.5 (13.5-17.5) g/dL Hct 42.0 (41-53) % MCV 98.2 (80-100) fL MCH 31.7 (26-34) PG MCHC 32.3 (30-36) % RDW 14.2 (11.6-14.8) % Plt Count 306 (150-400) X10^3/uL Neut % (Auto) 95.3 H (50-75) % Lymph % (Auto) 3.0 L (25-40) % [place] % (Auto) 1.6 L (3-14) % Eos % (Auto) 0.0 L (2-4) % Baso % (Auto) 0.1 (0-2) % Neut # (Auto) 90877 H (3741-3285) /uL Lymph # (Auto) 700 L (6505-8537) /uL [place] # (Auto) 400 (0-900) /uL Eos # (Auto) 0 (0-450) /uL Baso # (Auto) 0 (0-100) /uL PT 10.4 (10.1-12.7) SECONDS INR 0.9 (0.9-1.3) APTT 28 (26-36) SECONDS Sodium 143 (137-145) mmol/L Potassium 5.0 (3.4-5.1) mmol/L Chloride 101 (98-107) mmol/L Carbon Dioxide 10 L (22-32) mmol/L BUN 12 (9-20) mg/dL Creatinine 1.11 (0.66-1.25) mg/dL Estimated GFR > 60 (>60) mL/min BUN/Creatinine Ratio 10.8 (6-22) Glucose 115 H (70-100) mg/dL Lactate (0.7-2.1) mmol/L Calcium 8.4 (8.4-10.2) mg/dL Phosphorus (2.5-4.5) mg/dL Magnesium (1.6-2.3) mg/dL Total Bilirubin 0.8 (0.2-1.3) mg/dL AST 87 H (17-59) IU/L ALT 36 (<50) IU/L Alkaline Phosphatase 130 H (38-126) U/L Total Protein 8.2 (6.3-8.2) g/dL Albumin 4.7 (3.5-5.0) g/dL Globulin 3.5 (1.7-4.1) g/dL Albumin/Globulin Ratio 1.3 (1.0-2.8) Procalcitonin (<0.5) ng/mL TSH (0.47-4.68) uIU/mL Urine RBC (0-5/HPF) Urine WBC (0-5/HPF) Ur Transition Epith Cell (0-5/HPF) Amorphous Sediment Urine Bacteria (None) Hyaline Casts (None) Ur Culture Indicated? U Opiates 300ng/mL cut (Negative) Ur Oxycodone Screen (Negative) Urine Methadone Screen (Negative) Ur Barbiturates Screen (Negative) U Tricyclic Antidepress (Negative) Ur Phencyclidine Scrn (Negative) Ur Amphetamines Screen (Negative) U Methamphetamines Scrn (Negative) Ur MDMA Scrn (Ecstasy) (Negative) U Benzodiazepines Scrn (Negative) Urine Cocaine Screen (Negative) U Marijuana (THC) Screen (Negative) Ethyl Alcohol ( - 10) mg/dL Ketones (<0.27) mmol/L Blood Type Antibody Screen 04/29/22 04/29/22 04/29/22 Range/Units 17:30 17:30 17:30 WBC (4.5-11.0) X10^3/uL RBC (4.5-5.9) X10^6/uL Hgb (13.5-17.5) g/dL Hct (41-53) % MCV (80-100) fL MCH (26-34) PG MCHC (30-36) % RDW (11.6-14.8) % Plt Count (150-400) X10^3/uL Neut % (Auto) (50-75) % Lymph % (Auto) (25-40) % [place] % (Auto) (3-14) % Eos % (Auto) (2-4) % Baso % (Auto) (0-2) % Neut # (Auto) (4250-6746) /uL Lymph # (Auto) (9115-9449) /uL [place] # (Auto) (0-900) /uL Eos # (Auto) (0-450) /uL Baso # (Auto) (0-100) /uL PT (10.1-12.7) SECONDS INR (0.9-1.3) APTT (26-36) SECONDS Sodium (137-145) mmol/L Potassium (3.4-5.1) mmol/L Chloride (98-107) mmol/L Carbon Dioxide (22-32) mmol/L BUN (9-20) mg/dL Creatinine (0.66-1.25) mg/dL Estimated GFR (>60) mL/min BUN/Creatinine Ratio (6-22) Glucose (70-100) mg/dL Lactate 7.0 H* (0.7-2.1) mmol/L Calcium (8.4-10.2) mg/dL Phosphorus (2.5-4.5) mg/dL Magnesium (1.6-2.3) mg/dL Total Bilirubin (0.2-1.3) mg/dL AST (17-59) IU/L ALT (<50) IU/L Alkaline Phosphatase (38-126) U/L Total Protein (6.3-8.2) g/dL Albumin (3.5-5.0) g/dL Globulin (1.7-4.1) g/dL Albumin/Globulin Ratio (1.0-2.8) Procalcitonin 0.31 (<0.5) ng/mL TSH (0.47-4.68) uIU/mL Urine RBC (0-5/HPF) Urine WBC (0-5/HPF) Ur Transition Epith Cell (0-5/HPF) Amorphous Sediment Urine Bacteria (None) Hyaline Casts (None) Ur Culture Indicated? U Opiates 300ng/mL cut (Negative) Ur Oxycodone Screen (Negative) Urine Methadone Screen (Negative) Ur Barbiturates Screen (Negative) U Tricyclic Antidepress (Negative) Ur Phencyclidine Scrn (Negative) Ur Amphetamines Screen (Negative) U Methamphetamines Scrn (Negative) Ur MDMA Scrn (Ecstasy) (Negative) U Benzodiazepines Scrn (Negative) Urine Cocaine Screen (Negative) U Marijuana (THC) Screen (Negative) Ethyl Alcohol ( - 10) mg/dL Ketones (<0.27) mmol/L Blood Type O Negative Antibody Screen Negative 04/29/22 04/29/22 04/29/22 Range/Units 17:30 17:30 17:30 WBC (4.5-11.0) X10^3/uL RBC (4.5-5.9) X10^6/uL Hgb (13.5-17.5) g/dL Hct (41-53) % MCV (80-100) fL MCH (26-34) PG MCHC (30-36) % RDW (11.6-14.8) % Plt Count (150-400) X10^3/uL Neut % (Auto) (50-75) % Lymph % (Auto) (25-40) % [place] % (Auto) (3-14) % Eos % (Auto) (2-4) % Baso % (Auto) (0-2) % Neut # (Auto) (2443-4857) /uL Lymph # (Auto) (0028-8627) /uL [place] # (Auto) (0-900) /uL Eos # (Auto) (0-450) /uL Baso # (Auto) (0-100) /uL PT (10.1-12.7) SECONDS INR (0.9-1.3) APTT (26-36) SECONDS Sodium (137-145) mmol/L Potassium (3.4-5.1) mmol/L Chloride (98-107) mmol/L Carbon Dioxide (22-32) mmol/L BUN (9-20) mg/dL Creatinine (0.66-1.25) mg/dL Estimated GFR (>60) mL/min BUN/Creatinine Ratio (6-22) Glucose (70-100) mg/dL Lactate (0.7-2.1) mmol/L Calcium (8.4-10.2) mg/dL Phosphorus 4.2 (2.5-4.5) mg/dL Magnesium 2.2 (1.6-2.3) mg/dL Total Bilirubin (0.2-1.3) mg/dL AST (17-59) IU/L ALT (<50) IU/L Alkaline Phosphatase (38-126) U/L Total Protein (6.3-8.2) g/dL Albumin (3.5-5.0) g/dL Globulin (1.7-4.1) g/dL Albumin/Globulin Ratio (1.0-2.8) Procalcitonin (<0.5) ng/mL TSH 0.57 (0.47-4.68) uIU/mL Urine RBC (0-5/HPF) Urine WBC (0-5/HPF) Ur Transition Epith Cell (0-5/HPF) Amorphous Sediment Urine Bacteria (None) Hyaline Casts (None) Ur Culture Indicated? U Opiates 300ng/mL cut (Negative) Ur Oxycodone Screen (Negative) Urine Methadone Screen (Negative) Ur Barbiturates Screen (Negative) U Tricyclic Antidepress (Negative) Ur Phencyclidine Scrn (Negative) Ur Amphetamines Screen (Negative) U Methamphetamines Scrn (Negative) Ur MDMA Scrn (Ecstasy) (Negative) U Benzodiazepines Scrn (Negative) Urine Cocaine Screen (Negative) U Marijuana (THC) Screen (Negative) Ethyl Alcohol ( - 10) mg/dL Ketones 9.75 H (<0.27) mmol/L Blood Type Antibody Screen 04/29/22 04/29/22 04/29/22 Range/Units 17:55 18:00 18:00 WBC (4.5-11.0) X10^3/uL RBC (4.5-5.9) X10^6/uL Hgb (13.5-17.5) g/dL Hct (41-53) % MCV (80-100) fL MCH (26-34) PG MCHC (30-36) % RDW (11.6-14.8) % Plt Count (150-400) X10^3/uL Neut % (Auto) (50-75) % Lymph % (Auto) (25-40) % [place] % (Auto) (3-14) % Eos % (Auto) (2-4) % Baso % (Auto) (0-2) % Neut # (Auto) (0271-2793) /uL Lymph # (Auto) (0113-4089) /uL [place] # (Auto) (0-900) /uL Eos # (Auto) (0-450) /uL Baso # (Auto) (0-100) /uL PT (10.1-12.7) SECONDS INR (0.9-1.3) APTT (26-36) SECONDS Sodium (137-145) mmol/L Potassium (3.4-5.1) mmol/L Chloride (98-107) mmol/L Carbon Dioxide (22-32) mmol/L BUN (9-20) mg/dL Creatinine (0.66-1.25) mg/dL Estimated GFR (>60) mL/min BUN/Creatinine Ratio (6-22) Glucose (70-100) mg/dL Lactate (0.7-2.1) mmol/L Calcium (8.4-10.2) mg/dL Phosphorus (2.5-4.5) mg/dL Magnesium (1.6-2.3) mg/dL Total Bilirubin (0.2-1.3) mg/dL AST (17-59) IU/L ALT (<50) IU/L Alkaline Phosphatase (38-126) U/L Total Protein (6.3-8.2) g/dL Albumin (3.5-5.0) g/dL Globulin (1.7-4.1) g/dL Albumin/Globulin Ratio (1.0-2.8) Procalcitonin (<0.5) ng/mL TSH (0.47-4.68) uIU/mL Urine RBC 0-1/hpf (0-5/HPF) Urine WBC None seen (0-5/HPF) Ur Transition Epith Cell 0-1/hpf (0-5/HPF) Amorphous Sediment 1+ Urine Bacteria None seen (None) Hyaline Casts 0-1/lpf (None) Ur Culture Indicated? Cult not indicated U Opiates 300ng/mL cut Negative (Negative) Ur Oxycodone Screen Positive H (Negative) Urine Methadone Screen Negative (Negative) Ur Barbiturates Screen Negative (Negative) U Tricyclic Antidepress Negative (Negative) Ur Phencyclidine Scrn Negative (Negative) Ur Amphetamines Screen Negative (Negative) U Methamphetamines Scrn Negative (Negative) Ur MDMA Scrn (Ecstasy) Negative (Negative) U Benzodiazepines Scrn Positive H (Negative) Urine Cocaine Screen Negative (Negative) U Marijuana (THC) Screen Negative (Negative) Ethyl Alcohol 190 H ( - 10) mg/dL Ketones (<0.27) mmol/L Blood Type Antibody Screen Urine Dip Bedside Urine Glucose Negative Bedside Urine Bilirubin - Negative Bedside Urine Ketone +++ 80 Urine Specific Valentine 1.030 Bedside Urine Occult Blood - Negative Bedside Urine pH 6.0 Bedside Urine Protein + 30 Bedside Urine Urobilinogen - Negative Bedside Urine Nitrite - Negative Bedside Urine Leukocytes - Negative Esterase Imaging Data CT scan - head: Radiologist's Impression: Shane Antunez??56??M??1965 ? Allergy/Adv: Penicillins Close Head CT (Signed) Dario Estrella - 04/29/22 Chest/Abdomen/Pelvis CT (Signed) Dario Estrella - 04/29/[address] (Signed) Dario Estrella - 04/29/22 Lumbar Spine MRI (Signed) Anna Humphrey - 02/17/22 Facet Joint Injection X-Ray (Signed) Patel Machado - 01/31/22 Shoulder MRI (Signed) Blank Pedroza - 05/19/21 Facet Joint Injection X-Ray (Signed) Jeremy Sanders - 05/08/21 Injection Lumbar, Sacrum (Signed) Patel Machado - 02/13/21 Hip X-Ray (Signed) Janes Daniels - 02/06/21 Abdomen Ultrasound (Signed) Cayetano Scott - 02/06/21 Injection Lumbar, Sacrum (Signed) Pedro Mcdaniel - 10/05/20 Abdomen/Pelvis CT (Signed) AniMariya - 06/27/20 Injection Lumbar, Sacrum (Signed) Patel Machado - 06/08/20 Lumbar Spine X-Ray (Signed) Pedro Mcdaniel - 05/17/20 Hip X-Ray (Signed) Jeremy Sanders - 06/10/19 Lumbar Spine MRI (Signed) Erma Jewell - 05/30/19 Abdomen/Pelvis CT (Signed) YovanyCarlos Albertoted - 01/05/19 Lumbar Spine X-Ray (Signed) Patel Machado - 12/26/18 Lumbar Spine MRI (Signed) Jeremy Sanders - 12/26/18 Hip X-Ray (Signed) Patel Machado - 12/26/18 Knee MRI (Signed) Pedro Mcdaniel - 09/17/18 Knee X-Ray (Signed) Erma Jewell - 06/03/18 Launch?[place] [address] CT Scan Report Signed Patient: Shane Antunez MR#: [id number] : 1965 Acct:[id number] Age/Sex: 56 / M Date of Service: 04/29/22 Loc: ED Accession Number: [id number] ?? Procedure: CT head/brain wo con Ordering Provider: Narcisa Owens D.O. PROCEDURE:? CT HEAD/BRAIN WO CON ? INDICATIONS:? etoh withdrawls, falls, bruising chest, guerrero, vomiting ? TECHNIQUE:? Noncontrast 4.5 mm thick angled axial sections acquired from the foramen magnum to the vertex, with coronal and sagittal reformats.? For radiation dose reduction, the following was used:? automated exposure control, adjustment of mA and/or kV according to patient size.? ? COMPARISON:? None. ? FINDINGS:? Image quality:? Excellent.? ? CSF spaces:? Basal cisterns are patent.? No extra-axial fluid collections.? There is mild cerebral volume loss, with resultant ventricular and sulcal prominence as well as prominence of the extra-axial spaces along the frontal lobes.? ? Brain:? No intracranial hemorrhage, mass, or mass effect.? There are subcortical, periventricular and deep white matter hypodensities consistent with mild chronic small vessel ischemic changes.? The amin-white matter junction appears preserved.? There is intracranial internal carotid artery atherosclerosis.? ? Skull and face:? Calvarium and visualized facial bones are intact, without suspicious lesions.? ? Sinuses:? Visualized sinuses and mastoids are clear.? ? IMPRESSION:? ? 1. No acute intracranial abnormality. ? 2. Mild chronic white matter small vessel ischemic changes and cerebral volume loss.? ? ? Dictated by: Dario Estrella M.D. on 04/29/2022 at 20:02 ? ? Approved by: Dario Estrella M.D. on 04/29/2022 at 20:08? CT - cervical spine: Radiologist's Impression: Shane Antunez??56??M??1965 ? Allergy/Adv: Penicillins Close Head CT (Signed) Dario Estrella - 04/29/22 Chest/Abdomen/Pelvis CT (Signed) Dario Estrella - 04/29/[address] (Signed) Dario Estrella - 04/29/22 Lumbar Spine MRI (Signed) Anna Humphrey - 02/17/22 Facet Joint Injection X-Ray (Signed) Patel Machado - 01/31/22 Shoulder MRI (Signed) Blank Pedroza - 05/19/21 Facet Joint Injection X-Ray (Signed) Jeremy Sanders - 05/08/21 Injection Lumbar, Sacrum (Signed) Patel Machado - 02/13/21 Hip X-Ray (Signed) Janes Daniels - 02/06/21 Abdomen Ultrasound (Signed) Cayetano Scott - 02/06/21 Injection Lumbar, Sacrum (Signed) Pedro Mcdaniel - 10/05/20 Abdomen/Pelvis CT (Signed) Mariya Law - 06/27/20 Injection Lumbar, Sacrum (Signed) Lulu Machadoe - 06/08/20 Lumbar Spine X-Ray (Signed) Pedro Mcdaniel - 05/17/20 Hip X-Ray (Signed) Jeremy Sanders - 06/10/19 Lumbar Spine MRI (Signed) Erma Jewell - 05/30/19 Abdomen/Pelvis CT (Signed) Blank Pedroza - 01/05/19 Lumbar Spine X-Ray (Signed) CarterPatel - 12/26/18 Lumbar Spine MRI (Signed) Jeremy Sanders - 12/26/18 Hip X-Ray (Signed) HonoravillePatel - 12/26/18 Knee MRI (Signed) Pedro Mcdaniel - 09/17/18 Knee X-Ray (Signed) TylerectorErma - 06/03/18 Launch?[place] [address] CT Scan Report Signed Patient: Shane Antunez MR#: [id number] : 1965 Acct:[id number] Age/Sex: 56 / M Date of Service: 04/29/22 Loc: ED Accession Number: [id number] ?? Procedure: CT cervical spine wo con Ordering Provider: Narcisa Owens D.O. PROCEDURE:? CT CERVICAL SPINE WO CON ? INDICATIONS:? etoh withdrawls, falls, bruising chest, guerrero, vomiting ? TECHNIQUE:? Noncontrast 3 mm thick sections acquired from the skull base to the T4 level.? Sagittal and coronal reformats were then constructed.? For radiation dose reduction, the following was used:? automated exposure control, adjustment of mA and/or kV according to patient size.? ? COMPARISON:? None. ? FINDINGS:? Image quality:? Excellent.? ? Bones:? No acute fractures or subluxation.? There is minimal anterolisthesis at C4-C5 with slight reversal the cervical lordosis.? Moderate degenerative disc disease present at C5-C6 with endplate sclerosis and osteophytosis.? There is mild multilevel facet joint arthropathy.? Visualized superior ribs are intact.? ? Soft tissues:? Prevertebral soft tissues are normal in thickness.? No paravertebral hematomas.? No apical pneumothoraces.? ? IMPRESSION:? ? 1. No acute fracture or subluxation. ? ? Dictated by: Dario Estrella M.D. on 04/29/2022 at 20:08 ? ? Approved by: Dario Estrella M.D. on 04/29/2022 at 20:17?? CT chest/abd/pelvis: Radiologist's Impression: Close Head CT (Signed) Dario Estrella - 04/29/22 Chest/Abdomen/Pelvis CT (Signed) Dario Estrella - 04/29/[address] (Signed) Dario Estrella - 04/29/22 Lumbar Spine MRI (Signed) Anna Humphrey - 02/17/22 Facet Joint Injection X-Ray (Signed) Patel Machado - 01/31/22 Shoulder MRI (Signed) Blank Pedroza - 05/19/21 Facet Joint Injection X-Ray (Signed) Jeremy Sanders - 05/08/21 Injection Lumbar, Sacrum (Signed) Patel Machado - 02/13/21 Hip X-Ray (Signed) Janes Daniels - 02/06/21 Abdomen Ultrasound (Signed) Cayetano Scott - 02/06/21 Injection Lumbar, Sacrum (Signed) Pedro Mcdaniel - 10/05/20 Abdomen/Pelvis CT (Signed) Mariya Law - 06/27/20 Injection Lumbar, Sacrum (Signed) Patel Machado - 06/08/20 Lumbar Spine X-Ray (Signed) Pedro Mcdaniel - 05/17/20 Hip X-Ray (Signed) Jeremy Sanders - 06/10/19 Lumbar Spine MRI (Signed) Erma Jewell - 05/30/19 Abdomen/Pelvis CT (Signed) Blank Pedroza - 01/05/19 Lumbar Spine X-Ray (Signed) Patel Machado - 12/26/18 Lumbar Spine MRI (Signed) Jeremy Sanders - 12/26/18 Hip X-Ray (Signed) Paetl Machado - 12/26/18 Knee MRI (Signed) Pedro Mcdaniel - 09/17/18 Knee X-Ray (Signed) Erma Jewell - 06/03/[address] [place] [address] [address] Scan Report Signed Patient: Shane Antunez MR#: [id number] : 1965 Acct:[id number] Age/Sex: 56 / M Date of Service: 04/29/22 Loc: ED Accession Number: [id number] ?? Procedure: CT chest abd pel w con Ordering Provider: Narcisa Owens D.O. PROCEDURE:? CT CHEST ABD PEL W CON ? INDICATIONS:? etoh withdrawls, falls, bruising chest, guerrero, vomiting ? TECHNIQUE:? After the administration of intravenous contrast, 5 mm thick sections acquired from the lung apices to the symphysis.? 2.5 mm thick coronal and sagittal reformats were acquired. ?Additional 7 mm thick coronal maximum intensity projection (MIP) reformats acquired through the lungs.? Optional 10-minute delayed imaging may be performed from the kidneys to the bladder.? For radiation dose reduction, the following was used:? automated exposure control, adjustment of mA and/or kV according to patient size.? ? COMPARISON:? None. ? FINDINGS:? Image quality:? Excellent.? ? CHEST: Lower Neck: No lymphadenopathy by size criteria. Thyroid:? Visualized thyroid demonstrates no discrete nodules. Axillae: No lymphadenopathy by size criteria. Chest Wall:? Unremarkable.? Bones:? No acute fractures identified. ? Lungs and Airways:? No pulmonary contusions or lacerations.? No acute consolidation.? The trachea and central airways are patent. Pleura: No pneumothorax or pleural effusions.? There is pleural-parenchymal thickening consistent with scarring in the lung apices. ? Heart: Heart size is normal.? No pericardial effusion. Thoracic Vessels: The aorta and pulmonary arteries are normal in size.? Mediastinum and Brittany: No lymphadenopathy by size criteria.? No definite mediastinal hematomas.? Esophagus:? There is mild concentric esophageal wall thickening.? No hiatal hernia. ? ABDOMEN: Liver:? No hepatic lacerations or perihepatic fluid collections.? There is diffuse hypoattenuation of the liver consistent with fatty infiltration. Gallbladder:? Surgically absent. Biliary ducts:? No biliary ductal dilatation.? ? Pancreas:? Unremarkable.? ? Spleen:? Normal in size.? No splenic lacerations or perisplenic fluid collections. ? Adrenal Glands:? No adrenal nodules.? ? Kidneys and Ureters:? No hydronephrosis.? ? ? Stomach and Bowel:? Stomach and small bowel loops are normal in caliber and wall thickness.? The appendix is normal in appearance.? Surgical sutures are present in the sigmoid colon.? There is diffuse mild colonic wall thickening and mucosal enhancement compatible with an infectious or inflammatory colitis.? ? Peritoneum:? No abnormal intraperitoneal fluid.? No free air.? ? Ventral Wall: ? No hernia.? Abdominal Nodes:? No retroperitoneal or mesenteric adenopathy by size criteria.? Vessels:? Aorta and inferior vena cava are normal in size.? ? PELVIS: Pelvic Organs:? Unremarkable.? ? Bladder:? Unremarkable.? ? Pelvic Nodes: No enlarged lymph nodes.? Miscellaneous: No inguinal hernias are seen. ? ? ? Bones:? No acute fractures identified.? Visualized osseous structures demonstrate no suspicious focal lesions. ? IMPRESSION:? ? 1. No acute traumatic abnormality within the chest, abdomen, or pelvis. ? 2. Diffuse mild esophageal wall thickening consistent with a nonspecific esophagitis. ? 3. Diffuse mild wall thickening throughout the colon consistent with an infectious or inflammatory colitis. ? 4. Hepatic steatosis.? ? ? Dictated by: Dario Estrella M.D. on 04/29/2022 at 20:17 ? ? Approved by: Dario Estrella M.D. on 04/29/2022 at 20:29?? ECG Data Attestation: I personally reviewed and interpreted this ECG as follows: Interpretation: Sinus tachycardia rate of 130 WV 140 QRS 80 QTC 429. No acute ST elevation depression noted. MDM Narrative Medical decision making narrative: This is a 56-year-old male who presents with complaint of fall 3 days ago, persistent headache, bruising on his right chest and chest pain, nausea and vomiting for the past 2 days possible brown emesis or coffee-ground. And alcohol withdrawals. Patient may have sepsis versus reactive changed alcohol withdrawal he is tachycardic, has tremors, he is afebrile but has not elevated white count at 22, platelets of 306, patient has a lactate of 7, procalcitonin still pending. Renal function electrolytes are relatively normal except for CO2 of 10 consistent with his elevated lactate. AST ALT bilirubin normal. Urine does not show signs fraction, alcohol is 190. Patient is positive for benzodiazepines and oxycodone. Patient need CT of the head C-spine chest a bdomen pelvis trauma protocol, fluids, phenobarb for alcohol withdrawal, Protonix for free GI bleed and reassessment as well as repeat lactate. Head CT, and CT C-spine shows no acute change. CT chest abdomen pelvis shows no traumatic abnormality mild esophageal wall thickening with nonspecific eso phagitis and mild wall thickening of the colon consistent with infectious or inflammatory colitis. Spoke with Dr. King accepts for admission, patient currently is ICU status. Heart rate somewhat improving. Lactate was improving to 4 on recheck. Suspected that a lot of his changes are secondary to alcohol withdrawal but was covered a dose of Levaquin based on possible colitis changes and did meet septic criteria. Critical Care Time Critical Care Time Critical Care Time: Yes Total Critical Care Time: 40 Attestation: The high probability of a clinically significant, sudden or life threatening deterioration of the [cardiac, neuro] system(s) required my full and direct attention, intervention and personal management. The aggregate critical care time was [] minutes. This time is in addition to time spent performing reported procedures but includes the following: [x] Data Review and interpretation [x] Patient assessment and monitoring of vital signs [x] Documentation [x] Medication orders and management Discharge Plan Departure Patient Disposition: Admitted As Inpatient Clinical Impression: Alcohol abuse with withdrawal, Traumatic ecchymosis of right thoracic region Admit Date/Time: 04/29/22 21:18 Admit Provider: Caden King
[2022-04-29 18:34] LABS: Alanine Aminotransferase 36 IU/L (<50); Albumin 4.7 g/dL (3.5-5.0); Albumin Globulin Ratio 1.3 (1.0-2.8); Alkaline Phosphatase 130 U/L (38-126); Aspartate Aminotransferase 87 IU/L (17-59); BUN Creatinine Ratio 10.8 (6-22); Bilirubin Total 0.8 mg/dL (0.2-1.3); Blood Urea Nitrogen 12 mg/dL (9-20); Calcium 8.4 mg/dL (8.4-10.2); Carbon Dioxide 10 mmol/L (22-32); Chloride 101 mmol/L (98-107); Estimated Glomerular Filt Rate > 60 mL/min (>60); Globulin 3.5 g/dL (1.7-4.1); Glucose 115 mg/dL (70-100); Sodium 143 mmol/L (137-145); Total Protein 8.2 g/dL (6.3-8.2)
[2022-04-29 18:35] LABS: HEMOLYSIS 67 (0-50)
[2022-04-29 18:43] LABS: Ethanol (ETOH) 190 mg/dL
[2022-04-29 18:45] LABS: UR Morphine/Opiate cutoff 300 Negative (Negative); Ur Creatinine Normal (Normal); Ur Specific Gravity Normal (Normal); Urine Amphetamines Negative (Negative); Urine Barbiturates Negative (Negative); Urine Benzodiazepines Positive (Negative); Urine Cocaine Negative (Negative); Urine MDMA Negative (Negative); Urine Methadone Negative (Negative); Urine Methamphetamines Negative (Negative); Urine Oxycodone Positive (Negative); Urine Phencyclidine Negative (Negative); Urine Tetrahydrocannabinol Negative (Negative); Urine Tricyclic Antidepressant Negative (Negative); Urine pH Normal (Normal)
[2022-04-29 18:57] LABS: Amorphous Sediment Urine 1+; Bacteria Urine None Seen; Culture Indicated Urine Cult Not Indicated; Hyaline Casts Urine 0-1/LPF; RBC Urine 0-1/HPF (0-5/HPF); Transitional Epi Cells Urine 0-1/HPF (0-5/HPF); WBC Urine None Seen (0-5/HPF)
--- NOTE | 2022-04-29 19:02 | DI.CT.S_ITS ---
PROCEDURE: CT CHEST ABD PEL W CON INDICATIONS: etoh withdrawls, falls, bruising chest, guerrero, vomiting TECHNIQUE: After the administration of intravenous contrast, 5 mm thick sections acquired from the lung apices to the symphysis. 2.5 mm thick coronal and sagittal reformats were acquired. Additional 7 mm thick coronal maximum intensity projection (MIP) reformats acquired through the lungs. Optional 10-minute delayed imaging may be performed from the kidneys to the bladder. For radiation dose reduction, the following was used: automated exposure control, adjustment of mA and/or kV according to patient size. COMPARISON: None. FINDINGS: Image quality: Excellent. CHEST: Lower Neck: No lymphadenopathy by size criteria. Thyroid: Visualized thyroid demonstrates no discrete nodules. Axillae: No lymphadenopathy by size criteria. Chest Wall: Unremarkable. Bones: No acute fractures identified. Lungs and Airways: No pulmonary contusions or lacerations. No acute consolidation. The trachea and central airways are patent. Pleura: No pneumothorax or pleural effusions. There is pleural-parenchymal thickening consistent with scarring in the lung apices. Heart: Heart size is normal. No pericardial effusion. Thoracic Vessels: The aorta and pulmonary arteries are normal in size. Mediastinum and Brittany: No lymphadenopathy by size criteria. No definite mediastinal hematomas. Esophagus: There is mild concentric esophageal wall thickening. No hiatal hernia. ABDOMEN: Liver: No hepatic lacerations or perihepatic fluid collections. There is diffuse hypoattenuation of the liver consistent with fatty infiltration. Gallbladder: Surgically absent. Biliary ducts: No biliary ductal dilatation. Pancreas: Unremarkable. Spleen: Normal in size. No splenic lacerations or perisplenic fluid collections. Adrenal Glands: No adrenal nodules. Kidneys and Ureters: No hydronephrosis. Stomach and Bowel: Stomach and small bowel loops are normal in caliber and wall thickness. The appendix is normal in appearance. Surgical sutures are present in the sigmoid colon. There is diffuse mild colonic wall thickening and mucosal enhancement compatible with an infectious or inflammatory colitis. Peritoneum: No abnormal intraperitoneal fluid. No free air. Ventral Wall: No hernia. Abdominal Nodes: No retroperitoneal or mesenteric adenopathy by size criteria. Vessels: Aorta and inferior vena cava are normal in size. PELVIS: Pelvic Organs: Unremarkable. Bladder: Unremarkable. Pelvic Nodes: No enlarged lymph nodes. Miscellaneous: No inguinal hernias are seen. Bones: No acute fractures identified. Visualized osseous structures demonstrate no suspicious focal lesions. IMPRESSION: 1. No acute traumatic abnormality within the chest, abdomen, or pelvis. 2. Diffuse mild esophageal wall thickening consistent with a nonspecific esophagitis. 3. Diffuse mild wall thickening throughout the colon consistent with an infectious or inflammatory colitis. 4. Hepatic steatosis. Dictated by: Dario Estrella M.D. on 04/29/2022 at 20:17 Approved by: Dario Estrella M.D. on 04/29/2022 at 20:29
--- NOTE | 2022-04-29 19:02 | DI.CT.S_ITS ---
PROCEDURE: CT HEAD/BRAIN WO CON INDICATIONS: etoh withdrawls, falls, bruising chest, guerrero, vomiting TECHNIQUE: Noncontrast 4.5 mm thick angled axial sections acquired from the foramen magnum to the vertex, with coronal and sagittal reformats. For radiation dose reduction, the following was used: automated exposure control, adjustment of mA and/or kV according to patient size. COMPARISON: None. FINDINGS: Image quality: Excellent. CSF spaces: Basal cisterns are patent. No extra-axial fluid collections. There is mild cerebral volume loss, with resultant ventricular and sulcal prominence as well as prominence of the extra-axial spaces along the frontal lobes. Brain: No intracranial hemorrhage, mass, or mass effect. There are subcortical, periventricular and deep white matter hypodensities consistent with mild chronic small vessel ischemic changes. The amin-white matter junction appears preserved. There is intracranial internal carotid artery atherosclerosis. Skull and face: Calvarium and visualized facial bones are intact, without suspicious lesions. Sinuses: Visualized sinuses and mastoids are clear. IMPRESSION: 1. No acute intracranial abnormality. 2. Mild chronic white matter small vessel ischemic changes and cerebral volume loss. Dictated by: Dario Estrella M.D. on 04/29/2022 at 20:02 Approved by: Dario Estrella M.D. on 04/29/2022 at 20:08
--- NOTE | 2022-04-29 19:02 | DI.CT.S_ITS ---
PROCEDURE: CT CERVICAL SPINE WO CON INDICATIONS: etoh withdrawls, falls, bruising chest, guerrero, vomiting TECHNIQUE: Noncontrast 3 mm thick sections acquired from the skull base to the T4 level. Sagittal and coronal reformats were then constructed. For radiation dose reduction, the following was used: automated exposure control, adjustment of mA and/or kV according to patient size. COMPARISON: None. FINDINGS: Image quality: Excellent. Bones: No acute fractures or subluxation. There is minimal anterolisthesis at C4-C5 with slight reversal the cervical lordosis. Moderate degenerative disc disease present at C5-C6 with endplate sclerosis and osteophytosis. There is mild multilevel facet joint arthropathy. Visualized superior ribs are intact. Soft tissues: Prevertebral soft tissues are normal in thickness. No paravertebral hematomas. No apical pneumothoraces. IMPRESSION: 1. No acute fracture or subluxation. Dictated by: Dario Estrella M.D. on 04/29/2022 at 20:08 Approved by: Dario Estrella M.D. on 04/29/2022 at 20:17
[2022-04-29] MEDS: PHENobarbital 65 MG/ML VIAL 260 MG IV (19:19)
[2022-04-29] MEDS: LACTATED RINGERS 1,000 ML 1000 ML IV (19:20)
[2022-04-29 19:23] LABS: Procalcitonin 0.31 ng/mL (<0.5)
[2022-04-29] MEDS: PANTOPRAZOLE 40 MG VIAL 80 MG IV (19:31)
[2022-04-29] MEDS: ONDANSETRON 4 MG/2 ML INJ IV (19:32)
[2022-04-29 20:44] LABS: Reflexed Lactate in 2 Hours Y
[2022-04-29] MEDS: levoFLOXacin 750 MG/150 ML PIGGYBACK 100 MG IV (21:21)
[2022-04-29 21:22] LABS: Ketones (Beta-Hydroxybutyrate) 9.75 mmol/L (<0.27)
[2022-04-29] MEDS: LACTATED RINGERS 2,109.21 ML 703.07 ML IV (21:22)
[2022-04-29 21:51] LABS: Magnesium 2.2 mg/dL (1.6-2.3); Phosphorous 4.2 mg/dL (2.5-4.5)
[2022-04-29 22:04] LABS: Lactate 2HR (Lactic Acid Rflx) 4.3 mmol/L (0.7-2.1)
[2022-04-29 22:22] LABS: TSH w/ Reflex to FT4 0.57 uIU/mL (0.47-4.68)
[2022-04-29] MEDS: THIAMINE 500 MG in SODIUM CHLORIDE 0.9% 100 ML 420 MG IV (22:53)
[2022-04-29] MEDS: PHENobarbital 65 MG/ML VIAL 130 MG IV (22:53)
[2022-04-29 23:05] LABS: HCO3 VBG 14 mmol/L (23-28); PCO2 VBG 26.8 mmHg (45-50); PO2 VBG 36 mmHg (35-45); Total CO2 VBG 15 mmol/L (24-29); pH VBG 7.33 (7.33-7.43)
[2022-04-29 23:06] LABS: Oxygen Saturation VBG 67 % (70-75)
--- NOTE | 2022-04-29 23:15 | P.HP_ITS ---
History of Present Illness History of Present Illness Date Patient Seen: 04/29/22 Time Patient Seen: 22:00 Chief complaint: GI Bleed back pain Narrative: Mr. Antunez is a 56M with H alcohol abuse who presents to the hospital with nausea, vomiting and headaches. He does have a history of cholecystectomy with complication results in colostomy, now s/p reanastamosis. He states he drinks 3- 4 24 oz beers daily. His last drink was early this morning. He notes he had a fall a few days ago. He doesn't think he hit his head. He has developed headaches which he says is pounding like feeling right behind his eyes. He has been having nausea and vomiting, he has not noted bright red blood, his vomit has been brown. He has no black or bloody stools. He feels shaky, anxious. He has had withdrawal before but never had a seizure, never been intubated. In the ED workup was done, vitals notable for tachycardia in 120s. Labs notable for WBC 22.1, hgb 13.5, plts 306. Bicarb 10, creatinine 1.11. INR 0.9. LFTS with AST 87, ALT 36. Lactate 7.0. Procal 0.31. UA negative. Urine drug screen positive oxycodone, benzos positive. EtOH 190. CT head with no acute process. CT c-spine with no acture process. CT chest with no acute process. CT abdomen/pelvis with mild esophageal wall thickening, mild colon wall thickening, and hepatic steatosis. Family history: he denies significant alcohol abuse, cardiac history in family members Patient History Medical History Alcoholism Chronic back pain Degenerative disc disease Facet arthropathy, lumbar Footdrop Gait instability Hepatic steatosis Herniated nucleus pulposus, L4-5 Melanotic stools Rectal pain RUQ pain Smoker Surgical History History of colostomy reversal Status post cholecystectomy Status post exploratory laparotomy Status post rotator cuff repair Family & Social History Family History Other No pertinent family history in first degree relatives Social History: household members spouse Safety & Behavioral: Feels Safe in Current Yes Environment Been Physically Hurt or No Threatened By a Person Tobacco & Substance use: Smoking Status Current every day smoker alcohol intake current alcohol intake frequency 3 or more drinks per day Substance Use Type does not use Meds Home Medications and Allergies Home Medications Medication Instructions Recorded Confirmed Type quetiapine 100 mg tablet 100 mg PO BEDTIME 12/24/21 04/29/22 History Allergies Allergy/AdvReac Type Severity Reaction Status Date / Time Penicillins Allergy Severe Anaphylaxis Verified 12/24/21 08:42 Review of Systems Review of Systems Narrative: 14 systems reviewed and negative aside from what is noted in HPI Exam Vital Signs (past 8 hours): - 04/29/22 17:33 04/29/22 17:49 04/29/22 18:00 Temperature 98.4 F Pulse Rate 127 H 131 H 130 H Respiratory Rate 20 14 13 Blood Pressure 132/85 Pulse Oximetry 99 98 Oxygen Delivery Method Room Air Room Air 04/29/22 18:30 04/29/22 18:30 04/29/22 19:00 Temperature Pulse Rate 125 H Respiratory Rate 9 L Blood Pressure 133/77 145/103 H Pulse Oximetry 99 Oxygen Delivery Method 04/29/22 19:00 04/29/22 19:30 04/29/22 19:30 Temperature Pulse Rate 133 H 114 H Respiratory Rate 22 20 Blood Pressure 145/95 H Pulse Oximetry 99 100 Oxygen Delivery Method Room Air 04/29/22 20:00 04/29/22 20:00 04/29/22 20:30 Temperature Pulse Rate 116 H Respiratory Rate 15 Blood Pressure 146/81 H 143/82 H Pulse Oximetry 100 Oxygen Delivery Method 04/29/22 20:30 04/29/22 21:00 04/29/22 21:00 Temperature Pulse Rate 113 H 116 H Respiratory Rate 45 H 17 Blood Pressure 145/81 H Pulse Oximetry 100 97 Oxygen Delivery Method 04/29/22 21:30 04/29/22 21:30 04/29/22 22:00 Temperature Pulse Rate 112 H Respiratory Rate 27 H Blood Pressure 141/65 H 163/85 H Pulse Oximetry 98 Oxygen Delivery Method 04/29/22 22:00 04/29/22 22:30 04/29/22 22:32 Temperature Pulse Rate 113 H 119 H Respiratory Rate 16 21 Blood Pressure 149/72 H Pulse Oximetry 100 100 Oxygen Delivery Method 04/29/22 22:32 Temperature Pulse Rate 118 H Respiratory Rate 29 H Blood Pressure Pulse Oximetry 100 Oxygen Delivery Method Room Air Oxygen Delivery Method Room Air Narrative Exam Narrative: GEN: in distress from withdrawal HEENT: moist mucous membranes, PERRL NECK: trachea midline, no JVD PULM: clear bilaterally, no wheezes, rhonchi, rales ABD: soft, nontender, nondisended, no organomegaly CV: tachycardic, no murmurs EXT: warm and well perfused with no edema NEURO: awake, alert, oriented, tremulous, no focal deficits Objective Labs Result Diagrams: 04/29/22 17:30 04/29/22 17:30 Labs: Laboratory Results - last 24 hr 04/29/22 04/29/22 04/29/22 17:30 17:30 17:30 WBC 22.1 H RBC 4.27 L Hgb 13.5 Hct 42.0 MCV 98.2 MCH 31.7 MCHC 32.3 RDW 14.2 Plt Count 306 Neut % (Auto) 95.3 H Lymph % (Auto) 3.0 L [place] % (Auto) 1.6 L Eos % (Auto) 0.0 L Baso % (Auto) 0.1 Neut # (Auto) 66590 H Lymph # (Auto) 700 L [place] # (Auto) 400 Eos # (Auto) 0 Baso # (Auto) 0 PT 10.4 INR 0.9 APTT 28 VBG pH VBG pCO2 VBG pO2 VBG HCO3 VBG Total CO2 VBG O2 Saturation VBG Base Excess Sodium 143 Potassium 5.0 Chloride 101 Carbon Dioxide 10 L BUN 12 Creatinine 1.11 Estimated GFR > 60 BUN/Creatinine Ratio 10.8 Glucose 115 H Lactate Calcium 8.4 Phosphorus Magnesium Total Bilirubin 0.8 AST 87 H ALT 36 Alkaline Phosphatase 130 H Total Protein 8.2 Albumin 4.7 Globulin 3.5 Albumin/Globulin Ratio 1.3 Procalcitonin TSH Urine RBC Urine WBC Ur Transition Epith Cell Amorphous Sediment Urine Bacteria Hyaline Casts Ur Culture Indicated? U Opiates 300ng/mL cut Ur Oxycodone Screen Urine Methadone Screen Ur Barbiturates Screen U Tricyclic Antidepress Ur Phencyclidine Scrn Ur Amphetamines Screen U Methamphetamines Scrn Ur MDMA Scrn (Ecstasy) U Benzodiazepines Scrn Urine Cocaine Screen U Marijuana (THC) Screen Ethyl Alcohol Ketones Blood Type Antibody Screen 04/29/22 04/29/22 04/29/22 17:30 17:30 17:30 WBC RBC Hgb Hct MCV MCH MCHC RDW Plt Count Neut % (Auto) Lymph % (Auto) [place] % (Auto) Eos % (Auto) Baso % (Auto) Neut # (Auto) Lymph # (Auto) [place] # (Auto) Eos # (Auto) Baso # (Auto) PT INR APTT VBG pH VBG pCO2 VBG pO2 VBG HCO3 VBG Total CO2 VBG O2 Saturation VBG Base Excess Sodium Potassium Chloride Carbon Dioxide BUN Creatinine Estimated GFR BUN/Creatinine Ratio Glucose Lactate 7.0 H* Calcium Phosphorus Magnesium Total Bilirubin AST ALT Alkaline Phosphatase Total Protein Albumin Globulin Albumin/Globulin Ratio Procalcitonin 0.31 TSH Urine RBC Urine WBC Ur Transition Epith Cell Amorphous Sediment Urine Bacteria Hyaline Casts Ur Culture Indicated? U Opiates 300ng/mL cut Ur Oxycodone Screen Urine Methadone Screen Ur Barbiturates Screen U Tricyclic Antidepress Ur Phencyclidine Scrn Ur Amphetamines Screen U Methamphetamines Scrn Ur MDMA Scrn (Ecstasy) U Benzodiazepines Scrn Urine Cocaine Screen U Marijuana (THC) Screen Ethyl Alcohol Ketones Blood Type O Negative Antibody Screen Negative 04/29/22 04/29/22 04/29/22 17:30 17:30 17:30 WBC RBC Hgb Hct MCV MCH MCHC RDW Plt Count Neut % (Auto) Lymph % (Auto) [place] % (Auto) Eos % (Auto) Baso % (Auto) Neut # (Auto) Lymph # (Auto) [place] # (Auto) Eos # (Auto) Baso # (Auto) PT INR APTT VBG pH VBG pCO2 VBG pO2 VBG HCO3 VBG Total CO2 VBG O2 Saturation VBG Base Excess Sodium Potassium Chloride Carbon Dioxide BUN Creatinine Estimated GFR BUN/Creatinine Ratio Glucose Lactate Calcium Phosphorus 4.2 Magnesium 2.2 Total Bilirubin AST ALT Alkaline Phosphatase Total Protein Albumin Globulin Albumin/Globulin Ratio Procalcitonin TSH 0.57 Urine RBC Urine WBC Ur Transition Epith Cell Amorphous Sediment Urine Bacteria Hyaline Casts Ur Culture Indicated? U Opiates 300ng/mL cut Ur Oxycodone Screen Urine Methadone Screen Ur Barbiturates Screen U Tricyclic Antidepress Ur Phencyclidine Scrn Ur Amphetamines Screen U Methamphetamines Scrn Ur MDMA Scrn (Ecstasy) U Benzodiazepines Scrn Urine Cocaine Screen U Marijuana (THC) Screen Ethyl Alcohol Ketones 9.75 H Blood Type Antibody Screen 04/29/22 04/29/22 04/29/22 17:55 18:00 18:00 WBC RBC Hgb Hct MCV MCH MCHC RDW Plt Count Neut % (Auto) Lymph % (Auto) [place] % (Auto) Eos % (Auto) Baso % (Auto) Neut # (Auto) Lymph # (Auto) [place] # (Auto) Eos # (Auto) Baso # (Auto) PT INR APTT VBG pH VBG pCO2 VBG pO2 VBG HCO3 VBG Total CO2 VBG O2 Saturation VBG Base Excess Sodium Potassium Chloride Carbon Dioxide BUN Creatinine Estimated GFR BUN/Creatinine Ratio Glucose Lactate Calcium Phosphorus Magnesium Total Bilirubin AST ALT Alkaline Phosphatase Total Protein Albumin Globulin Albumin/Globulin Ratio Procalcitonin TSH Urine RBC 0-1/hpf Urine WBC None seen Ur Transition Epith Cell 0-1/hpf Amorphous Sediment 1+ Urine Bacteria None seen Hyaline Casts 0-1/lpf Ur Culture Indicated? Cult not indicated U Opiates 300ng/mL cut Negative Ur Oxycodone Screen Positive H Urine Methadone Screen Negative Ur Barbiturates Screen Negative U Tricyclic Antidepress Negative Ur Phencyclidine Scrn Negative Ur Amphetamines Screen Negative U Methamphetamines Scrn Negative Ur MDMA Scrn (Ecstasy) Negative U Benzodiazepines Scrn Positive H Urine Cocaine Screen Negative U Marijuana (THC) Screen Negative Ethyl Alcohol 190 H Ketones Blood Type Antibody Screen 04/29/22 04/29/22 21:25 22:49 WBC RBC Hgb Hct MCV MCH MCHC RDW Plt Count Neut % (Auto) Lymph % (Auto) [place] % (Auto) Eos % (Auto) Baso % (Auto) Neut # (Auto) Lymph # (Auto) [place] # (Auto) Eos # (Auto) Baso # (Auto) PT INR APTT VBG pH 7.33 VBG pCO2 26.8 L VBG pO2 36 VBG HCO3 14 L VBG Total CO2 15 L VBG O2 Saturation 67 L VBG Base Excess -12.0 L Sodium Potassium Chloride Carbon Dioxide BUN Creatinine Estimated GFR BUN/Creatinine Ratio Glucose Lactate 4.3 H* Calcium Phosphorus Magnesium Total Bilirubin AST ALT Alkaline Phosphatase Total Protein Albumin Globulin Albumin/Globulin Ratio Procalcitonin TSH Urine RBC Urine WBC Ur Transition Epith Cell Amorphous Sediment Urine Bacteria Hyaline Casts Ur Culture Indicated? U Opiates 300ng/mL cut Ur Oxycodone Screen Urine Methadone Screen Ur Barbiturates Screen U Tricyclic Antidepress Ur Phencyclidine Scrn Ur Amphetamines Screen U Methamphetamines Scrn Ur MDMA Scrn (Ecstasy) U Benzodiazepines Scrn Urine Cocaine Screen U Marijuana (THC) Screen Ethyl Alcohol Ketones Blood Type Antibody Screen Assessment & Plan Assessment & Plan narrative: 1. Alcohol withdrawal and alcohol abuse -did get 390mg of phenobarb in ED -ordered for CIWA protocol with ativan -SW eval, patient interested in detox -ordered high dose thiamine, plan for 500mg TID for 2 days -MVI, folate 2. Possible severe sepsis -SIRS positive with tachycardia, tachypnea and elevated white count -initial lactate of 7, improved to 4.3 with fluids, continue to trend -procal initially 0.31 -chest xray and UA with no evidence of acute infection -possible colitis and esophagitis noted on CT scan -for now continue IV fluids -levaquin/flagyl for empiric antibiotics -blood cultures pending -no diarrhea at this time 3. Vomiting, question bloody -suspect secondary to alcohol abuse -treat alcohol abuse as above -zofran PRN for symptoms -no vomiting in ED -hgb normal on arrival -recheck hemoglobin tonight -for now continue PPI BID, but if no evidence of bleeding can likely stop in 24 hours -clear liquid diet for now, advance as able 4. Acidosis -initial bicarb on bmp is 10 -vbg showed pH of 7.33, nearly normal -lactate and ketones elevated -suspect possible alcoholic ketoacidosis -ordered for high dose thiamine -d5ns for fluids due to likely alcoholic ketoacidosis 6. Possible esophagitis, colitis -CT scan showed abnormalities -suspect esophagitis may be secondary to vomiting -colitis is questionably infection -IV antibiotics as above -PPI as above -no indication for EGD at the moment 7. Sinus tachycardia -suspect secondary to withdrawal vs infection -improving with fluids, antibiotics, and withdrawal meds 8. Headache -suspect secondary to withdrawal -CT head showed no acute process -if headache not improved with treatment of withdrawal will need further workup for migraine vs cluster, unlikely meningitis CODE: Full Proxy: Mariangel Mccloud, spouse I have utilized all available resources to reconcile the patient's home medications Time Spent With Patient Critical Care time: I spent a total of [] minutes of critical care time on this patient's care today; this time is exclusive of procedural time.
[2022-04-29] MEDS: HYDROCODONE/ACET 5/325 TABLET 1 TAB PO (23:24)
[2022-04-29] MEDS: metroNIDAZOLE 500 MG/100 ML PIGGYBACK 100 MG IV (23:25)
[2022-04-29 23:31] LABS: Add Manual Diff / Slide Review NO; Basophils Absolute Auto 0 /uL (0-100); Basophils Percent Auto 0.1 % (0-2); Eosinophils Absolute Auto 0 /uL (0-450); Hematocrit 35.2 % (41-53); Hemoglobin 11.6 g/dL (13.5-17.5); Lymphocytes Absolute Auto 700 /uL (1100-4500); Lymphocytes Percent Auto 6.7 % (25-40); Mean Corpuscular Hemoglobin 31.8 PG (26-34); Mean Corpuscular Volume 96.4 fL (80-100); Monocytes Absolute Auto 600 /uL (0-900); Monocytes Percent Auto 5.5 % (3-14); Neutrophils Absolute Auto 9800 /uL (1500-7000); Neutrophils Percent Auto 87.7 % (50-75); Platelet Count 231 X10^3/uL (150-400); Red Blood Cell Count 3.65 X10^6/uL (4.5-5.9); Red Cell Distribution Width 13.8 % (11.6-14.8); White Blood Cell Count 11.2 X10^3/uL (4.5-11.0)
[2022-04-29 23:37] LABS: BUN Creatinine Ratio 8.5 (6-22); Blood Urea Nitrogen 8 mg/dL (9-20); Calcium 7.7 mg/dL (8.4-10.2); Carbon Dioxide 14 mmol/L (22-32); Chloride 105 mmol/L (98-107); Estimated Glomerular Filt Rate > 60 mL/min (>60); Glucose 110 mg/dL (70-100); HEMOLYSIS < 15 (0-50); Potassium 4.5 mmol/L (3.4-5.1); Sodium 137 mmol/L (137-145)
[2022-04-29 23:56] LABS: Influenza A - CEPHEID Flu A NEGATIVE (NEGATIVE); Influenza B - CEPHEID Flu B NEGATIVE (NEGATIVE); Respiratory Syncytial Virus Negative (Negative)
[2022-04-29 23:57] LABS: COVID-19 CEPHEID 4-PLEX PCR Negative (Negative)
[2022-04-30] VITALS (45 sets, daily range): BP systolic 113–149; BP diastolic 59–82; PULSE 67–134; RESP 8–40; TEMP 37.1; O2SAT 96–100; BMI 24.3
[2022-04-30] MEDS: ACETAMINOPHEN 325 MG TABLET 650 MG PO (02:04)
[2022-04-30] MEDS: ONDANSETRON 4 MG/2 ML INJ IV ×2 (02:04→14:11)
[2022-04-30] MEDS: DEXTROSE 5%-0.9% NS 1,000 ML 100 ML IV ×2 (02:06→14:11)
[2022-04-30 02:58] LABS: Lactate (Lactic Acid) 0.9 mmol/L (0.7-2.1)
[2022-04-30 06:06] LABS: Add Manual Diff / Slide Review NO; Basophils Absolute Auto 0 /uL (0-100); Basophils Percent Auto 0.4 % (0-2); Eosinophils Absolute Auto 0 /uL (0-450); Hematocrit 30.8 % (41-53); Hemoglobin 10.6 g/dL (13.5-17.5); Lymphocytes Absolute Auto 1300 /uL (1100-4500); Lymphocytes Percent Auto 16.1 % (25-40); Mean Corpuscular HGB Conc 34.5 % (30-36); Mean Corpuscular Hemoglobin 32.5 PG (26-34); Mean Corpuscular Volume 94.2 fL (80-100); Monocytes Absolute Auto 800 /uL (0-900); Monocytes Percent Auto 9.9 % (3-14); Neutrophils Absolute Auto 6100 /uL (1500-7000); Neutrophils Percent Auto 73.6 % (50-75); Platelet Count 183 X10^3/uL (150-400); Red Blood Cell Count 3.27 X10^6/uL (4.5-5.9); Red Cell Distribution Width 13.8 % (11.6-14.8); White Blood Cell Count 8.3 X10^3/uL (4.5-11.0)
[2022-04-30 06:18] LABS: Alanine Aminotransferase 28 IU/L (<50); Albumin 3.3 g/dL (3.5-5.0); Albumin Globulin Ratio 1.3 (1.0-2.8); Alkaline Phosphatase 85 U/L (38-126); Aspartate Aminotransferase 57 IU/L (17-59); BUN Creatinine Ratio 9.3 (6-22); Bilirubin Total 0.8 mg/dL (0.2-1.3); Blood Urea Nitrogen 8 mg/dL (9-20); Calcium 7.5 mg/dL (8.4-10.2); Carbon Dioxide 22 mmol/L (22-32); Chloride 102 mmol/L (98-107); Estimated Glomerular Filt Rate > 60 mL/min (>60); Globulin 2.6 g/dL (1.7-4.1); Glucose 115 mg/dL (70-100); HEMOLYSIS < 15 (0-50); Magnesium 1.9 mg/dL (1.6-2.3); Phosphorous 1.7 mg/dL (2.5-4.5); Potassium 4.1 mmol/L (3.4-5.1); Sodium 134 mmol/L (137-145); Total Protein 5.9 g/dL (6.3-8.2)
[2022-04-30] MEDS: HYDROCODONE/ACET 5/325 TABLET 1 TAB PO ×2 (06:27→14:11)
[2022-04-30] MEDS: metroNIDAZOLE 500 MG/100 ML PIGGYBACK 100 MG IV (08:06)
--- NOTE | 2022-04-30 09:18 | PM.PN.1 ---
Subjective Subjective Date Patient Seen: 04/30/22 Interval history: 56-year-old male with alcohol dependency admitted due to nausea, vomiting, abdominal pain and headaches. He is also going through alcohol withdrawal. CT abdomen/pelvis showed mild esophageal wall thickening, mild colon wall thickening and hepatic steatosis. Patient has persistent severe nausea and also having pain across his abdomen, feels shaky and sweaty. Exam Vital Signs (past 8 hours): - 04/30/22 01:30 04/30/22 02:00 04/30/22 02:00 Pulse Rate 104 H 99 H Respiratory Rate Blood Pressure 122/59 L Pulse Oximetry 97 96 04/30/22 02:30 04/30/22 03:00 04/30/22 03:00 Pulse Rate 98 H 98 H Respiratory Rate Blood Pressure 127/65 Pulse Oximetry 96 96 04/30/22 03:30 04/30/22 04:00 04/30/22 04:00 Pulse Rate 97 H 99 H Respiratory Rate 9 L Blood Pressure 140/77 Pulse Oximetry 96 99 04/30/22 04:30 04/30/22 05:00 04/30/22 05:00 Pulse Rate 97 H 99 H Respiratory Rate 18 15 Blood Pressure 113/72 Pulse Oximetry 98 96 04/30/22 05:30 04/30/22 06:00 04/30/22 06:00 Pulse Rate 90 104 H Respiratory Rate 14 22 Blood Pressure 143/82 H Pulse Oximetry 96 100 04/30/22 06:30 04/30/22 06:47 04/30/22 06:47 Pulse Rate 96 H 91 H Respiratory Rate 21 Blood Pressure 139/82 Pulse Oximetry 98 04/30/22 07:00 04/30/22 07:00 04/30/22 07:30 Pulse Rate 92 H 87 Respiratory Rate 13 16 Blood Pressure 134/74 Pulse Oximetry 97 96 04/30/22 08:00 04/30/22 08:00 Pulse Rate 86 Respiratory Rate 8 L Blood Pressure 128/77 Pulse Oximetry 98 Oxygen Delivery Method Room Air Narrative Exam Narrative: General: Alert and cooperative, appears in distress Lungs: Clear Heart: Regular rhythm Abdomen: Soft, tender across mid abdomen Extremities: No edema Neurological: Patient with mild tremoring, perspiring Objective Labs Result Diagrams: 04/30/22 05:57 04/30/22 05:57 Labs: Laboratory Results - last 24 hr 04/29/22 04/29/22 04/29/22 17:30 17:30 17:30 WBC 22.1 H RBC 4.27 L Hgb 13.5 Hct 42.0 MCV 98.2 MCH 31.7 MCHC 32.3 RDW 14.2 Plt Count 306 Neut % (Auto) 95.3 H Lymph % (Auto) 3.0 L [place] % (Auto) 1.6 L Eos % (Auto) 0.0 L Baso % (Auto) 0.1 Neut # (Auto) 85046 H Lymph # (Auto) 700 L Imperial # (Auto) 400 Eos # (Auto) 0 Baso # (Auto) 0 PT 10.4 INR 0.9 APTT 28 VBG pH VBG pCO2 VBG pO2 VBG HCO3 VBG Total CO2 VBG O2 Saturation VBG Base Excess Sodium 143 Potassium 5.0 Chloride 101 Carbon Dioxide 10 L BUN 12 Creatinine 1.11 Estimated GFR > 60 BUN/Creatinine Ratio 10.8 Glucose 115 H Lactate Calcium 8.4 Phosphorus Magnesium Total Bilirubin 0.8 AST 87 H ALT 36 Alkaline Phosphatase 130 H Total Protein 8.2 Albumin 4.7 Globulin 3.5 Albumin/Globulin Ratio 1.3 Procalcitonin TSH Urine RBC Urine WBC Ur Transition Epith Cell Amorphous Sediment Urine Bacteria Hyaline Casts Ur Culture Indicated? U Opiates 300ng/mL cut Ur Oxycodone Screen Urine Methadone Screen Ur Barbiturates Screen U Tricyclic Antidepress Ur Phencyclidine Scrn Ur Amphetamines Screen U Methamphetamines Scrn Ur MDMA Scrn (Ecstasy) U Benzodiazepines Scrn Urine Cocaine Screen U Marijuana (THC) Screen Ethyl Alcohol Ketones SARS-CoV-2 (PCR) Influenza A (RT-PCR) Influenza B (RT-PCR) RSV (PCR) Blood Type Antibody Screen 04/29/22 04/29/22 04/29/22 17:30 17:30 17:30 WBC RBC Hgb Hct MCV MCH MCHC RDW Plt Count Neut % (Auto) Lymph % (Auto) [place] % (Auto) Eos % (Auto) Baso % (Auto) Neut # (Auto) Lymph # (Auto) [place] # (Auto) Eos # (Auto) Baso # (Auto) PT INR APTT VBG pH VBG pCO2 VBG pO2 VBG HCO3 VBG Total CO2 VBG O2 Saturation VBG Base Excess Sodium Potassium Chloride Carbon Dioxide BUN Creatinine Estimated GFR BUN/Creatinine Ratio Glucose Lactate 7.0 H* Calcium Phosphorus Magnesium Total Bilirubin AST ALT Alkaline Phosphatase Total Protein Albumin Globulin Albumin/Globulin Ratio Procalcitonin 0.31 TSH Urine RBC Urine WBC Ur Transition Epith Cell Amorphous Sediment Urine Bacteria Hyaline Casts Ur Culture Indicated? U Opiates 300ng/mL cut Ur Oxycodone Screen Urine Methadone Screen Ur Barbiturates Screen U Tricyclic Antidepress Ur Phencyclidine Scrn Ur Amphetamines Screen U Methamphetamines Scrn Ur MDMA Scrn (Ecstasy) U Benzodiazepines Scrn Urine Cocaine Screen U Marijuana (THC) Screen Ethyl Alcohol Ketones SARS-CoV-2 (PCR) Influenza A (RT-PCR) Influenza B (RT-PCR) RSV (PCR) Blood Type O Negative Antibody Screen Negative 04/29/22 04/29/22 04/29/22 17:30 17:30 17:30 WBC RBC Hgb Hct MCV MCH MCHC RDW Plt Count Neut % (Auto) Lymph % (Auto) [place] % (Auto) Eos % (Auto) Baso % (Auto) Neut # (Auto) Lymph # (Auto) [place] # (Auto) Eos # (Auto) Baso # (Auto) PT INR APTT VBG pH VBG pCO2 VBG pO2 VBG HCO3 VBG Total CO2 VBG O2 Saturation VBG Base Excess Sodium Potassium Chloride Carbon Dioxide BUN Creatinine Estimated GFR BUN/Creatinine Ratio Glucose Lactate Calcium Phosphorus 4.2 Magnesium 2.2 Total Bilirubin AST ALT Alkaline Phosphatase Total Protein Albumin Globulin Albumin/Globulin Ratio Procalcitonin TSH 0.57 Urine RBC Urine WBC Ur Transition Epith Cell Amorphous Sediment Urine Bacteria Hyaline Casts Ur Culture Indicated? U Opiates 300ng/mL cut Ur Oxycodone Screen Urine Methadone Screen Ur Barbiturates Screen U Tricyclic Antidepress Ur Phencyclidine Scrn Ur Amphetamines Screen U Methamphetamines Scrn Ur MDMA Scrn (Ecstasy) U Benzodiazepines Scrn Urine Cocaine Screen U Marijuana (THC) Screen Ethyl Alcohol Ketones 9.75 H SARS-CoV-2 (PCR) Influenza A (RT-PCR) Influenza B (RT-PCR) RSV (PCR) Blood Type Antibody Screen 04/29/22 04/29/22 04/29/22 17:55 18:00 18:00 WBC RBC Hgb Hct MCV MCH MCHC RDW Plt Count Neut % (Auto) Lymph % (Auto) [place] % (Auto) Eos % (Auto) Baso % (Auto) Neut # (Auto) Lymph # (Auto) [place] # (Auto) Eos # (Auto) Baso # (Auto) PT INR APTT VBG pH VBG pCO2 VBG pO2 VBG HCO3 VBG Total CO2 VBG O2 Saturation VBG Base Excess Sodium Potassium Chloride Carbon Dioxide BUN Creatinine Estimated GFR BUN/Creatinine Ratio Glucose Lactate Calcium Phosphorus Magnesium Total Bilirubin AST ALT Alkaline Phosphatase Total Protein Albumin Globulin Albumin/Globulin Ratio Procalcitonin TSH Urine RBC 0-1/hpf Urine WBC None seen Ur Transition Epith Cell 0-1/hpf Amorphous Sediment 1+ Urine Bacteria None seen Hyaline Casts 0-1/lpf Ur Culture Indicated? Cult not indicated U Opiates 300ng/mL cut Negative Ur Oxycodone Screen Positive H Urine Methadone Screen Negative Ur Barbiturates Screen Negative U Tricyclic Antidepress Negative Ur Phencyclidine Scrn Negative Ur Amphetamines Screen Negative U Methamphetamines Scrn Negative Ur MDMA Scrn (Ecstasy) Negative U Benzodiazepines Scrn Positive H Urine Cocaine Screen Negative U Marijuana (THC) Screen Negative Ethyl Alcohol 190 H Ketones SARS-CoV-2 (PCR) Influenza A (RT-PCR) Influenza B (RT-PCR) RSV (PCR) Blood Type Antibody Screen 04/29/22 04/29/22 04/29/22 21:25 22:49 22:52 WBC RBC Hgb Hct MCV MCH MCHC RDW Plt Count Neut % (Auto) Lymph % (Auto) [place] % (Auto) Eos % (Auto) Baso % (Auto) Neut # (Auto) Lymph # (Auto) [place] # (Auto) Eos # (Auto) Baso # (Auto) PT INR APTT VBG pH 7.33 VBG pCO2 26.8 L VBG pO2 36 VBG HCO3 14 L VBG Total CO2 15 L VBG O2 Saturation 67 L VBG Base Excess -12.0 L Sodium Potassium Chloride Carbon Dioxide BUN Creatinine Estimated GFR BUN/Creatinine Ratio Glucose Lactate 4.3 H* Calcium Phosphorus Magnesium Total Bilirubin AST ALT Alkaline Phosphatase Total Protein Albumin Globulin Albumin/Globulin Ratio Procalcitonin TSH Urine RBC Urine WBC Ur Transition Epith Cell Amorphous Sediment Urine Bacteria Hyaline Casts Ur Culture Indicated? U Opiates 300ng/mL cut Ur Oxycodone Screen Urine Methadone Screen Ur Barbiturates Screen U Tricyclic Antidepress Ur Phencyclidine Scrn Ur Amphetamines Screen U Methamphetamines Scrn Ur MDMA Scrn (Ecstasy) U Benzodiazepines Scrn Urine Cocaine Screen U Marijuana (THC) Screen Ethyl Alcohol Ketones SARS-CoV-2 (PCR) Negative Influenza A (RT-PCR) Flu a negative Influenza B (RT-PCR) Flu b negative RSV (PCR) Negative Blood Type Antibody Screen 04/29/22 04/29/22 04/30/22 23:17 23:17 02:07 WBC 11.2 H RBC 3.65 L Hgb 11.6 L Hct 35.2 L MCV 96.4 MCH 31.8 MCHC 33.0 RDW 13.8 Plt Count 231 Neut % (Auto) 87.7 H Lymph % (Auto) 6.7 L Imperial % (Auto) 5.5 Eos % (Auto) 0.0 L Baso % (Auto) 0.1 Neut # (Auto) 9800 H Lymph # (Auto) 700 L Imperial # (Auto) 600 Eos # (Auto) 0 Baso # (Auto) 0 PT INR APTT VBG pH VBG pCO2 VBG pO2 VBG HCO3 VBG Total CO2 VBG O2 Saturation VBG Base Excess Sodium 137 Potassium 4.5 Chloride 105 Carbon Dioxide 14 L BUN 8 L Creatinine 0.94 Estimated GFR > 60 BUN/Creatinine Ratio 8.5 Glucose 110 H Lactate 0.9 Calcium 7.7 L Phosphorus Magnesium Total Bilirubin AST ALT Alkaline Phosphatase Total Protein Albumin Globulin Albumin/Globulin Ratio Procalcitonin TSH Urine RBC Urine WBC Ur Transition Epith Cell Amorphous Sediment Urine Bacteria Hyaline Casts Ur Culture Indicated? U Opiates 300ng/mL cut Ur Oxycodone Screen Urine Methadone Screen Ur Barbiturates Screen U Tricyclic Antidepress Ur Phencyclidine Scrn Ur Amphetamines Screen U Methamphetamines Scrn Ur MDMA Scrn (Ecstasy) U Benzodiazepines Scrn Urine Cocaine Screen U Marijuana (THC) Screen Ethyl Alcohol Ketones SARS-CoV-2 (PCR) Influenza A (RT-PCR) Influenza B (RT-PCR) RSV (PCR) Blood Type Antibody Screen 04/30/22 04/30/22 05:57 05:57 WBC 8.3 RBC 3.27 L Hgb 10.6 L Hct 30.8 L MCV 94.2 MCH 32.5 MCHC 34.5 RDW 13.8 Plt Count 183 Neut % (Auto) 73.6 Lymph % (Auto) 16.1 L Imperial % (Auto) 9.9 Eos % (Auto) 0.0 L Baso % (Auto) 0.4 Neut # (Auto) 6100 Lymph # (Auto) 1300 Imperial # (Auto) 800 Eos # (Auto) 0 Baso # (Auto) 0 PT INR APTT VBG pH VBG pCO2 VBG pO2 VBG HCO3 VBG Total CO2 VBG O2 Saturation VBG Base Excess Sodium 134 L Potassium 4.1 Chloride 102 Carbon Dioxide 22 BUN 8 L Creatinine 0.86 Estimated GFR > 60 BUN/Creatinine Ratio 9.3 Glucose 115 H Lactate Calcium 7.5 L Phosphorus 1.7 L D Magnesium 1.9 Total Bilirubin 0.8 AST 57 ALT 28 Alkaline Phosphatase 85 Total Protein 5.9 L Albumin 3.3 L Globulin 2.6 Albumin/Globulin Ratio 1.3 Procalcitonin TSH Urine RBC Urine WBC Ur Transition Epith Cell Amorphous Sediment Urine Bacteria Hyaline Casts Ur Culture Indicated? U Opiates 300ng/mL cut Ur Oxycodone Screen Urine Methadone Screen Ur Barbiturates Screen U Tricyclic Antidepress Ur Phencyclidine Scrn Ur Amphetamines Screen U Methamphetamines Scrn Ur MDMA Scrn (Ecstasy) U Benzodiazepines Scrn Urine Cocaine Screen U Marijuana (THC) Screen Ethyl Alcohol Ketones SARS-CoV-2 (PCR) Influenza A (RT-PCR) Influenza B (RT-PCR) RSV (PCR) Blood Type Antibody Screen PFSH Medical History Alcoholism Chronic back pain Degenerative disc disease Facet arthropathy, lumbar Footdrop Gait instability Hepatic steatosis Herniated nucleus pulposus, L4-5 Melanotic stools Rectal pain RUQ pain Smoker Surgical History History of colostomy reversal Status post cholecystectomy Status post exploratory laparotomy Status post rotator cuff repair Family History Other No pertinent family history in first degree relatives Social History marital status: household members: spouse Smoking Status: Current every day smoker alcohol intake: current substance use type: does not use Assessment & Plan Assessment & Plan narrative: 1. Alcohol withdrawal and alcohol abuse -did get 390mg of phenobarb in ED -ordered for CIWA protocol with ativan -SW eval, patient interested in detox -ordered high dose thiamine, plan for 500mg TID for 2 days -MVI, folate 2. Possible severe sepsis, ruled out -SIRS positive with tachycardia, tachypnea and elevated white count -initial lactate of 7, improved to 4.3 with fluids, continue to trend -procal initially 0.31 -chest xray and UA with no evidence of acute infection -possible colitis and esophagitis noted on CT scan-these are nonspecific findings -for now continue IV fluids -04/30 discontinued levaquin/flagyl for empiric antibiotics -blood cultures pending -no diarrhea at this time -discontinued antibiotics as there is no obvious infectious source and presentation is more consistent with dehydration and ETOH withdrawal 3. Vomiting, question bloody -suspect secondary to alcohol abuse -treat alcohol abuse as above -zofran PRN for symptoms -no vomiting in ED -hgb normal on arrival -trend hemoglobin expect it will drop with hydration -discontinued PPI -clear liquid diet for now, advance as able 4. Acidosis -initial bicarb on bmp is 10 -vbg showed pH of 7.33, nearly normal -lactate and ketones elevated -suspect alcoholic ketoacidosis -ordered for high dose thiamine -d5ns for fluids due to likely alcoholic ketoacidosis 6. Possible esophagitis, colitis -CT scan showed abnormalities -suspect esophagitis may be secondary to vomiting -colitis is questionably infection -discontinued antibiotics as low likelihood infectious etiology -endoscopy not indicated at this time 7. Sinus tachycardia -suspect secondary to withdrawal vs infection -improving with fluids, antibiotics, and withdrawal meds 8. Headache -suspect secondary to withdrawal -CT head showed no acute process -if headache not improved with treatment of withdrawal will need further workup for migraine vs cluster, unlikely meningitis CODE: Full Proxy: Mariangel Mccloud, spouse Time Spent With Patient Critical Care time: I spent a total of [] minutes of critical care time on this patient's care today; this time is exclusive of procedural time.
[2022-04-30] MEDS: FOLIC ACID 1 MG TABLET PO (09:42)
[2022-04-30] MEDS: LORazepam 2 MG/ML INJ IV (09:42)
[2022-04-30] MEDS: MULTIVITAMIN 1 TABLET 1 TAB PO (09:43)
[2022-04-30] MEDS: THIAMINE 500 MG in SODIUM CHLORIDE 0.9% 100 ML 420 MG IV ×3 (09:56→20:42)
--- NOTE | 2022-04-30 13:25 | PC.NURSE ---
Nausea, vomiting and diarrhea since restarting drinking on 04/27/22. Some report of coffee ground emesis. No vomiting or diarrhea today. Patient remains stable and alert.
--- NOTE | 2022-04-30 14:36 | PC.NURSE ---
Patient brought up from ER to ICU room 228 via wheelchair. Transferred to bed with SB assistance. VSS. Sinus rhythm on telemetry. Endorses mild nausea, and a headache with pressure, denies abdominal pain at rest but states it is tender with touch mostly on left side. Patient oriented to room and call light, bed alarm activated for high fall precaution protocol. Urinal and call light placed within reach. Continue to monitor.
[2022-04-30] MEDS: SODIUM,POTASSIUM PHOSPHATES PACKET 2 EACH PO (16:43)
[2022-04-30] MEDS: LORazepam 1 MG TABLET PO (16:45)
[2022-04-30 19:33] LABS: Lipase 135 U/L (23-300)
[2022-04-30] MEDS: QUETIAPINE 100 MG TABLET PO (20:42)
[2022-05-01] VITALS (12 sets, daily range): BP systolic 99–136; BP diastolic 61–89; PULSE 55–87; RESP 14–19; TEMP 36.5–37.1; O2SAT 97–100
[2022-05-01] MEDS: DEXTROSE 5%-0.9% NS 1,000 ML 100 ML IV
[2022-05-01] MEDS: LORazepam 1 MG TABLET PO ×5 (01:40→17:12)
[2022-05-01] MEDS: HYDROCODONE/ACET 5/325 TABLET 1 TAB PO ×4 (01:40→18:21)
[2022-05-01 04:53] LABS: Add Manual Diff / Slide Review NO; BUN Creatinine Ratio 4.1 (6-22); Basophils Absolute Auto 0 /uL (0-100); Basophils Percent Auto 0.3 % (0-2); Blood Urea Nitrogen 3 mg/dL (9-20); Calcium 7.6 mg/dL (8.4-10.2); Carbon Dioxide 29 mmol/L (22-32); Chloride 102 mmol/L (98-107); Eosinophils Absolute Auto 0 /uL (0-450); Eosinophils Percent Auto 0.2 % (2-4); Estimated Glomerular Filt Rate > 60 mL/min (>60); Glucose 127 mg/dL (70-100); HEMOLYSIS < 15 (0-50); Hematocrit 29.8 % (41-53); Hemoglobin 10.2 g/dL (13.5-17.5); Lymphocytes Absolute Auto 1800 /uL (1100-4500); Lymphocytes Percent Auto 28.5 % (25-40); Mean Corpuscular HGB Conc 34.2 % (30-36); Mean Corpuscular Hemoglobin 32.3 PG (26-34); Mean Corpuscular Volume 94.6 fL (80-100); Monocytes Absolute Auto 300 /uL (0-900); Monocytes Percent Auto 4.7 % (3-14); Neutrophils Absolute Auto 4200 /uL (1500-7000); Neutrophils Percent Auto 66.3 % (50-75); Phosphorous 1.4 mg/dL (2.5-4.5); Platelet Count 160 X10^3/uL (150-400); Potassium 3.1 mmol/L (3.4-5.1); Red Blood Cell Count 3.16 X10^6/uL (4.5-5.9); Sodium 135 mmol/L (137-145); White Blood Cell Count 6.3 X10^3/uL (4.5-11.0)
--- NOTE | 2022-05-01 06:14 | PC.NURSE ---
Manager Critical Care Unit Note-Patient has been A/Ox4, CIWA 8 at highest, PO Ativan given per protocol, patient was able to sleep. Also received [place] for pain and Seroquel for sleep. VSS, SB/SR on telemetry. Had loose guaiac positive stool.
[2022-05-01] MEDS: FOLIC ACID 1 MG TABLET PO (08:17)
[2022-05-01] MEDS: ENOXAPARIN 40 MG/0.4 ML SYRINGE SUBCUT (08:17)
[2022-05-01] MEDS: MULTIVITAMIN 1 TABLET 1 TAB PO (08:17)
[2022-05-01] MEDS: POTASSIUM PHOSPHATE 30 MMOL in SODIUM CHLORIDE 0.9% 500 ML 85 MMOL IV (12:42)
--- NOTE | 2022-05-01 14:07 | CM.DANOTE ---
Initial DCP Assessment Note Pt is a 56 yo male, resident of [place], presents to the hospital with nausea, vomiting and headaches, admitted inpatient for management of ETOH w/d PCP: Garrett Deleon Payer: [facility] MCR/[facility] Reviewed chart, patient expected to discharge this evening or tomorrow Patient lives w/spouse; patient explains that d/t a back injury he was laid off of work in either 2003 or 2013. Patient currently disabled, spouse is retired Patient admits drinking 3 large cans of tomato juice beer w/occasional shots of vodka daily. Patient has been to 8-10+ alcohol detox/treatment facilities. Last time sober was at [facility] approx one month ago. Patient left this treatment program early because too much was going on there, it wasn't helping Patient had been to [facility] in [place] before getting his bed date at [facility]. Patient drank two days after leaving [facility]. Patient admits he wants to stop drinking because my body can't do this anymore; when asked what has worked well during treatment or during times of sobriety? Patient says staying busy and being in contact w/his AA community helps Patient explains that he has lost many loved ones throughout his life, including his AA sponsor 3 years ago. Strongly encouraged patient to get a counselor KARSTEN and patient says he has tried w/his [facility] and [facility] and it has been difficult - patient has attempted [facility], [facility] and [facility]. Provided patient a brochure for [facility] and highlighted the [facility] access line. 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 No History Provided By Patient Prior Living Arrangements House Household Members spouse Type of transporation used prior to Drives own vehicle admit Independent with ADL's Yes Is patient alert and oriented? Yes Comment Cannot lift more than 30 pounds d/t a back injury at work, Disability benefits Barriers to Discharge No Comment See narrative Discharge Plan Home Transportation Arrangement Spouse Additional Comment Provided brochure for [facility] per discussion with patient, to assist in securing a grief counselor w/ either [facility] vs [facility]
[2022-05-01] MEDS: THIAMINE 500 MG in SODIUM CHLORIDE 0.9% 100 ML 420 MG IV (15:57)
[2022-05-01] MEDS: chlordiazePOXIDE 25 MG CAPSULE PO ×2 (16:16→20:02)
--- NOTE | 2022-05-01 18:29 | P.PN_ITS ---
Subjective Subjective Date Patient Seen: 05/01/22 Interval history: Patient still having tremors today with anxiety and nausea. Says the ativan really helps. Librium added to bridge in between ativan doses. Exam Vital Signs (past 8 hours): - 05/01/22 11:44 05/01/22 12:00 05/01/22 12:00 Temperature 98.2 F Pulse Rate 71 82 Respiratory Rate 18 18 Blood Pressure 131/79 Pulse Oximetry 98 98 Oxygen Delivery Method Room Air Oxygen Flow Rate 0 05/01/22 16:05 05/01/22 16:00 05/01/22 16:00 Temperature 98.3 F Pulse Rate 87 75 Respiratory Rate 16 17 Blood Pressure 131/89 124/66 Pulse Oximetry 97 100 Oxygen Delivery Method Room Air Oxygen Flow Rate 0 05/01/22 17:57 Temperature Pulse Rate 80 Respiratory Rate 17 Blood Pressure 124/66 Pulse Oximetry Oxygen Delivery Method Oxygen Flow Rate Oxygen Delivery Method Room Air Oxygen Flow Rate 0 Narrative Exam Narrative: General: Alert and cooperative, tremulous and anxious Lungs: Clear Heart: Regular rhythm Abdomen: Soft, tender across mid abdomen Extremities: No edema Neurological: No deficits Objective Labs Result Diagrams: 05/01/22 04:09 05/01/22 04:09 Labs: Laboratory Results - last 24 hr 04/30/22 04/30/22 05/01/22 05:57 13:30 04:09 WBC 6.3 RBC 3.16 L Hgb 10.2 L Hct 29.8 L MCV 94.6 MCH 32.3 MCHC 34.2 RDW 14.0 Plt Count 160 Neut % (Auto) 66.3 Lymph % (Auto) 28.5 [place] % (Auto) 4.7 Eos % (Auto) 0.2 L Baso % (Auto) 0.3 Neut # (Auto) 4200 Lymph # (Auto) 1800 [place] # (Auto) 300 Eos # (Auto) 0 Baso # (Auto) 0 Sodium Potassium Chloride Carbon Dioxide BUN Creatinine Estimated GFR BUN/Creatinine Ratio Glucose Calcium Phosphorus Lipase 135 Nasal Screen MRSA (PCR) Negative for mrsa 05/01/22 05/01/22 04:09 04:09 WBC RBC Hgb Hct MCV MCH MCHC RDW Plt Count Neut % (Auto) Lymph % (Auto) [place] % (Auto) Eos % (Auto) Baso % (Auto) Neut # (Auto) Lymph # (Auto) [place] # (Auto) Eos # (Auto) Baso # (Auto) Sodium 135 L Potassium 3.1 L Chloride 102 Carbon Dioxide 29 BUN 3 L Creatinine 0.74 Estimated GFR > 60 BUN/Creatinine Ratio 4.1 L Glucose 127 H Calcium 7.6 L Phosphorus 1.4 L Lipase Nasal Screen MRSA (PCR) PFSH Medical History Alcoholism Chronic back pain Degenerative disc disease Facet arthropathy, lumbar Footdrop Gait instability Hepatic steatosis Herniated nucleus pulposus, L4-5 Melanotic stools Rectal pain RUQ pain Smoker Surgical History History of colostomy reversal Status post cholecystectomy Status post exploratory laparotomy Status post rotator cuff repair Family History Other No pertinent family history in first degree relatives Social History marital status: household members: spouse Smoking Status: Current every day smoker alcohol intake: current substance use type: does not use Assessment & Plan Assessment & Plan narrative: 1. Alcohol withdrawal and alcohol abuse -did get 390mg of phenobarb in ED -ordered for CIWA protocol with ativan -SW eval, patient interested in detox -ordered high dose thiamine, plan for 500mg TID for 2 days -MVI, folate -librium added with plan for outpatient taper once discharged 2. Possible severe sepsis, ruled out -SIRS positive with tachycardia, tachypnea and elevated white count -initial lactate of 7, improved to 4.3 with fluids, continue to trend -procal initially 0.31 -chest xray and UA with no evidence of acute infection -possible colitis and esophagitis noted on CT scan-these are nonspecific findings -for now continue IV fluids -04/30 discontinued levaquin/flagyl for empiric antibiotics -blood cultures pending -no diarrhea at this time -discontinued antibiotics as there is no obvious infectious source and presentation is more consistent with dehydration and ETOH withdrawal 3. Vomiting, question bloody, now resolved -suspect secondary to alcohol abuse -treat alcohol abuse as above -zofran PRN for symptoms -no vomiting in ED -hgb normal on arrival -trend hemoglobin expect it will drop with hydration -discontinued PPI 4. Acidosis -initial bicarb on bmp is 10 -vbg showed pH of 7.33, nearly normal -lactate and ketones elevated -suspect alcoholic ketoacidosis -ordered for high dose thiamine -d5ns for fluids due to likely alcoholic ketoacidosis 6. Possible esophagitis/colitis, ruled out -CT scan showed abnormalities -suspect esophagitis may be secondary to vomiting -colitis is questionably infection -discontinued antibiotics as low likelihood infectious etiology -endoscopy not indicated at this time 7. Sinus tachycardia -suspect secondary to withdrawal vs infection -improving with fluids, antibiotics, and withdrawal meds 8. Headache, improving -suspect secondary to withdrawal -CT head showed no acute process -if headache not improved with treatment of withdrawal will need further workup for migraine vs cluster, unlikely meningitis CODE: Full Proxy: Mariangel Tatumseaner, spouse Dispo: Home on 05/02. Time Spent With Patient Critical Care time: I spent a total of [] minutes of critical care time on this patient's care today; this time is exclusive of procedural time.
[2022-05-01] MEDS: ACETAMINOPHEN 325 MG TABLET 650 MG PO (20:02)
[2022-05-01] MEDS: QUETIAPINE 100 MG TABLET PO (20:02)
[2022-05-02] VITALS (7 sets, daily range): BP systolic 107–130; BP diastolic 65–78; PULSE 67–84; RESP 16–19; TEMP 36.8–37.1; O2SAT 98–100
[2022-05-02] MEDS: DEXTROSE 5%-0.9% NS 1,000 ML 100 ML IV (01:10)
[2022-05-02] MEDS: LORazepam 1 MG TABLET PO ×4 (03:57→14:13)
[2022-05-02] MEDS: HYDROCODONE/ACET 5/325 TABLET 1 TAB PO ×2 (03:57→12:21)
[2022-05-02 05:06] LABS: Calcium 7.4 mg/dL (8.4-10.2); Carbon Dioxide 31 mmol/L (22-32); Chloride 102 mmol/L (98-107); Estimated Glomerular Filt Rate > 60 mL/min (>60); Glucose 112 mg/dL (70-100); HEMOLYSIS < 15 (0-50); Phosphorous 3.1 mg/dL (2.5-4.5); Potassium 2.9 mmol/L (3.4-5.1); Sodium 137 mmol/L (137-145)
[2022-05-02 05:17] LABS: BUN Creatinine Ratio 3.2 (6-22); Blood Urea Nitrogen < 2 mg/dL (9-20)
[2022-05-02 05:45] LABS: Magnesium 1.7 mg/dL (1.6-2.3)
[2022-05-02] MEDS: FOLIC ACID 1 MG TABLET PO (08:41)
[2022-05-02] MEDS: chlordiazePOXIDE 25 MG CAPSULE PO ×2 (08:41→14:13)
[2022-05-02] MEDS: POTASSIUM CHLORIDE 20 MEQ TAB 40 MEQ PO ×2 (08:41→12:21)
[2022-05-02] MEDS: THIAMINE 100 MG TABLET PO (08:41)
[2022-05-02] MEDS: MULTIVITAMIN 1 TABLET 1 TAB PO (08:41)
[2022-05-02] MEDS: ENOXAPARIN 40 MG/0.4 ML SYRINGE SUBCUT (08:41)
[2022-05-02 13:53] LABS: Calcium 8.3 mg/dL (8.4-10.2); Carbon Dioxide 29 mmol/L (22-32); Chloride 101 mmol/L (98-107); Estimated Glomerular Filt Rate > 60 mL/min (>60); Glucose 107 mg/dL (70-100); HEMOLYSIS < 15 (0-50); Potassium 3.6 mmol/L (3.4-5.1); Sodium 136 mmol/L (137-145)
[2022-05-02 13:55] LABS: BUN Creatinine Ratio 3.2 (6-22); Blood Urea Nitrogen 2 mg/dL (9-20)
--- NOTE | 2022-05-02 14:17 | P.DS_ITS ---
History of Present Illness History of Present Illness Date Patient Seen: 05/02/22 Time Patient Seen: 14:17 Chief complaint: GI Bleed back pain Narrative: Mr. Antunez is a 56M with H alcohol abuse who presents to the hospital with nausea, vomiting and headaches. He does have a history of cholecystectomy with complication results in colostomy, now s/p reanastamosis. He states he drinks 3- 4 24 oz beers daily. His last drink was early this morning. He notes he had a fall a few days ago. He doesn't think he hit his head. He has developed headaches which he says is pounding like feeling right behind his eyes. He has been having nausea and vomiting, he has not noted bright red blood, his vomit has been brown. He has no black or bloody stools. He feels shaky, anxious. He has had withdrawal before but never had a seizure, never been intubated. In the ED workup was done, vitals notable for tachycardia in 120s. Labs notable for WBC 22.1, hgb 13.5, plts 306. Bicarb 10, creatinine 1.11. INR 0.9. LFTS with AST 87, ALT 36. Lactate 7.0. Procal 0.31. UA negative. Urine drug screen positive oxycodone, benzos positive. EtOH 190. CT head with no acute process. CT c-spine with no acture process. CT chest with no acute process. CT abdomen/pelvis with mild esophageal wall thickening, mild colon wall thickening, and hepatic steatosis. Family history: he denies significant alcohol abuse, cardiac history in family members Discharge Providers Provider Date of admission: 04/29/22 21:18 Discharge Date: 05/02/22 Primary care physician: Garrett Deleon MD Consults: 04/29/22 23:03 Consult to Dietitian, Adult Routine Comment: Reason For Exam: alcohol abuse Discharge provider: Leo Ruano DO Summary Hospital Course Discharge Diagnosis: 1. Alcohol withdrawal and alcohol abuse -did get 390mg of phenobarb in ED -ordered for CIWA protocol with ativan -SW eval, patient interested in detox -ordered high dose thiamine, plan for 500mg TID for 2 days -MVI, folate -librium added with plan for outpatient taper once discharged 2. Possible severe sepsis, ruled out -SIRS positive with tachycardia, tachypnea and elevated white count -initial lactate of 7, improved to 4.3 with fluids, continue to trend -procal initially 0.31 -chest xray and UA with no evidence of acute infection -possible colitis and esophagitis noted on CT scan-these are nonspecific findings -for now continue IV fluids -04/30 discontinued levaquin/flagyl for empiric antibiotics -blood cultures with no growth -no diarrhea at this time -discontinued antibiotics as there is no obvious infectious source and presentation is more consistent with dehydration and ETOH withdrawal 3. Vomiting, question bloody, now resolved -suspect secondary to alcohol abuse -treat alcohol abuse as above -zofran PRN for symptoms -no vomiting in ED -hgb normal on arrival -trend hemoglobin expect it will drop with hydration -sent home with PPI trial for esophagitis 4. Acidosis, resolved -initial bicarb on bmp is 10 -vbg showed pH of 7.33, nearly normal -lactate and ketones elevated -suspect alcoholic ketoacidosis -ordered for high dose thiamine -d5ns for fluids due to likely alcoholic ketoacidosis 6. Possible esophagitis/colitis, ruled out -CT scan showed abnormalities -suspect esophagitis may be secondary to vomiting -colitis is questionably infection -discontinued antibiotics as low likelihood infectious etiology -endoscopy not indicated at this time -continue PPI 7. Sinus tachycardia, resolved -suspect secondary to withdrawal vs infection -improving with fluids, antibiotics, and withdrawal meds 8. Headache, improving -suspect secondary to withdrawal -CT head showed no acute process -if headache not improved with treatment of withdrawal will need further workup for migraine vs cluster, unlikely meningitis Hospital Course: Admitted for alcohol withdrawal and possible alcoholic ketoacidosis. Recieved IV ativan and librium and improved. Also high dose thiamine, MV and folate. His bicarb improved from 10 to 29. Initially thought to potentially have colitis on CT abd and was on abx but these were stopped as infection was thought to be low likelihood. His vomiting resolved but continued to have some nausea. Sent home with protonix po 40mg BID for 4 weeks due to esophagitis seen on CT. Received potassium supplementation during admission and given education sheet on foods to eat which are rich in potassium. He will f/u with PCP in 2 weeks for hospital follow-up. Time Spent with Patient Time spent: Greater than 30 minutes Exam Vital Signs (past 8 hours): - 05/02/22 08:00 05/02/22 08:00 05/02/22 09:31 Temperature 98.6 F Pulse Rate 77 78 Respiratory Rate 16 16 Blood Pressure 107/65 107/65 Pulse Oximetry 98 100 Oxygen Delivery Method Room Air Oxygen Flow Rate 0 05/02/22 12:00 05/02/22 13:06 05/02/22 12:00 Temperature 98.8 F Pulse Rate 72 83 Respiratory Rate 19 17 Blood Pressure 124/68 123/75 Pulse Oximetry 98 99 Oxygen Delivery Method Room Air Oxygen Flow Rate 0 Oxygen Delivery Method Room Air Oxygen Flow Rate 0 Narrative Exam Narrative: General: Alert and cooperative, improved tremors and anxiety Lungs: Clear Heart: Regular rhythm Abdomen: Soft, tender across mid abdomen Extremities: No edema Neurological: No deficits Objective Labs Result Diagrams: 05/01/22 04:09 05/02/22 13:15 Labs: Laboratory Results - last 24 hr 05/02/22 05/02/22 05/02/22 04:12 04:12 13:15 Sodium 137 136 L Potassium 2.9 L 3.6 Chloride 102 101 Carbon Dioxide 31 29 BUN < 2 L 2 L Creatinine 0.63 L 0.63 L Estimated GFR > 60 > 60 BUN/Creatinine Ratio 3.2 L 3.2 L Glucose 112 H 107 H Calcium 7.4 L 8.3 L Phosphorus 3.1 D Magnesium 1.7 PFSH Medical History Alcoholism Chronic back pain Degenerative disc disease Facet arthropathy, lumbar Footdrop Gait instability Hepatic steatosis Herniated nucleus pulposus, L4-5 Melanotic stools Rectal pain RUQ pain Smoker Surgical History History of colostomy reversal Status post cholecystectomy Status post exploratory laparotomy Status post rotator cuff repair Family History Other No pertinent family history in first degree relatives Social History marital status: household members: spouse Smoking Status: Current every day smoker alcohol intake: current substance use type: does not use Discharge Plan Discharge Plan Patient Disposition: Home Provider Discharge Comment: You were admitted for alcohol withdrawal and improved with ativan and librium. I've put you on a librium taper for a few more days at home. I've also sent some vitamins to take for the next month. Also I've sent an antacid pill to take for [address] scan had some inflammation of the esophagus. Try to eat foods high in potassium as you had low levels while in the hospital. Discharge orders & Medications Prescriptions: New thiamine mononitrate (vit B1) 100 mg Tablet 100 mg PO DAILY Qty: 30 0RF multivitamin with folic acid [Tab-A-Yari] 400 mcg Tablet 1 tab PO DAILY Qty: 30 0RF chlordiazepoxide HCl 25 mg Capsule See Rx Instructions .ROUTE .COMPLEX Qty: 5 0RF Rx Instructions: 25 mg orally 3x daily for 1 day, then 25mg twice daily for 1 day, then 25mg at bedtime for 1 day pantoprazole [Protonix] 40 mg tablet,delayed release (DR/EC) 40 mg PO BID 30 Days Qty: 60 0RF Continued quetiapine 100 mg tablet 100 mg PO BEDTIME Follow up/Referrals: Garrett Deleon MD [Primary Care Provider] - 2 Weeks Visit Report/Discharge Packet Instructions: Alcohol Withdrawal, High-Potassium Diet Stand Alone Forms: Patient Portal/API, Stroke Signs & Symptoms Discharge Data Primary Care Provider: Garrett Deleon
== END 2022-05-02 15:00 | disposition home or self-care (01) | DRG 897 ==
LOC: ED 19:20 → AC 21:21 → ICU 04-30 12:04
PROVIDERS: Emergency Medicine; Internal Medicine; Student in an Organized Health Care Education/Training Program; Admitting Provider Internal Medicine; Emergency Provider Emergency Medicine; PCP Internal Medicine; Referring Provider Emergency Medicine; Visit Provider Internal Medicine
DX: F10.139 Alcohol abuse with withdrawal, unspecified (principal); R65.10 Systemic inflammatory response syndrome (SIRS) of non-infectious origin without acute organ dysfunction; E87.29 Other acidosis; F17.200 Nicotine dependence, unspecified, uncomplicated; R51.9 Headache, unspecified; R00.0 Tachycardia, unspecified; Y90.6 Blood alcohol level of 120-199 mg/100 ml; Z20.822 Contact with and (suspected) exposure to COVID-19
CPT/HCPCS: 0241U; 36415; 70450; 71260; 72125; 74177; 80048; 80053; 80305; 80320; 81003; 81015; 82009; 82805; 83605; 83690; 83735; 84100; 84145; 84443; 85025; 85610; 85730; 86850; 86900; 86901; 87040; 87797; 93005; 96365; 96366; 96367; 96375; 96376; 99284; 99291; C9113; J1650; J1956; J2060; J2405; J2560; Q9967

== ENCOUNTER 2022-07-10 11:28 | Emergency (ER) | payer MEDICARE, MEDICAID, SELFPAY ==
[2022-04-30 14:17] VITALS: BMI 24.3
[2022-07-10 11:33] VITALS: BP 133/81; PULSE 79; RESP 16; TEMP 36.7; O2SAT 100; BMI 25.0
--- NOTE | 2022-07-10 11:35 | DI.RAD.S_ITS ---
PROCEDURE: XR FOREARM RT 2V INDICATIONS: fall on outstretched arm TECHNIQUE: 2 views of the forearm were acquired. COMPARISON: None. FINDINGS: Bones: Cortical irregularity involving dorsal aspect of wrist joint is seen suggestive of a slightly displaced triquetral fracture suggest clinical correlation. No other fracture or dislocation. Osteoarthritic changes along radial aspect of right wrist are seen most notably at 1st CMC joint No suspicious bony lesions. Soft tissues: No suspicious soft tissue calcifications or masses. IMPRESSION: No acute forearm fracture or dislocation. Possible dorsal triquetral fracture as above. Clinical correlation is recommended. Dorsal wrist soft tissue swelling. No gross forearm soft tissue abnormalities. Right wrist joint osteoarthritis. Dictated by: Miguel Echavarria M.D. on 07/10/2022 at 12:06 Approved by: Miguel Echavarria M.D. on 07/10/2022 at 12:07
--- NOTE | 2022-07-10 12:12 | ED.UPPEXIN ---
HPI - Extremity Injury (Upper) <Charisse Sahu PA-C - Last Filed: 07/10/22 14:10> General Chief Complaint: Extremity Injury, Upper Stated Complaint: fell on deck and broke or tore tendons RT wrist Time Seen by Provider: 07/10/22 12:08 Mode of arrival: Family Vehicle History of Present Illness HPI narrative: 57-year-old male presents with concern for right forearm pain after he fell this morning around 7:30 a.m.. Patient states he was going out around the house because his dog had run out he was coming down some steps off of his deck when he had the 2nd step it was slippery and he fell backwards onto his deck with his right arm stretch behind him with his wrist extended. He states he immediately had pain and a little bit of tingling he is concerned that he may have torn some muscles or injured some tendons. He states he has pain and discomfort on the anterior aspect of his forearm in the soft tissue as well as his right wrist. He denies any previous history of injury or surgery to this area. Though he does endorse chronic right shoulder problems and actually had a steroid shot yesterday. He states his shoulder is not bothering him today. He describes his pain as sharp and a 5 or 6/10 when he is not moving or pressing on it and it is up to a 7/10 when he is moving or pressing on it. Denies any other injuries, specifically denies hitting his head loss of consciousness or any neck pain. Related Data Home Medications Medication Instructions Recorded Confirmed quetiapine 100 mg tablet 100 mg PO BEDTIME 12/24/21 04/29/22 Previous Rx's Medication Instructions Recorded chlordiazepoxide HCl 25 mg capsule See Rx Instructions .Route 05/02/22 .COMPLEX #5 caps multivitamin with folic acid 400 1 tab PO DAILY #30 tabs 05/02/22 mcg tablet (Tab-A-Yari) thiamine mononitrate (vit B1) 100 100 mg PO DAILY #30 tabs 05/02/22 mg tablet Allergies Allergy/AdvReac Type Severity Reaction Status Date / Time Penicillins Allergy Severe Anaphylaxis Verified 07/10/22 11:34 Review of Systems <Charisse Sahu PA-C - Last Filed: 07/10/22 14:10> Review of Systems Narrative: Unremarkable except as noted in the HPI Patient History <Charisse Sahu PA-C - Last Filed: 07/10/22 14:10> Medical History Alcoholism Chronic back pain Degenerative disc disease Facet arthropathy, lumbar Footdrop Gait instability Hepatic steatosis Herniated nucleus pulposus, L4-5 Melanotic stools Rectal pain RUQ pain Smoker Surgical History History of colostomy reversal Status post cholecystectomy Status post exploratory laparotomy Status post rotator cuff repair Family History Other No pertinent family history in first degree relatives Social History marital status: household members: spouse Smoking Status: Current every day smoker alcohol intake: current substance use type: does not use Smoking Status: Current every day smoker alcohol intake frequency: 3 or more drinks per day Alcohol type: beer Substance Use Type: does not use Exam <Charisse Sahu PA-C - Last Filed: 07/10/22 14:10> Narrative Exam Narrative: GENERAL: 57 year old patient appears stated age. Well-developed patient, in mild distress. HEAD: Atraumatic. Normocephalic. EYES: Pupils equal round and reactive. Extraocular motions intact. No scleral icterus. No injection or drainage. ENT: Nose without bleeding, purulent drainage. Airway patent. NECK: Trachea midline. Non tender CARDIOVASCULAR: Regular rate and rhythm without murmurs, gallops, or rubs. RESPIRATORY: Clear to auscultation. Breath sounds equal bilaterally. No wheezes, rales, or rhonchi. EXTREMITIES: In the affected right extremity the patient has tenderness and some bruising over the anterior upper forearm soft tissue, some bruising over the distal lateral ulna with tenderness, some tenderness over the mid to distal radius laterally and significant tenderness at the medial aspect of the right wrist with sharp pain that shoots up his arm with palpation of this region. Patient has reduced strength in the fingers but is able to form movement passively. Sensation is intact, range of motion at the wrist is reduced 2nd to pain. Range of motion at the elbow is intact, patient has increased pain and difficulty performing supination and pronation. No other edema or joint tenderness. NEURO: AOx3. SKIN: No rash or erythema of visible areas Initial Vital Signs Initial Vital Signs: Vital Signs Temperature 98.1 F 07/10/22 11:33 Pulse Rate 79 07/10/22 11:33 Respiratory Rate 16 07/10/22 11:33 Blood Pressure 133/81 07/10/22 11:33 Pulse Oximetry 100 07/10/22 11:33 Oxygen Delivery Method Room Air 07/10/22 11:33 <Narcisa Owens DO - Last Filed: 07/14/22 11:59> Initial Vital Signs Initial Vital Signs: Vital Signs Temperature 98.1 F 07/10/22 11:33 Pulse Rate 79 07/10/22 11:33 Respiratory Rate 16 07/10/22 11:33 Blood Pressure 133/81 07/10/22 11:33 Pulse Oximetry 100 07/10/22 11:33 Oxygen Delivery Method Room Air 07/10/22 11:33 Course <Charisse Sahu PA-C - Last Filed: 07/10/22 14:10> Orders Ordered: Discontinued Medications Hydrocodone Bitart/Acetaminophen (Hydrocodone/Acet 5/325 Tablet) 1 tab PO NOW ONE Stop: 07/10/22 12:59 Last Admin: 07/10/22 13:17 Dose: 1 tab Documented By: NR Consultations Consultation #1: Requested consult for on-call orthopedics Time: 12:40 Consultation #2: Spoke with Dr. Stratton who states he is happy to see the patient in clinic agrees with the plan for long-arm splint. Time: 13:55 Vital Signs Vital signs: Vital Signs - 8 hr 07/10/22 11:33 Temperature 98.1 F Pulse Rate 79 Respiratory Rate 16 Blood Pressure 133/81 Pulse Oximetry 100 Oxygen Delivery Method Room Air <Narcisa Owens DO - Last Filed: 07/14/22 11:59> Orders Ordered: Discontinued Medications Hydrocodone Bitart/Acetaminophen (Hydrocodone/Acet 5/325 Tablet) 1 tab PO NOW ONE Stop: 07/10/22 12:59 Last Admin: 07/10/22 13:17 Dose: 1 tab Documented By: NR Vital Signs Vital signs: Vital Signs - 8 hr 07/10/22 11:33 Temperature 98.1 F Pulse Rate 79 Respiratory Rate 16 Blood Pressure 133/81 Pulse Oximetry 100 Oxygen Delivery Method Room Air MDM - Extremity Injury (Upper) <Charisse Sahu PA-C - Last Filed: 07/10/22 14:10> Differential Diagnosis Differential diagnosis: Likely sprain and strain of wrist, fracture of wrist and other (sprain, strain, forearm, triquetral fx) Medical Records Medical records narrative: I have reviewed the patient's medical records Imaging Data Extremity x-ray #1: My Impression: Agree with radiology's interpretation Radiologist's Impression: [address] [address] XRay Report Signed Patient: Shane Antunez MR#: [id number] : 1965 Acct:[id number] Age/Sex: 57 / M Date of Service: 07/10/22 Loc: ED Accession Number: [id number] ?? Procedure: XR forearm RT 2V Ordering Provider: Narcisa Owens D.O. PROCEDURE:? XR FOREARM RT 2V ? INDICATIONS:? fall on outstretched arm ? TECHNIQUE:? 2 views of the forearm were acquired.? ? COMPARISON:? None. ? FINDINGS:? ? Bones:? Cortical irregularity involving dorsal aspect of wrist joint is seen suggestive of a slightly displaced triquetral fracture suggest clinical correlation.? No other fracture or dislocation.? Osteoarthritic changes along radial aspect of right wrist are seen most notably at 1st CMC joint? No suspicious bony lesions.? ? Soft tissues:? No suspicious soft tissue calcifications or masses.? ? ? IMPRESSION:? No acute forearm fracture or dislocation.? Possible dorsal triquetral fracture as above.? Clinical correlation is recommended.? Dorsal wrist soft tissue swelling.? No gross forearm soft tissue abnormalities.? Right wrist joint osteoarthritis. ? ? ? Dictated by: Miguel Echavarria M.D. on 07/10/2022 at 12:06 ? ? Approved by: Miguel Echavarria M.D. on 07/10/2022 at 12:07?? MDM Narrative Medical decision making narrative: Is a well-appearing 57-year-old male who presents with concern for right wrist and forearm pain after falling from standing backwards onto his back after stepping down 1 step towards his yard. Exam today is consistent with muscle strain, but patient does have bony tenderness over the distal lateral radius as well as the right medial wrist. Patient did not hit his head or lose consciousness and denies any other pain. X-ray notes possible triquetral fracture given cortical irregularity. Orthopedics is consulted, medical records clerk Dr. Stratotn who agrees with plan. Considered more advanced imaging in the ER today however patient is disinterested in getting more imaging currently and feels this is something that can be done as outpatient if Orthopedics desires it. Patient has no significant reduced mobility and no neurovascular compromise. He is referred to see Dr. Stratton in clinic, provided with a short course of stronger pain meds hydrocodone advised to take Tylenol and ibuprofen as needed hydrocodone when needed. Return precautions provided, follow-up plan discussed, all questions answered. Discharge Plan Departure Patient Disposition: Home Clinical Impression: Fracture of triquetral bone of right wrist, Fall (on) (from) other stairs and steps, initial encounter, Forearm pain Instructions: DI for Wrist Fracture Activity Restrictions/Additional Instructions: Thank you for letting us be part of your care in the emergency department today. Your x-rays today were suggestive that you may have a fracture as there was a bony abnormality possible slight displacement of your triquetral bone in your right wrist. You also had some tenderness of your soft tissues in your forearm. We have consulted on-call orthopedics today and placed do in a splint. You will need to keep your splint dry. I have prescribed a short course of stronger pain meds for you I recommend you take Tylenol and ibuprofen alternating and only take the stronger meds when you absolutely need to. You should follow-up with orthopedics. A referral was placed. There is no evidence of an emergent or life threatening illness at this time, but follow up with your doctor in 1-2 days is recommended nonetheless to continue to rule out serious underlying causes of your symptoms. Please call the office for an appointment. Please return to the Emergency Department for any worsening or persistent symptoms. Please take medications as directed. Prescriptions: No Action thiamine mononitrate (vit B1) 100 mg Tablet 100 mg PO DAILY Qty: 30 0RF multivitamin with folic acid [Tab-A-Yari] 400 mcg Tablet 1 tab PO DAILY Qty: 30 0RF chlordiazepoxide HCl 25 mg Capsule See Rx Instructions .ROUTE .COMPLEX Qty: 5 0RF Rx Instructions: 25 mg orally 3x daily for 1 day, then 25mg twice daily for 1 day, then 25mg at bedtime for 1 day quetiapine 100 mg tablet 100 mg PO BEDTIME Referrals: Garrett Deleon MD [Primary Care Provider] - Brett Stratton MD [Physician] - (R triquetral fx) Stand Alone Forms: Patient Portal/API, Work Release Note <Narcisa Owens DO - Last Filed: 07/14/22 11:59> Cosign ED Attending Cosignature Attestation: I was immediately available in the department for consultation. This documentation has been reviewed and I agree with assessment and plan. Supervised by Narcisa Owens DO.
[2022-07-10] MEDS: HYDROCODONE/ACET 5/325 TABLET 1 TAB PO (13:17)
== END 2022-07-10 14:11 | disposition home or self-care (01) ==
PROVIDERS: Emergency Provider Student in an Organized Health Care Education/Training Program; PCP Internal Medicine
DX: S62.101A Fracture of unspecified carpal bone, right wrist, initial encounter for closed fracture (principal); M79.631 Pain in right forearm; W01.0XXA Fall on same level from slipping, tripping and stumbling without subsequent striking against object, initial encounter
CPT/HCPCS: 29105; 73090; 99283; 99284

== ENCOUNTER 2022-10-08 10:40 | Outpatient (CLI) | payer MEDICARE, MEDICAID, SELFPAY ==
[2022-04-30 14:17] VITALS: BMI 24.3
[2022-10-08] VITALS (12 sets, daily range): BP systolic 105–128; BP diastolic 57–68; PULSE 55–72; RESP 11–20; TEMP 36; O2SAT 99–100
--- NOTE | 2022-10-08 10:41 | DI.RAD.S_ITS ---
PROCEDURE: PAIN L/S MED/LAT N RFA BILAT INDICATIONS: SPONDYLOSIS COMPARISON: [facility], MR, MR LUMBAR SPINE WO CON, 02/17/2022, 13:11. [facility], XA, PAIN L/S FACET INJ/BLK 1ST NOEL, 01/31/2022, 14:01. FINDINGS: Fluoroscopic spot filming was performed to verify placement of spinal needles on both sides at the L4, L5, and S1 levels, as labeled on the films. IMPRESSION: Images during rhizotomy within normal limits. Dictated by: Patel Machado M.D. on 10/08/2022 at 16:54 Approved by: Patel Machado M.D. on 10/08/2022 at 16:55
[2022-10-08] MEDS: BUPIVACAINE 0.5% (PF) 10 ML VIAL 5 ML INJ (11:50)
[2022-10-08] MEDS: LIDOCAINE 1% 20 ML 5 ML INJ (11:50)
[2022-10-08] MEDS: MIDAZOLAM 2 MG/2 ML VIAL 4 MG IV (11:59)
--- NOTE | 2022-10-08 12:28 | P.PCN_ITS ---
Date/Time/Diagnoses Date of procedure: 10/08/22 Time of procedure: 12:28 Pre-procedure diagnosis: 1. RECALCITRANT FACET ARTHROPATHY Post-procedure diagnosis: same Procedure Notes Procedure: 1. BILATERAL L4 AND L5 MEDIAL BRANCH RADIOFREQUENCY NEUROTOMY AND S1 DORSAL RAMUS BRANCH RADIOFREQUENCY NEUROTOMY Indications: Shane is referred by ALIX Jacobson for treatment of facet arthropathy. Physician: Garrett Corral Total Fluoroscopy time (seconds): 23 Total sedation minutes: 35 Complications: none Procedure in detail & Post-procedure care: DESCRIPTION OF PROCEDURE Bilateral L4 and L5 medial branch radiofrequency neurotomy and bilateral S1 dorsal ramus radiofrequency neurotomy under fluoroscopy with conscious sedation. The patient is well known to this clinic having undergone previous facet injections with good but temporary relief. The patient has experienced appropriate, concordant relief with previous facet and median branch blocks but the patient's pain has been recalcitrant to further conservative measures. Therefore, based upon the patient's relief and persistent symptoms, the patient is considered an appropriate candidate for facet rhizotomy. All of the patient's questions regarding the risks versus benefits of the procedure, including, but not limited to, bleeding, infection, temporary as well as lasting nerve injury, paralysis, stroke, and , as well treatment alternatives were answered to satisfaction. After obtaining informed consent, denial of pertinent drug allergies, as well as being made aware of the potential risks of bleeding, infection, spinal cord trauma, paralysis, temporary and permanent nerve damage, seizure, stroke, and possible , the patient was brought to the fluoroscopy suite and positioned prone on the fluoroscopy table. The lumbar region was prepped with Betadine and covered with a fenestrated drape in the usual sterile fashion. Appropriate monitors applied including pulse oximeter, pulse, and blood pressure for regular monitoring throughout the procedure. After review of previous anaesthesic history and IV conscious sedation the patient was deemed safe to proceed with today's procedure with IV conscious sedation as ASA class II designation. Safety time-out was performed to confirm patient ID, procedure to be performed and site of procedure. IV sedation was accomplished with a combination of 4mg of Versed administered by the RN after DO order, titrated to patient comfort during the course of the procedure while the patient remained responsive to all verbal commands. After local infiltration using 1% lidocaine, under fluoroscopic guidance, a 10- cm RF insulated needle with a 10-mm active tip was positioned parallel to the junction of the right sacral ala and the superior articulating process where the S1 dorsal ramus resides. Needle placement was confirmed with motor stimulation of .5v on the right which produced local stimulation without radicular component. The stimulation was then increased to 2v with, once again, only local multifidus stimulation without radicular component. The needle was then removed and the identical procedure was performed along the length of the right L5 medial branch with motor stimulation at .7v on the right. The identical procedure was once again performed along the length of the right L4 medial branch with motor stimulation of .5v on the right. The medial branches were then anesthetised with 0.5% Marcaine. This was then followed by two discreet lesions performed at 80 degrees Celsius for 90 seconds each. The identical procedure was repeated on the left. The patient tolerated the procedure well without signs or symptoms of complications prior to transfer to the recovery area continued monitoring without incident. The patient was then transferred to the recovery area where they were observed for an appropriate period of time after the injection. The patient reported a VAS score of 9 prior to the procedure and a post-procedure VAS of 0. POST OP INSTRUCTIONS The patient was provided a Pain Log to continue to record the patient's response to the target-specific procedure prior to the patient's follow-up visit with the referring physician. Additionally, specific post-injection care instructions and a contact number to our office were provided if concerns arise regarding possible complications associated with the procedure are suspected.
== END 2022-10-08 12:37 | disposition home or self-care (01) ==
LOC: RAD 10:40
PROVIDERS: PCP Physician Assistant; Referring Provider Physical Medicine & Rehabilitation; Visit Provider Physical Medicine & Rehabilitation
DX: M47.816 Spondylosis without myelopathy or radiculopathy, lumbar region (principal); M47.817 Spondylosis without myelopathy or radiculopathy, lumbosacral region
CPT/HCPCS: 64635; 64636; 99152; 99153; J2250

== ENCOUNTER → 2023-07-08 15:12 | Outpatient (CLI) | payer MEDICARE, MEDICAID, SELFPAY ==
[2022-04-30 14:17] VITALS: BMI 24.3
--- NOTE | 2023-07-08 | DI.MRI.S_ITS ---
PROCEDURE: MR LUMBAR SPINE WO CON INDICATIONS: Spinal stenosis, lumbar region TECHNIQUE: Noncontrast sagittal T1 spin echo and T2 fast echo, sagittal STIR, and T2 fast spin echo through the lumbar spine. In cases with scoliosis, additional coronal T2 fast spin echo may be performed. COMPARISON: [facility], MR, MR LUMBAR SPINE WO CON, 02/17/2022, 13:11. FINDINGS: Image quality: Excellent. Alignment and Curvature: Straightening of the normal lumbar lordosis. Bone Marrow: Marrow is of normal overall signal. No acute vertebral body compression fractures. Spinal Cord: Conus medullaris terminates at the T12-L1 level. Visualized cord demonstrates normal signal and size. Paraspinous Soft Tissues: No paravertebral masses. T12-L1: Normal appearance. L1-L2: Mild diffuse disc bulge. Mild disc desiccation. No central canal or neural foraminal stenosis. L2-L3: Normal appearance. L3-L4: Mild bilateral facet arthropathy. Minimal disc bulge. No central canal or neural foraminal stenosis. L4-L5: Disc desiccation. Mild circumferential disc bulge with annular tear. Facet arthropathy and thickening of ligamentum flavum. Stable mild central canal stenosis. No neural foraminal stenosis. L5-S1: Facet arthropathy. Disc desiccation and mild diffuse disc bulge. No central canal stenosis. Mild bilateral neural foraminal stenosis is stable. IMPRESSION: Mild degenerative changes of the lumbar spine are not significantly changed compared to prior exam, as described above. Dictated by: Brando Ruiz M.D. on 07/08/2023 at 16:30 Approved by: Brando Ruiz M.D. on 07/08/2023 at 16:34
== END ==
LOC: MRI 15:13
PROVIDERS: PCP Physician Assistant; Referring Provider Physician Assistant; Visit Provider Physician Assistant
DX: M48.062 Spinal stenosis, lumbar region with neurogenic claudication (principal); M48.07 Spinal stenosis, lumbosacral region; M47.26 Other spondylosis with radiculopathy, lumbar region; M47.27 Other spondylosis with radiculopathy, lumbosacral region; M51.16 Intervertebral disc disorders with radiculopathy, lumbar region; M51.17 Intervertebral disc disorders with radiculopathy, lumbosacral region
CPT/HCPCS: 72148

== ENCOUNTER 2023-11-30 16:02 | Emergency (ER) | payer MEDICARE, MEDICAID, SELFPAY ==
[2022-04-30 14:17] VITALS: BMI 24.3
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
[2023-11-30 16:14] VITALS: BP 119/83; PULSE 99; RESP 18; TEMP 36.7; O2SAT 97; BMI 25.0
--- NOTE | 2023-11-30 16:15 | DI.RAD.S_ITS ---
PROCEDURE: XR HAND RT MIN 3V INDICATIONS: status post fall, pain primarily to the base of the thumb, TECHNIQUE: 3 views of the hand(s) acquired. COMPARISON: None. FINDINGS: Bones: Acute transverse fracture through 1st distal phalangeal base is seen with minimal volar displacement at fracture site. Carpal bones are normally aligned. No suspicious bony lesions. Soft tissues: No suspicious soft tissue calcifications. IMPRESSION: Slightly displaced 1st distal phalangeal base fracture as above. Dictated by: Miguel Echavarria M.D. on 11/30/2023 at 17:17 Approved by: Miguel Echavarria M.D. on 11/30/2023 at 17:18
[2023-11-30] MEDS: KETOROLAC 30 MG/ML VIAL IM (16:27)
--- NOTE | 2023-11-30 17:47 | PC.NURSE ---
pt walked out to lobby to leave. I went out and got him around 1705. told him that he wasn't discharged yet and needed an updated tdap. explained to him the reason.. Dr. Jenkins aware . pt agreed to stay. i went to get the tdap and patient got up and left. pt had his keys. his truck is at [facility]. we went to look for the patient. unable to locate him. Dr. Jenkins aware. Pt has a break in his 1st joint , right hand. Dr. Bartholomew wanted patient called back to come in. I needed to call his since patient did not have a cell phone with him. I called and spoke with his and she was going to meet him at [facility]. I made her aware of the need for patient to return to [facility] and that he has a broken finger. dr. teixeira.
== END 2023-11-30 17:20 | disposition left against medical advice (07) ==
PROVIDERS: Emergency Provider Student in an Organized Health Care Education/Training Program; PCP Physician Assistant
DX: S62.511A Displaced fracture of proximal phalanx of right thumb, initial encounter for closed fracture (principal); W51.XXXA Accidental striking against or bumped into by another person, initial encounter; Z53.29 Procedure and treatment not carried out because of patient's decision for other reasons
CPT/HCPCS: 73130; 96372; 99283; J1885

== ENCOUNTER → 2024-10-21 12:48 | Outpatient (CLI) | payer MEDICARE, MEDICAID, SELFPAY ==
[2022-04-30 14:17] VITALS: BMI 24.3
--- NOTE | 2024-10-21 12:50 | DI.MRI.S_ITS ---
PROCEDURE: MR SHOULDER RT WO CON INDICATIONS: chronic right shoulder pain TECHNIQUE: Noncontrast oblique coronal T2 fast spin echo with fat saturation, oblique sagittal T1 spin echo and T2 fast spin echo with fat saturation, axial T1 spin echo and T2 fast spin echo with fat saturation through the shoulder. COMPARISON: [facility], MR, MR SHOULDER LT WO CON, 05/19/2021, 11:21. [facility], MR, MR SHOULDER RIGHT WITHOUT CONTRAST, 05/04/2024, 12:18. FINDINGS: Image quality: Diagnostic Rotator cuff: Bulk: Mild teres minor atrophy, nonspecific Teres minor: Intact Supraspinatus: Partial-thickness moderate tear at the footplate. Bursal surface stripping and interstitial partial tears also seen more proximally. Infraspinatus: [id number] multifocal partial-thickness tears, particularly at the distal insertion. Subscapularis: [id number] tendinopathy and interstitial tears. Bones and bursae: GH joint: Moderate arthrosis AC joint: Moderate arthrosis Humeral head: No acute fracture Scapula and acromion: No acute fracture Bursa: Mild subacromial bursal edema Capsule: Labrum: Superior labral tear extending to the posterior labrum. Anterior labral tear also suspected this is more obvious than 05/04/2024. Long head biceps tendon: Not well seen IGHL: Unremarkable Rotator interval: Preserved fat signal Soft tissues: No axillary adenopathy. Lungs are not well seen. IMPRESSION: Multifocal mild and moderate rotator cuff tears and tendinopathy as described above, similar to recent prior imaging. Mild teres minor atrophy. Moderate glenohumeral and acromioclavicular arthrosis, also similar to prior imaging. Superior and posterior labral tears. Possible additional anterior labral tear. This is worse than recent prior imaging. Long head biceps tendon is not well seen, either torn/scarred or representing postsurgical changes. Correlate with clinical history. Subacromial subdeltoid bursal edema is present Dictated by: Chris Cat M.D. on 10/23/2024 at 15:29 Approved by: Chris Cat M.D. on 10/23/2024 at 15:36
== END ==
LOC: MRI 12:48
PROVIDERS: PCP Physician Assistant; Referring Provider Orthopaedic Surgery; Visit Provider Orthopaedic Surgery
DX: S43.491A Other sprain of right shoulder joint, initial encounter (principal); M75.111 Incomplete rotator cuff tear or rupture of right shoulder, not specified as traumatic; M19.011 Primary osteoarthritis, right shoulder; M25.511 Pain in right shoulder; M67.911 Unspecified disorder of synovium and tendon, right shoulder; M25.411 Effusion, right shoulder
CPT/HCPCS: 73221

== ENCOUNTER → 2025-02-24 09:40 | Outpatient (CLI) | payer MEDICARE, MEDICAID, SELFPAY ==
[2022-04-30 14:17] VITALS: BMI 24.3
--- NOTE | 2025-02-24 09:41 | DI.CT.S_ITS ---
PROCEDURE: CT LUNG LOW DOSE SCREENING INDICATIONS: Lung Cancer Screening TECHNIQUE: Noncontrast 2.0-2.5 mm thick sections acquired from the pulmonary apices to the posterior costophrenic angles. 7 mm thick axial MIP, and 5 mm coronal and sagittal reformats were then acquired. For radiation dose reduction, the following was used: automated exposure control, adjustment of mA and/or kV according to patient size. COMPARISON: [facility], CT, CT CHEST ABD PEL W CON, 04/29/2022, 19:30. FINDINGS: Image quality: Diagnostic. Lower Neck: No enlarged lymph nodes. Thyroid: No thyroid nodules which require sonographic follow up, per consensus guidelines. Axillae: No enlarged lymph nodes. Chest Wall: Unremarkable. Bones: No suspicious osseous lesion. Lungs and Pleura: No pneumothorax or pleural effusions. No acute airspace opacity. -Right minor fissure pulmonary nodule measuring 0.7 cm. Unchanged since 2022. Has the appearance of an intrapulmonary lymph node. -Left lung base pulmonary nodule measuring 0.7 cm, (3/282), not significantly changed. -Suspected mucous plug at the right lower lobe, (3/229). There are a few areas of mucous plugging in the bronchi. Mild bronchiectasis. Mild emphysematous change. Heart: Heart size is normal. No pericardial effusion. Thoracic Vessels: The aorta and pulmonary arteries demonstrate normal size. Mediastinum and Brittany: No enlarged lymph nodes. Esophagus: No wall thickening. No hiatal hernia. Upper Abdomen: Question liver surface nodularity. Post cholecystectomy. Small nonobstructing right kidney stone. No adrenal nodule. IMPRESSION: No new or enlarging pulmonary nodules. LUNG-RADS 2; continued annual screening, if eligible. Clinically Significant Non-pulmonary Findings: None. Question liver surface nodularity. This raises the possibility of cirrhosis. Dictated by: Dangelo Lancaster M.D. on 02/24/2025 at 11:55 Approved by: Dangelo Lancaster M.D. on 02/24/2025 at 12:07
== END ==
LOC: CT 09:40
PROVIDERS: PCP Physician Assistant; Referring Provider Physician Assistant; Visit Provider Physician Assistant
DX: Z12.2 Encounter for screening for malignant neoplasm of respiratory organs (principal); F17.210 Nicotine dependence, cigarettes, uncomplicated
CPT/HCPCS: 71271

== ENCOUNTER → 2025-03-03 09:46 | Outpatient (CLI) | payer MEDICARE, MEDICAID, SELFPAY ==
[2022-04-30 14:17] VITALS: BMI 24.3
--- NOTE | 2025-03-03 09:47 | DI.US.S_ITS ---
PROCEDURE: US ABDOMEN LIMITED
== END ==
LOC: US 09:47
PROVIDERS: PCP Physician Assistant; Referring Provider Physician Assistant; Visit Provider Physician Assistant
DX: R93.2 Abnormal findings on diagnostic imaging of liver and biliary tract (principal); Z90.49 Acquired absence of other specified parts of digestive tract
CPT/HCPCS: 76705